=== PATIENT | male | born 1995 | race African-American/Black ===

== ENCOUNTER 2020-02-20 23:20 | Emergency (ER) | payer OTHER, MEDICAID, SELFPAY ==
[2020-02-21 00:44] VITALS: BP 126/64; PULSE 67; RESP 18; TEMP 36.9; O2SAT 98; BMI 29.0
--- NOTE | 2020-02-21 00:57 | CT_ITS ---
EXAMINATION: CT HEAD WITHOUT CONTRAST CLINICAL INFORMATION: Headache. Blurry vision. COMPARISON: None. TECHNIQUE: Contiguous axial imaging was performed from the skull base to vertex without intravenous contrast. This CT examination was performed using dose optimization techniques as appropriate, variously including the following: * Automated exposure control * Adjustment of mA and/or kV according to patient size (this includes techniques or standardized protocols for targeted exams where dose is matched to indication/reason for exam; i.e. extremities or head) Use of iterative reconstruction technique DLP: 800 mGy-cm. FINDINGS: There is no evidence of acute intracranial hemorrhage or territorial infarction. No abnormal mass effect or midline shift is seen. Carranza to white matter differentiation is well preserved. No extra-axial fluid collections are identified. No hydrocephalus. No significant volume loss. There is no abnormal attenuation within the brain parenchyma. The osseous structures and soft tissues are normal. Right mastoid air cell effusion. The left mastoid air cells and visualized portions of the paranasal sinuses are well aerated. CT/CT head/brain wo con IMPRESSION: No acute intracranial pathology. Right mastoid air cell effusion.
--- NOTE | 2020-02-21 00:59 | ED_ITS ---
HPI - Headache General Chief Complaint: Headache Stated Complaint: MIGRAINE/EYE PAIN Time Seen by Provider: 02/21/20 00:49 Source: patient Mode of arrival: ambulatory Limitations: language barrier (Citizen [place] Speaking ) History of Present Illness HPI Narrative: 25yoM c PMHx of depression presenting to the ED c c/o headache at the temporal aspect for a few weeks that has been intermittent worse c light sensitivity. and associated blurry vision. Patient reports he has tried [id number] Motrin and Tylenol with no symptomatic relief. Denies any associated symptoms or any additional complaints or concerns at this time. Related Data Allergies Allergy/AdvReac Type Severity Reaction Status Date / Time No Known Allergies Allergy Verified 02/21/20 00:52 [No Known Allergies*] Review of Systems Review of Systems: Constitutional : No Weight loss, No Fever, No Chills, No Night Sweats, No Fatigue, No Malaise ENT/Mouth : No Hearing loss, No Ear Pain, No Nasal Congestion, No Sinus Pain, No Hoarseness, No sore throat, No Rhinorrhea, No Swallowing Difficulty Eyes: + Blurry Vision, No Eye Pain, No Swelling, No Redness, No Foreign Body, No Discharge, Cardiovascular : No Chest Pain, No SOB Respiratory : No Cough, No Sputum Gastrointestinal : No Nausea, No Vomiting, No Diarrhea, No Constipation, No abdominal Pain Genitourinary : no irregular bleeding, No Dysuria, No Urinary Frequency, No Hematuria Musculoskeletal : No joint pain, No Myalgias, No Joint Swelling Skin : No Skin Lesions, No rash Neuro :+Headache, No Weakness, No Numbness, No Paresthesias, No Loss of Consciousness, No Dizziness Heme/Lymph: No Lymphadenopathy Yes all other systems are reviewed and are negative [facility] Past Medical History Attestation statement: The following information was validated with the patient. Medical History Depression Surgical History No significant past surgical history Social History Social History Advance Directives: No Physical Exam Vital Signs: Vital Signs: Vital Signs Temp Pulse Resp BP Pulse Ox 02/21/20 01:15 64 16 112/73 99 02/21/20 00:44 98.5 F 67 18 126/64 98 Body Mass Index 29.0 Vital signs have been reviewed as normal and appeared to be correct. Blood pressure normal. Heart rate normal. Respiration rate normal. Temperature normal. Oxygen saturation normal. Appearance: Alert. Oriented X3. No acute distress. Head: Normal external exam. Normocephalic. Atraumatic. Able to rotate head bila terally. No temporal artery tenderness. Eyes: PERRLA. EOMI. No nystagmus noted. Conjunctiva and sclera normal. Eyelids normal. Corneal reflex normal. ENT: EAC normal. TM's Normal. Hearing normal. Pharynx normal. Uvula midline. tongue midline. Moist mucous membranes. No trismus noted. No drooling noted. No muffled voice noted. Neck: Normal inspection. Neck supple. FROM. No adenopathy. Thyroid Normal. No meningeal signs. No neck mass noted. CVS: Normal heart rate and rhythm. Heart sound normal. No murmurs noted. Pulses normal throughout. Respiratory: No respiratory distress. Painless inspiration. Breath sounds normal. No wheezes/rales/rhonchi noted. Chest nontender. No accessory muscle usage noted or decreased air movement noted. Abdomen: Soft and nontender. Bowel sounds normal in all 4 quadrants. No distention noted. No organomegaly noted. No visible injury noted. Back: No CVA tenderness. Full range of motion noted. Skin: Skin warm and dry. Normal skin color. Normal skin turgor. No rashes/lesions/lacerations noted. Extremities: No lower extremity edema. Extremities exhibit normal range of motion. Extremities nontender. Able to shrug shoulders bilaterally and keep up against resistance. Neuro: Oriented X 3. No motor deficit. No sensory deficit. Reflexes normal. Mo ving all extremities. No focal motor deficits. Cranial nerves II-XI intact bilaterally. Facial strength normal. Normal cognition. Speech normal. Gait normal. Strength 5/5 throughout. No pronator drift. No tremor noted. No fasciculations noted. Muscle tone normal throughout. No asterixis noted. [id number] test normal. Heel to melo test normal. Tandem gait normal. Does not sway with eyes open. Romberg test negative. Rapid alternating movement upper extremity normal. Rapid alternating movement lower extremity normal. Hand drop from overhead-Mrs. face. No rigidity noted. NIHSS score 0. Course Course Course Narrative: 00:57AM 25yoM c PMHx of depression presenting to the ED c c/o headache at the temporal aspect for a few weeks that has been intermittent worse c light sensitivity. and associated blurry vision. - Patient afebrile, resting comfortably in no distress. Non-toxic appearing. Patient denies any recent trauma/injury to head. Neurological exam shows no deficits. BP WNL. Patient ambulates without difficulty. Given the history, and physical - most likely diagnosis: Migraine DUQUE or Cluster DUQUE. due to never having a headache before will obtain CT scan of brain. Will treat pain. Then re- evaluate. Reevaluation(s) Reevaluation #1: Labs within normal limits. Patient resting in bed. Her spray shins even and unlabored in no apparent distress. Awaiting CT scan of brain. Will re-evaluate. Time: 01:57 MDM - Headache MDM Narrative Medical decision making narrative: gradual onset DUQUE with photo/phonophobia. Most likely migraine HAs or Cluster HAs. SAH: unlikely given gradual onset. Intracranial bleed: unlikely given neg trauma, neg anticoagulation Meningitis: unlikely given pt afebrile, neg stiff neck, no immune compromise. Exam without signs of meningismus Temporal arteritis: Unlikely given Neg jaw claudication, no temporal tenderness or nodularity on exam. Cerebral venous thrombosis: unlikely given no h/o hypercoaguable state, no chronic head/neck infection. Medical Records Attestation: I reviewed the patient's medical records. Lab Data Attestation: I reviewed the patient's lab results. Result diagrams: 02/21/20 01:20 02/21/20 01:20 Labs: Lab Results 02/21/20 02/21/20 02/21/20 Range/Units 01:20 01:20 01:20 WBC 3.6 L (4.8-10.8) X10*3/uL RBC 5.17 (4.60-5.80) X10*6/uL Hgb 15.0 (14.0-18.0) g/dl Hct 45.0 (42-52) % MCV 87.0 (80-98) fL MCH 29.0 (27.0-33.0) pg MCHC 33.3 (31.0-36.0) g/dl RDW 11.8 (11.0-16.0) % Plt Count 291 (160-400) X10*3/uL MPV 9.2 L (9.4-12.4) fL Immature Gran % (Auto) 0.0 (0.0-0.4) % Neut % (Auto) 35.1 L (45-73) % Lymph % (Auto) 51.1 H (20-40) % [place] % (Auto) 10.2 (2-11) % Eos % (Auto) 2.5 (0-4) % Baso % (Auto) 1.1 (0-2) % Lymph # (Auto) 1.9 (1.2-4.9) X10*3/uL [place] # (Auto) 0.4 (0.1-1.2) X10*3/uL Eos # (Auto) 0.1 (0.0-0.4) X10*3/uL Baso # (Auto) 0.0 (0.0-0.2) X10*3/uL Abs Immat Gran (auto) 0.00 (0.00-0.03) X10*3/uL Absolute Neuts (auto) 1.3 L (2.0-8.3) X10*3/uL Absolute Nucleated RBC 0.000 (0.0-0.012) X10*3/uL Nucleated RBC % (auto) 0.0 (0.0-0.2) /100WBC PT 14.1 H (10.8-13.0) SEC INR 1.2 H (0.9-1.1) Sodium 140 (135-145) mmol/L Potassium 4.5 (3.3-5.1) mmol/l Chloride 104 (96-108) mmol/L Carbon Dioxide 27 (22-29) mmol/L Anion Gap 14 (12-20) BUN 20 H (9-16) mg/dL Creatinine 1.15 (0.5-1.4) mg/dL Estim Creat Clear Calc 99.9 Estimated GFR > 60 Random Glucose 109 (60-115) mg/dL Calcium 9.4 (8.4-10.2) mg/dL Magnesium 2.3 (1.6-2.6) mg/dL Total Bilirubin (0.0-1.0) mg/dL Direct Bilirubin (0.0-0.5) mg/dL AST (5-37) U/L ALT (0-40) U/L Alkaline Phosphatase (39-117) U/L C-Reactive Protein 0.21 (< or = 0.50) mg/dL Total Protein (6.5-8.0) g/dL Albumin (3.5-5.0) g/dL 02/21/20 Range/Units 01:20 WBC (4.8-10.8) X10*3/uL RBC (4.60-5.80) X10*6/uL Hgb (14.0-18.0) g/dl Hct (42-52) % MCV (80-98) fL MCH (27.0-33.0) pg MCHC (31.0-36.0) g/dl RDW (11.0-16.0) % Plt Count (160-400) X10*3/uL MPV (9.4-12.4) fL Immature Gran % (Auto) (0.0-0.4) % Neut % (Auto) (45-73) % Lymph % (Auto) (20-40) % [place] % (Auto) (2-11) % Eos % (Auto) (0-4) % Baso % (Auto) (0-2) % Lymph # (Auto) (1.2-4.9) X10*3/uL [place] # (Auto) (0.1-1.2) X10*3/uL Eos # (Auto) (0.0-0.4) X10*3/uL Baso # (Auto) (0.0-0.2) X10*3/uL Abs Immat Gran (auto) (0.00-0.03) X10*3/uL Absolute Neuts (auto) (2.0-8.3) X10*3/uL Absolute Nucleated RBC (0.0-0.012) X10*3/uL Nucleated RBC % (auto) (0.0-0.2) /100WBC PT (10.8-13.0) SEC INR (0.9-1.1) Sodium (135-145) mmol/L Potassium (3.3-5.1) mmol/l Chloride (96-108) mmol/L Carbon Dioxide (22-29) mmol/L Anion Gap (12-20) BUN (9-16) mg/dL Creatinine (0.5-1.4) mg/dL Estim Creat Clear Calc Estimated GFR Random Glucose (60-115) mg/dL Calcium (8.4-10.2) mg/dL Magnesium (1.6-2.6) mg/dL Total Bilirubin 0.7 (0.0-1.0) mg/dL Direct Bilirubin 0.3 (0.0-0.5) mg/dL AST 20 (5-37) U/L ALT 13 (0-40) U/L Alkaline Phosphatase 72 (39-117) U/L C-Reactive Protein (< or = 0.50) mg/dL Total Protein 7.6 (6.5-8.0) g/dL Albumin 4.7 (3.5-5.0) g/dL Discharge Plan Discharge Clinical Impression: Headache Instructions: Acute Headache (ED) Referrals: Ashley Camarillo MD [Primary Care Provider] - 2 days Print Language: Citizen [place]
[2020-02-21 01:15] VITALS: BP 112/73; PULSE 64; RESP 16; O2SAT 99
[2020-02-21] MEDS: 0.9 % Sodium Chloride 1,000 ML 999 ML IVCONT (01:23)
[2020-02-21 01:26] LABS: MANUAL DIFF FLAG NO
[2020-02-21 01:29] LABS: Basophils Percent Auto 1.1 % (0-2); Eosinophils Absolute Auto 0.1 X10*3/uL (0.0-0.4); Eosinophils Percent Auto 2.5 % (0-4); Lymphocytes Absolute Auto 1.9 X10*3/uL (1.2-4.9); Lymphocytes Percent Auto 51.1 % (20-40); Mean Corpuscular HGB Conc 33.3 g/dl (31.0-36.0); Mean Platelet Volume 9.2 fL (9.4-12.4); Monocytes Absolute Auto 0.4 X10*3/uL (0.1-1.2); Monocytes Percent Auto 10.2 % (2-11); Neutrophils Absolute Auto 1.3 X10*3/uL (2.0-8.3); Neutrophils Percent Auto 35.1 % (45-73); Platelet Count 291 X10*3/uL (160-400); Red Blood Count 5.17 X10*6/uL (4.60-5.80); Red Cell Distribution Width 11.8 % (11.0-16.0); White Blood Count 3.6 X10*3/uL (4.8-10.8)
[2020-02-21 01:36] LABS: INTERNATIONAL NORM RATIO 1.2 (0.9-1.1); Prothrombin Time 14.1 SEC (10.8-13.0)
[2020-02-21 01:50] LABS: Anion Gap 14 (12-20); Blood Urea Nitrogen 20 mg/dL (9-16); C Reactive Protein 0.21 mg/dL (< or = 0.50); Calcium 9.4 mg/dL (8.4-10.2); Carbon Dioxide 27 mmol/L (22-29); Chloride 104 mmol/L (96-108); Creatinine Clr Calc Pharmacy 99.9; Estimated Glomerular Filt Rate > 60; Glucose Random 109 mg/dL (60-115); Magnesium 2.3 mg/dL (1.6-2.6); Potassium 4.5 mmol/l (3.3-5.1); Sodium 140 mmol/L (135-145)
[2020-02-21 01:51] LABS: Alanine Aminotransferase 13 U/L (0-40); Albumin Level 4.7 g/dL (3.5-5.0); Alkaline Phosphatase 72 U/L (39-117); Aspartate Amino Transferase 20 U/L (5-37); Bilirubin Direct 0.3 mg/dL (0.0-0.5); Bilirubin Total 0.7 mg/dL (0.0-1.0); Total Protein 7.6 g/dL (6.5-8.0)
[2020-02-21 02:17] LABS: Erythrocyte Sedimentation Rate 2 MM/HR (0-15)
== END 2020-02-21 03:33 | disposition home or self-care (01) ==
PROVIDERS: Physician Assistant Medical; Emergency Provider Emergency Medicine; PCP Internal Medicine
DX: R51.9 Headache, unspecified (principal); H57.13 Ocular pain, bilateral
CPT/HCPCS: 36415; 70450; 80048; 80076; 83735; 85025; 85610; 85652; 86140; 96361; 96374; 99284

== ENCOUNTER 2020-07-08 09:02 | Outpatient (REF) | payer OTHER, MEDICAID, SELFPAY ==
--- NOTE | 2020-07-08 | PFT_ITS ---
Forced vital capacity and FEV1 are both slightly decreased. FEV1/FVC ratio 75, [id number] is moderately decreased. MVV also moderately decreased. Post bronchodilator therapy, there is significant improvement in [id number] and MVV. Total lung capacity and residual volume are normal. Diffusion capacity normal. CONCLUSION: There is a mild obstructive airway disorder involving small airways and it improved to almost normal after bronchodilator therapy. This finding may indicate mild bronchial asthma. Clinical correlation is recommended. Nerissa Painter MD MSB/MODL / [id number]
== END 2020-07-08 09:03 | disposition home or self-care (01) ==
LOC: HO.RESP 09:02
PROVIDERS: PCP Internal Medicine; Visit Provider Internal Medicine
DX: R06.02 Shortness of breath (principal)
CPT/HCPCS: 94060; 94727; 94729

== ENCOUNTER 2020-07-22 14:58 | Outpatient (REF) | payer OTHER, MEDICAID, SELFPAY ==
--- NOTE | 2020-07-22 | PFT_ITS ---
SPIROMETRY: FEV1 of 76% of predicted at 3.21 L. FVC 79% of predicted at 4.01 L. FEV1 to FVC ratio of 0.80. METHACHOLINE CHALLENGE: There has been no significant changes in FEV1 with full range of administered methacholine concentrations. IMPRESSION: Normal spirometry. No bronchodilator response. Negative methacholine challenge test. MD JENA Greenberg/MODL / [id number]
== END 2020-07-22 14:59 | disposition home or self-care (01) ==
LOC: HO.RESP 14:58
PROVIDERS: PCP Internal Medicine; Visit Provider Internal Medicine
DX: R06.02 Shortness of breath (principal)
CPT/HCPCS: 94070

== ENCOUNTER 2020-10-28 10:16 | Emergency (ER) | payer OTHER, MEDICAID, SELFPAY ==
[2020-10-28 10:32] VITALS: BP 104/62; PULSE 87; RESP 18; TEMP 37.2; O2SAT 97; BMI 28.8
[2020-10-28 11:39] LABS: COVID-19 Test Negative (Negative); IDNOW Serial# 9DD0AD1C
--- NOTE | 2020-10-28 12:04 | ED.GENADULT ---
HPI - General Adult General Chief complaint: General Medical Stated complaint: CHILLS Time Seen by Provider: 10/28/20 11:06 History of Present Illness HPI narrative: patient complains of runny nose congestion and sinus pressure and a mild frontal headache for 4-5 days, with body aches fatigue, no fever, mild cough not productive of sputum, no shortness of breath no sore throat Related Data Previous Rx's Medication Instructions Recorded amoxicillin-pot clavulanate 1 tab PO BID 7 Days #14 tab 02/21/20 [Augmentin] cyclobenzaprine 10 mg PO TID PRN #14 tab 02/21/20 ibuprofen 600 mg PO Q6H PRN #30 tab 02/21/20 acetaminophen 1,000 mg PO QID PRN #20 tab 10/28/20 amoxicillin 500 mg PO TID 7 Days #21 tab 10/28/20 ibuprofen 600 mg PO Q6H PRN #20 tab 10/28/20 Allergies Allergy/AdvReac Type Severity Reaction Status Date / Time No Known Allergies Allergy Verified 02/21/20 00:52 [No Known Allergies*] Review of Systems Review of Systems: Positive for runny nose, congestion and frontal headache Negatives are no fever no chills no dizziness no weakness no fainting no feeling faint no sore throat no difficulty breathing or swallowing no chest pain no sputum no shortness of breath no abdominal pain no nausea vomiting or diarrhea no dysuria no rash Yes all other systems are reviewed and are negative [facility] Past Medical History Source: nursing notes reviewed Medical History Depression Surgical History No significant past surgical history Social History Social History Advance Directives: No Advance Directives Information Provided: No Physical Exam Vital Signs: Vital Signs: Last Vital Signs Temp 99 F 10/28/20 10:32 Pulse 87 10/28/20 10:32 Resp 18 10/28/20 10:32 BP 104/62 10/28/20 10:32 Pulse Ox 97 10/28/20 10:32 Body Mass Index 28.8 General appearance is no acute distress Head is normocephalic atraumatic The ears have normal tympanic membranes no redness and canals are patent and normal The eyes no redness or discharge The pharynx no redness swelling or exudate, mucous membranes are moist Neck is supple without lymphadenopathy The nose did have a sinus tenderness, the frontal headache is reproduced with putting the head down and is in the area of the maxillary sinuses, the patient was congested Chest is clear to auscultation bilateral Heart no murmur Abdomen soft nontender Skin no rash Course Course Course Narrative: Patient with symptoms of sinusitis is treated with antibiotic and told if this may be viral but we are covering the possibility of bacterial infection and will return for any worsening condition COVID testing was negative Medical Decision Making Lab Data Labs: Lab Results 10/28/20 Range/Units 11:16 COVID-19 (SUNIL) Negative (Negative) COVID-19 Clin Com See Note Discharge Plan Discharge Clinical Impression: Sinusitis Patient Disposition: Home, Self-Care Additional Instructions: we are treating for sinusitis with amoxicillin For the sinus headache you can take Motrin and or Tylenol Return any time for any worse condition or any concerns Prescriptions: New amoxicillin 500 mg tablet 500 mg PO TID 7 Days Qty: 21 RF: 0 acetaminophen 500 mg tablet 1,000 mg PO QID PRN (Reason: pain) Qty: 20 RF: 0 ibuprofen 600 mg tablet 600 mg PO Q6H PRN (Reason: pain) Qty: 20 RF: 0 No Action cyclobenzaprine 10 mg tablet 10 mg PO TID PRN (Reason: muscle spasm) Qty: 14 RF: 0 ibuprofen 600 mg tablet 600 mg PO Q6H PRN (Reason: pain) Qty: 30 RF: 0 amoxicillin-pot clavulanate [Augmentin] 875-125 mg tablet 1 tab PO BID 7 Days Qty: 14 RF: 0 Stand Alone Forms: Work/School Release Interventions: ED Discharge Assessment Last Done: 10/28/20 12:05 Discharge Date/Time: 10/28/20 12:06
== END 2020-10-28 12:06 | disposition home or self-care (01) ==
PROVIDERS: Physician Assistant Medical; Emergency Provider Emergency Medicine; PCP Internal Medicine
DX: J32.9 Chronic sinusitis, unspecified (principal); Z20.822 Contact with and (suspected) exposure to COVID-19
CPT/HCPCS: 36415; 87635; 99283

== ENCOUNTER 2020-12-27 11:38 | Outpatient (REF) | payer OTHER, MEDICAID, SELFPAY ==
[2020-12-27 11:54] LABS: COVID-19 Test Positive (Negative)
== END 2020-12-27 11:39 | disposition home or self-care (01) ==
LOC: HO.LAB 11:38
PROVIDERS: PCP Internal Medicine; Visit Provider Internal Medicine
DX: Z20.822 Contact with and (suspected) exposure to COVID-19 (principal)
CPT/HCPCS: 36415; 87635; C9803

== ENCOUNTER 2021-01-06 15:40 | Outpatient (REF) | payer OTHER, MEDICAID, SELFPAY | END 2021-01-06 15:41 | disposition home or self-care (01) | LOC: HO.LAB 15:40 | PROVIDERS: PCP Internal Medicine; Visit Provider Internal Medicine | DX: Z20.822 Contact with and (suspected) exposure to COVID-19 (principal) | CPT/HCPCS: C9803; U0003; U0005 ==

== ENCOUNTER 2021-01-13 11:47 | Outpatient (REF) | payer OTHER, MEDICAID, SELFPAY | END 2021-01-13 11:48 | disposition home or self-care (01) | LOC: HO.LAB 11:47 | PROVIDERS: PCP Internal Medicine; Visit Provider Internal Medicine | DX: Z20.822 Contact with and (suspected) exposure to COVID-19 (principal) | CPT/HCPCS: C9803; U0003; U0005 ==

== ENCOUNTER 2021-02-03 11:08 | Inpatient (IN) | payer OTHER, MEDICAID, SELFPAY ==
[2021-02-03 11:13] VITALS: BP 126/67; PULSE 64; RESP 18; TEMP 36.6; O2SAT 100; BMI 28.0
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
[2021-02-03 14:56] LABS: Basophils Percent Auto 0.9 % (0-2); Eosinophils Percent Auto 1.4 % (0-4); Hematocrit 44.5 % (42-52); Hemoglobin 14.8 g/dl (14.0-18.0); Lymphocytes Absolute Auto 0.9 X10*3/uL (1.2-4.9); Lymphocytes Percent Auto 42.1 % (20-40); MANUAL DIFF FLAG SCAN; Mean Corpuscular HGB Conc 33.3 g/dl (31.0-36.0); Mean Corpuscular Hemoglobin 29.3 pg (27.0-33.0); Mean Corpuscular Volume 88.1 fL (80-98); Mean Platelet Volume 9.4 fL (9.4-12.4); Monocytes Absolute Auto 0.2 X10*3/uL (0.1-1.2); Monocytes Percent Auto 7.5 % (2-11); Neutrophils Percent Auto 48.1 % (45-73); Platelet Count 256 X10*3/uL (160-400); Red Blood Count 5.05 X10*6/uL (4.60-5.80); Red Cell Distribution Width 12.4 % (11.0-16.0); SCAN SMEAR FLAG 1
[2021-02-03 14:58] LABS: White Blood Count 2.1 X10*3/uL (4.8-10.8)
[2021-02-03 15:01] LABS: Ethanol < 10 mg/dL
[2021-02-03 15:04] LABS: Amphetamine Screen Urine Not Detected (Not Detect); Barbiturates, Urine Not Detected (Not Detect); Benzodiazepines Screen Urine Not Detected (Not Detect); Cannabinoid Screen Urine Not Detected (Not Detect); Cocaine Screen Urine Not Detected (Not Detect); Fentanyl, urine Not Detected (Not Detect); Opiate Screen Urine Not Detected (Not Detect); Phencyclidine Screen Urine Not Detected (Not Detect)
[2021-02-03 15:05] LABS: Alanine Aminotransferase 17 U/L (0-40); Albumin Level 4.6 g/dL (3.5-5.0); Alkaline Phosphatase 83 U/L (39-117); Anion Gap 11 (12-20); Aspartate Amino Transferase 18 U/L (5-37); Bilirubin Total 0.7 mg/dL (0.0-1.0); Blood Urea Nitrogen 8 mg/dL (9-16); Calcium 9.6 mg/dL (8.4-10.2); Carbon Dioxide 30 mmol/L (22-29); Chloride 104 mmol/L (96-108); Creatinine Clr Calc Pharmacy 124.6; Estimated Glomerular Filt Rate > 60; Glucose Random 119 mg/dL (60-115); Potassium 4.1 mmol/L (3.3-5.1); Sodium 141 mmol/L (135-145); Total Protein 7.7 g/dL (6.5-8.0)
[2021-02-03 15:13] LABS: COVID-19 Test Negative (Negative)
[2021-02-03 15:14] LABS: SLIDE REVIEW VERIFIED
[2021-02-03 19:32] VITALS: BP 124/75; PULSE 85; RESP 20; TEMP 36.4; O2SAT 99
--- NOTE | 2021-02-03 23:17 | MHC.CARE ---
CARE team spoke with EBENEZER Jones bridge expert, re: CINDY for a clinician to evaluate pt. No clinician available until the morning. CARE team completed assessment. This automobile service writer was unable to reach pt's by phone (turned off, voicemail box full). Pt will be held in the ED pending collateral information.
[2021-02-03 23:41] VITALS: BP 105/66; PULSE 60; RESP 18; TEMP 36.9; O2SAT 98
--- NOTE | 2021-02-04 | ECG_ITS ---
Test Reason : MEDICAL CLEARANCE Blood Pressure : / mmHG Vent. Rate : 059 BPM Atrial Rate : 059 BPM P-R Int : 170 ms QRS Dur : 098 ms QT Int : 396 ms P-R-T Axes : 045 003 020 degrees QTc Int : 392 ms Sinus bradycardia with sinus arrhythmia RSR' or QR pattern in V1 suggests right ventricular conduction delay Borderline ECG No previous ECGs available Referred By: Milagro Steinberg Electronically Signed By:MARILIA CARRION MD
--- NOTE | 2021-02-04 06:35 | PC.NURSE ---
Patient slept through the night, no distress observed/reported, behavior appropriate, patient is currently no on any medication, patient was seen by care team, disposition was Page F/U due to un-ability get hold of his . will continue to monitor.
--- NOTE | 2021-02-04 07:34 | PC.NURSE ---
patient appears asleep at present, respirations are even and unlabored appears in no distress
[2021-02-04 08:29] VITALS: BP 112/62; PULSE 73; RESP 17; TEMP 36.6; O2SAT 99
--- NOTE | 2021-02-04 11:39 | PHA.MEDREC ---
Pharmacy Consult ? Medication Reconciliation Pharmacy has completed the medication reconciliation. Patient reports he does not like how his medication make him feel. They make him feel fuzzy and out of it. He report taking olanzapine and trazodone. He has no idea what carbamezapine is. If any changes are made he wants his PCP to be consulted. Diana Gomez, PharmD
[2021-02-04 16:46] VITALS: BP 103/73; PULSE 60; RESP 18; TEMP 37.4; O2SAT 100
[2021-02-04 22:00] VITALS: BP 132/81; PULSE 63; RESP 15; TEMP 36.5; O2SAT 99
--- NOTE | 2021-02-05 00:04 | PC.ADMIT ---
Addendum entered by Sandra Suazo RN 02/05/21 00:14: Arts Manager utilized during complete admission assessment Original Note: Pt is a 26 year old citizen of [place] speaking male who came into [facility] due to his reporting a change in behavior the past 2 weeks. Pt stated that he has indeed been struggling with changes in his mood and impulsively talking to his badly and it is unlike me, this is why I am here . Tox screen negative. Seems to be religiously preoccupied with frequent references to being Muslim. Denies SI/HI/AVH. However, per eval he stated he has 3 voices himself, god, and a male voice . Pleasant and future oriented. Placed on 15 minute checks. CV signed.
[2021-02-05 09:24] VITALS: BP 99/50; PULSE 60; RESP 16; TEMP 36.7; O2SAT 99
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
[2021-02-06] MEDS: Lithium Carbonate ER 450 MG TABLET.ER PO ×2 (00:01→21:50)
[2021-02-06 05:27] VITALS: BP 125/76; PULSE 58; TEMP 36.3; O2SAT 99
[2021-02-06 07:00] VITALS: BMI 27.4
[2021-02-06 08:56] LABS: Estimated Average Glucose 100 mg/dL; Hemoglobin A1c % 5.1 %
[2021-02-06 09:14] LABS: Cholesterol 206 mg/dL; HDL Cholesterol 61 mg/dL; LDL Cholesterol Calculated 132 mg/dl; Triglycerides 66 mg/dL
--- NOTE | 2021-02-06 09:58 | HO.PSYCHPN ---
Subjective Subjective Date of Service: 02/08/21 Reason For Visit: psychosis Subjective Notes: Conditional Voluntary Interim History: Pt continues to present as hyperverbal, very religiously preoccupied. He reports he should not be sleeping too much because he is not praying enough. He does think that if he prays for everyone and everything things will change in the world. He denies SI/HI. His sleep slightly improving with lithium. He reports some nausea with lithium but states is mild. Per nursing, he has been visible in the unit, social with select peers. Medication Compliance: Yes Side effects from medications: No Attending Groups: Yes Review of Systems Acute medical concerns: No Review of Systems Constitutional: Denies fatigue and Denies fever(s) Eyes: Denies no additional eye complaints Reports system reviewed and no additional complaints, except as documented Cardiovascular: Denies chest pain, Denies chest pain at rest, Denies chest pain with activity, Denies Epigastric Pain, Denies rapid heart rate, Denies irregular heart rhythm and Denies dyspnea Respiratory: Denies no additional respiratory complaints, Denies chest congestion, Denies cough and Denies dyspnea Gastrointestinal: Denies constipation, Denies diarrhea and Denies vomiting Endocrine: Denies fatigue Mental Status Exam Mental Status Exam Narrative: Appearance: casually groomed, fair hygiene in NAD Behavior: overly friendly, cooperative but guarded when talking about need for tx. psychomotor:no agitation or retardation noted Speech:clear, normal rate, hyper verbal but not pressured, regular tone, spontaneous Thought process:tangential, flight of ideas. Thought content:hyper religiosity, flight of ideas Mood: fine Affect: dysphoric, tearful at times SI:none HI:none VH/AH:AH of God Delusions:hyper confucianism delusions Insight/judgment:impaired x 2. Memory/cog: alert, oriented x 3. attention poor, executive function impaired due to psychotic symptoms. Diagnostics Vital Signs (24Hr): Vital Signs - 24 hr 02/07/21 18:00 02/08/21 06:00 Temperature 96.3 F L 97.0 F Pulse Rate 68 63 Respiratory Rate 18 Blood Pressure 114/74 119/81 Pulse Oximetry 98 100 Body Mass Index 27.4 Labs Results: 02/08/21 07:25 02/03/21 14:40 Labs: Laboratory Results - last 48 hr 02/08/21 07:25 WBC 4.2 L RBC 5.47 Hgb 15.7 Hct 47.1 MCV 86.1 MCH 28.7 MCHC 33.3 RDW 12.3 Plt Count 278 MPV 9.7 Immature Gran % (Auto) 0.2 Neut % (Auto) 37.4 L Lymph % (Auto) 44.8 H [place] % (Auto) 13.3 H Eos % (Auto) 3.1 Baso % (Auto) 1.2 Lymph # (Auto) 1.9 [place] # (Auto) 0.6 Eos # (Auto) 0.1 Baso # (Auto) 0.1 Abs Immat Gran (auto) 0.01 Absolute Neuts (auto) 1.6 L Absolute Nucleated RBC 0.000 Nucleated RBC % (auto) 0.0 Medications Medications Current Medications [place] Carbonate ([place] Carbonate Er 450 Mg Tablet.Er) 450 mg PO BEDTIME WEN Last Admin: 02/07/21 20:29 Dose: 450 mg Documented by: Ondansetron HCl (Ondansetron Odt 4 Mg Tab.Rapdis) 4 mg TRANSLINGU Q8H PRN PRN Reason: Nausea Last Admin: 02/08/21 01:27 Dose: 4 mg Documented by: Pharmacy Consult (Consult Rx Perform Med Rec) 1 each MISCELLANE ONCE PRN PRN Reason: Consult order Allergies Allergies Allergy/AdvReac Type Severity Reaction Status Date / Time No Known Allergies Allergy Verified 02/21/20 00:52 [No Known Allergies*] Assessment & Plan Assessment & Plan (1) Bipolar 1 disorder with moderate horacio: Status: Acute Code(s): F31.12 - Bipolar disorder, current episode manic without psychotic features, moderate Assessment and Plan: Mr. Agudelo is a 26 year-old male with hx of Bipolar Disorder who was brought to [facility] after called due to pt presenting increasingly more confucianism preoccupied, decreased need for sleep, bizarre behaviors, AH. He has been on olanzapine since last 07/2019 dose progressively decreased as pt reported not wanting to take it as he was tired. Note that pt has chronic leukopenia- appears prior to initiation of Olanzapine per report from his PCP with whom I spoke, Dr. Ashley Camarillo. No follow up work up re: leukopenia but do worry about olanzapine worsening it. Currently ANC 1000. We discussed starting lithium for mood stabilization- with benefit of increasing WBC. PLAN 1. Admit to M5 2. Start [place] CR 450mg po qhs- adjust as needed 3. May consider hematology consult re: chronic leukopenia with ANC 1000. 4. Obtain collateral information 5. Aftercare planning Greater than 50% of the session was spent on counseling and/or coordination of care Reason for contiued inpatient stay Substantial Risk for: inability to function
[2021-02-06 21:55] VITALS: BP 132/74; PULSE 83; RESP 15; TEMP 36.8; O2SAT 98
[2021-02-07 06:00] VITALS: BP 124/71; PULSE 54; RESP 16; TEMP 36.3; O2SAT 98
--- NOTE | 2021-02-07 10:00 | P.PNPSI_ITS ---
Subjective Subjective Date of Service: 02/08/21 Reason For Visit: psychosis Interim History: Pt slightly less hyperverbal, less religiously preoccupied although carries bible around in the unit. He reports he notes that he is not as talkative as before when he talks with . He reports he needs treatment and and prays for this marketing copywriter to help him He denies SI/HI. His sleep slightly im proving with lithium. He reports some nausea with lithium but states is mild. zofran added for nausea. Per nursing, he has been visible in the unit, social with select peers. Review of Systems Constitutional: Denies fatigue and Denies fever(s) Eyes: Denies no additional eye complaints Reports system reviewed and no additional complaints, except as documented Cardiovascular: Denies chest pain, Denies chest pain at rest, Denies chest pain with activity, Denies Epigastric Pain, Denies rapid heart rate, Denies irregular heart rhythm and Denies dyspnea Respiratory: Denies no additional respiratory complaints, Denies chest congestion, Denies cough and Denies dyspnea Gastrointestinal: Denies constipation, Denies diarrhea and Denies vomiting Endocrine: Denies fatigue Mental Status Exam Mental Status Exam Narrative: Appearance: casually groomed, fair hygiene in NAD Behavior: overly friendly, cooperative but guarded when talking about need for tx. psychomotor:no agitation or retardation noted Speech:clear, normal rate, hyper verbal but not pressured, regular tone, spontaneous Thought process:tangential, flight of ideas. Thought content:hyper religiosity, flight of ideas Mood: fine Affect: dysphoric, tearful at times SI:none HI:none VH/AH:AH of God Delusions:hyper caodaism delusions Insight/judgment:impaired x 2. Memory/cog: alert, oriented x 3. attention poor, executive function impaired due to psychotic symptoms. Diagnostics Vital Signs (24Hr): Vital Signs - 24 hr 02/07/21 18:00 02/08/21 06:00 Temperature 96.3 F L 97.0 F Pulse Rate 68 63 Respiratory Rate 18 Blood Pressure 114/74 119/81 Pulse Oximetry 98 100 Body Mass Index 27.4 Labs Results: 02/08/21 07:25 02/03/21 14:40 Labs: Laboratory Results - last 48 hr 02/08/21 07:25 WBC 4.2 L RBC 5.47 Hgb 15.7 Hct 47.1 MCV 86.1 MCH 28.7 MCHC 33.3 RDW 12.3 Plt Count 278 MPV 9.7 Immature Gran % (Auto) 0.2 Neut % (Auto) 37.4 L Lymph % (Auto) 44.8 H [place] % (Auto) 13.3 H Eos % (Auto) 3.1 Baso % (Auto) 1.2 Lymph # (Auto) 1.9 [place] # (Auto) 0.6 Eos # (Auto) 0.1 Baso # (Auto) 0.1 Abs Immat Gran (auto) 0.01 Absolute Neuts (auto) 1.6 L Absolute Nucleated RBC 0.000 Nucleated RBC % (auto) 0.0 Medications Medications Current Medications [place] Carbonate ([place]er Carbonate Er 450 Mg Tablet.Er) 450 mg PO BEDTIME WEN Last Admin: 02/07/21 20:29 Dose: 450 mg Documented by: Ondansetron HCl (Ondansetron Odt 4 Mg Tab.Rapdis) 4 mg TRANSLINGU Q8H PRN PRN Reason: Nausea Last Admin: 02/08/21 01:27 Dose: 4 mg Documented by: Pharmacy Consult (Consult Rx Perform Med Rec) 1 each MISCELLANE ONCE PRN PRN Reason: Consult order Allergies Allergies Allergy/AdvReac Type Severity Reaction Status Date / Time No Known Allergies Allergy Verified 02/21/20 00:52 [No Known Allergies*] Assessment & Plan Assessment & Plan (1) Bipolar 1 disorder with moderate horacio: Status: Acute Code(s): F31.12 - Bipolar disorder, current episode manic without psychotic features, moderate Assessment and Plan: Mr. Agudelo is a 26 year-old male with hx of Bipolar Disorder who was brought to [facility] [place] [place] ED after called due to pt presenting increasingly more caodaism preoccupied, decreased need for sleep, bizarre behaviors, AH. He has been on olanzapine since last 07/2019 dose progressively decreased as pt reported not wanting to take it as he was tired. Note that pt has chronic leukopenia- appears prior to initiation of Olanzapine per report from his PCP with whom I spoke, Dr. Ashley Camarillo. No follow up work up re: leukopenia but do worry about olanzapine worsening it. Currently ANC 1000. We discussed starting lithium for mood stabilization- with benefit of increasing WBC. PLAN 1. Admit to M5 2. Continue [place] CR 450mg po qhs- adjust as needed 3. May consider hematology consult re: chronic leukopenia with ANC 1000. cbc recheck on 02/10 4. Obtain collateral information 5. Aftercare planning Greater than 50% of the session was spent on counseling and/or coordination of care Reason for contiued inpatient stay Substantial Risk for: inability to function
[2021-02-07 18:00] VITALS: BP 114/74; PULSE 68; TEMP 35.7; O2SAT 98
[2021-02-07] MEDS: Lithium Carbonate ER 450 MG TABLET.ER PO (20:29)
[2021-02-08] MEDS: Ondansetron ODT 4 MG TAB.RAPDIS TRANSLINGU ×2 (01:27→21:05)
[2021-02-08 06:00] VITALS: BP 119/81; PULSE 63; RESP 18; TEMP 36.1; O2SAT 100
[2021-02-08 08:24] LABS: MANUAL DIFF FLAG NO
[2021-02-08 08:35] LABS: Basophils Absolute Auto 0.1 X10*3/uL (0.0-0.2); Basophils Percent Auto 1.2 % (0-2); Eosinophils Absolute Auto 0.1 X10*3/uL (0.0-0.4); Eosinophils Percent Auto 3.1 % (0-4); Hematocrit 47.1 % (42-52); Hemoglobin 15.7 g/dl (14.0-18.0); Imm Gran Abs Auto 0.01 X10*3/uL (0.00-0.03); Imm Gran Pct Auto 0.2 % (0.0-0.4); Lymphocytes Absolute Auto 1.9 X10*3/uL (1.2-4.9); Lymphocytes Percent Auto 44.8 % (20-40); Mean Corpuscular HGB Conc 33.3 g/dl (31.0-36.0); Mean Corpuscular Hemoglobin 28.7 pg (27.0-33.0); Mean Corpuscular Volume 86.1 fL (80-98); Mean Platelet Volume 9.7 fL (9.4-12.4); Monocytes Absolute Auto 0.6 X10*3/uL (0.1-1.2); Monocytes Percent Auto 13.3 % (2-11); Neutrophils Absolute Auto 1.6 X10*3/uL (2.0-8.3); Neutrophils Percent Auto 37.4 % (45-73); Platelet Count 278 X10*3/uL (160-400); Red Blood Count 5.47 X10*6/uL (4.60-5.80); Red Cell Distribution Width 12.3 % (11.0-16.0); White Blood Count 4.2 X10*3/uL (4.8-10.8)
[2021-02-08 16:45] VITALS: BP 119/61; PULSE 63; TEMP 36.6
[2021-02-08] MEDS: Lithium Carbonate ER 450 MG TABLET.ER PO (21:00)
--- NOTE | 2021-02-08 22:18 | HO.PSYCHPN ---
Subjective Subjective Date of Service: 02/08/21 Reason For Visit: psychosis Subjective Notes: Conditional Voluntary Guardianship: No Interim History: Patient calmer asking questions about bipolar disorder and medication. Given literature in Vietnamese much decrease in manic and anglican preoccupation Medication Compliance: Yes Side effects from medications: Yes Mental Status Exam Mental Status Exam Patient Appearance: Well Grooomed Patient Orientation: Person, Place, Time and Situation Level of Consciousness: Awake Patient Behavior: Appropriate Mood Description: Anxious and Apprehensive Affect Description: Calm Ability to Follow Directions: Good Speech Pattern: Clear and Appropriate Memory Description: Episodic Impaired Hallucinations: None Thought Process: Intact and Rumination Judgement and Insight: Patient able to take in information regarding diagnosis ask for help less anglican preoccupation not euphoric Diagnostics Vital Signs (24Hr): Vital Signs - 24 hr 02/08/21 06:00 Temperature 97.0 F Pulse Rate 63 Respiratory Rate 18 Blood Pressure 119/81 Pulse Oximetry 100 Body Mass Index 27.4 Labs Results: 02/08/21 07:25 02/03/21 14:40 Labs: Laboratory Results - last 48 hr 02/08/21 07:25 WBC 4.2 L RBC 5.47 Hgb 15.7 Hct 47.1 MCV 86.1 MCH 28.7 MCHC 33.3 RDW 12.3 Plt Count 278 MPV 9.7 Immature Gran % (Auto) 0.2 Neut % (Auto) 37.4 L Lymph % (Auto) 44.8 H [place] % (Auto) 13.3 H Eos % (Auto) 3.1 Baso % (Auto) 1.2 Lymph # (Auto) 1.9 [place] # (Auto) 0.6 Eos # (Auto) 0.1 Baso # (Auto) 0.1 Abs Immat Gran (auto) 0.01 Absolute Neuts (auto) 1.6 L Absolute Nucleated RBC 0.000 Nucleated RBC % (auto) 0.0 Medications Medications Current Medications [place] Carbonate ([place] Carbonate Er 450 Mg Tablet.Er) 450 mg PO BEDTIME WEN Last Admin: 02/08/21 21:00 Dose: 450 mg Documented by: Ondansetron HCl (Ondansetron Odt 4 Mg Tab.Rapdis) 4 mg TRANSLINGU Q8H PRN PRN Reason: Nausea Last Admin: 02/08/21 21:05 Dose: 4 mg Documented by: Pharmacy Consult (Consult Rx Perform Med Rec) 1 each MISCELLANE ONCE PRN PRN Reason: Consult order Allergies Allergies Allergy/AdvReac Type Severity Reaction Status Date / Time No Known Allergies Allergy Verified 02/21/20 00:52 [No Known Allergies*] Assessment & Plan Assessment & Plan (1) Bipolar 1 disorder with moderate horacio: Status: Acute Code(s): F31.12 - Bipolar disorder, current episode manic without psychotic features, moderate Assessment and Plan: Mr. Agudelo is a 26 year-old male with hx of Bipolar Disorder who was brought to [facility] ED after called due to pt presenting increasingly more anglican preoccupied, decreased need for sleep, bizarre behaviors, AH. He has been on olanzapine since last 07/2019 dose progressively decreased as pt reported not wanting to take it as he was tired. Note that pt has chronic leukopenia- appears prior to initiation of Olanzapine per report from his PCP with whom I spoke, Dr. Ashley Camarillo. No follow up work up re: leukopenia but do worry about olanzapine worsening it. Currently ANC 1000. We discussed starting lithium for mood stabilization- with benefit of increasing WBC. PLAN 1. Admit to M5 2. Continue [place] CR 450mg po qhs- adjust as needed 3. May consider hematology consult re: chronic leukopenia with ANC 1000. cbc recheck on 02/10 4. Obtain collateral information 5. Aftercare planning 02/08/21 Patient given literature regarding bipolar disorder reviewed treatment with mood stabilizing agents not grossly delusional when seen Less anglican preoccupation complains of nausea Decrease ANC noted Greater than 50% of the session was spent on counseling and/or coordination of care Reason for contiued inpatient stay Substantial Risk for: inability to function and rapid decompensation
[2021-02-09 06:00] VITALS: BP 128/83; PULSE 66; RESP 18; TEMP 36.4; O2SAT 99
[2021-02-09 18:00] VITALS: BP 120/78; PULSE 64; TEMP 37.1
[2021-02-09] MEDS: Lithium Carbonate ER 450 MG TABLET.ER PO (19:18)
[2021-02-09] MEDS: Ondansetron ODT 4 MG TAB.RAPDIS TRANSLINGU (19:53)
--- NOTE | 2021-02-09 21:53 | P.PNPSI_ITS ---
Subjective Subjective Date of Service: 02/09/21 Reason For Visit: psychosis Subjective Notes: Conditional Voluntary Guardianship: No Interim History: Patient come cooperative more isolated to his room. More preoccupied worried about his memory describes poor short-term memory word- finding and name finding problems history of multiple head injuries. 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 Thinking somewhat slowed but thoughtful asking how 1 develops bipolar disorder asking questions regarding lithium and regarding past head injuries. Alert cooperative mood anxious and somewhat blunted constricted not euphoric not grossly delusional no thoughts of harm to himself or others guarded regarding baptist preoccupation he is accepting treatment Diagnostics Vital Signs (24Hr): Vital Signs - 24 hr 02/09/21 06:00 02/09/21 18:00 Temperature 97.6 F 98.7 F Pulse Rate 66 64 Respiratory Rate 18 Blood Pressure 128/83 120/78 Pulse Oximetry 99 Body Mass Index 27.4 Labs Results: 02/08/21 07:25 02/03/21 14:40 Labs: Laboratory Results - last 48 hr 02/08/21 07:25 WBC 4.2 L RBC 5.47 Hgb 15.7 Hct 47.1 MCV 86.1 MCH 28.7 MCHC 33.3 RDW 12.3 Plt Count 278 MPV 9.7 Immature Gran % (Auto) 0.2 Neut % (Auto) 37.4 L Lymph % (Auto) 44.8 H [place] % (Auto) 13.3 H Eos % (Auto) 3.1 Baso % (Auto) 1.2 Lymph # (Auto) 1.9 [place] # (Auto) 0.6 Eos # (Auto) 0.1 Baso # (Auto) 0.1 Abs Immat Gran (auto) 0.01 Absolute Neuts (auto) 1.6 L Absolute Nucleated RBC 0.000 Nucleated RBC % (auto) 0.0 Medications Medications Current Medications [place] Carbonate ([place] Carbonate 300 Mg Tablet) 450 mg PO BEDTIME WEN Magnesium Hydroxide (Milk Of Magnesia 30 Ml Oral.Susp) 30 ml PO DAILY PRN PRN Reason: Constipation Ondansetron HCl (Ondansetron Odt 4 Mg Tab.Rapdis) 4 mg TRANSLINGU Q8H PRN PRN Reason: Nausea Last Admin: 02/09/21 19:53 Dose: 4 mg Documented by: Pharmacy Consult (Consult Rx Perform Med Rec) 1 each MISCELLANE ONCE PRN PRN Reason: Consult order Allergies Allergies Allergy/AdvReac Type Severity Reaction Status Date / Time No Known Allergies Allergy Verified 02/21/20 00:52 [No Known Allergies*] Assessment & Plan Assessment & Plan (1) Bipolar 1 disorder with moderate horacio: Status: Acute Code(s): F31.12 - Bipolar disorder, current episode manic without psychotic features, moderate Assessment and Plan: Mr. Agudelo is a 26 year-old male with hx of Bipolar Disorder who was brought to [facility] [place] ED after called due to pt presenting increasingly more baptist preoccupied, decreased need for sleep, bizarre behaviors, AH. He has been on olanzapine since last 07/2019 dose progressively decreased as pt reported not wanting to take it as he was tired. Note that pt has chronic leukopenia- appears prior to initiation of Olanzapine per report from his PCP with whom I spoke, Dr. Ashley Camarillo. No follow up work up re: leukopenia but do worry about saeed nzapine worsening it. Currently ANC 1000. We discussed starting lithium for mood stabilization- with benefit of increasing WBC. PLAN 1. Admit to M5 2. Continue [place] CR 450mg po qhs- adjust as needed 3. May consider hematology consult re: chronic leukopenia with ANC 1000. cbc recheck on 02/10 4. Obtain collateral information 5. Aftercare planning 02/08/21 Patient given literature regarding bipolar disorder reviewed treatment with mood stabilizing agents not grossly delusional when seen Less baptist preoccupation complains of nausea Decrease ANC noted 02/09/2021 Change lithium to immediate release at night may decrease daytime GI side effects would avoid Depakote Tegretol secondary to bone marrow suppression unclear etiology. Not absolute contraindication to antipsychotics would need close following. Check lithium level CBC with manual differential HIV and morning suggest Hematology consult Greater than 50% of the session was spent on counseling and/or coordination of care Reason for contiued inpatient stay Substantial Risk for: inability to function and rapid decompensation
[2021-02-10 06:00] VITALS: BP 102/53; PULSE 53; RESP 18; TEMP 36.2; O2SAT 99
[2021-02-10 08:17] LABS: Baso%MD 0.6 %; Hematocrit 45.5 % (42-52); Hemoglobin 15.2 g/dl (14.0-18.0); IG%MD 0.3 %; Mean Corpuscular HGB Conc 33.4 g/dl (31.0-36.0); Mean Corpuscular Hemoglobin 29.1 pg (27.0-33.0); Mean Platelet Volume 9.4 fL (9.4-12.4); Mono%MD 14.9 %; Neut%MD 49.2 %; Platelet Count 243 X10*3/uL (160-400); Red Blood Count 5.23 X10*6/uL (4.60-5.80); Red Cell Distribution Width 12.4 % (11.0-16.0); White Blood Count 3.3 X10*3/uL (4.8-10.8)
[2021-02-10 08:50] LABS: Lithium 0.41 mmol/L (0.60-1.20)
[2021-02-10 09:17] LABS: HIV AB/AG Nonreactive (Nonreactive); HIV Num 1 0.08 S/CO (0.00-0.99)
[2021-02-10 10:01] LABS: Atypical Lymphs Percent Manual 1 % (0-6); Band Neutrophils Percent 1 % (3-5); Eosinophils Absolute Manual 0.1 X10*3/UL (0.0-0.8); Eosinophils Percent Manual 3 % (0-4); Lymphocytes Absolute Manual 1.1 X10*3/uL (0.6-4.8); Lymphocytes Percent Manual 32 % (20-40); Monocytes Absolute Manual 0.5 X10*3/uL (0.0-1.2); Monocytes Percent Manual 16 % (2-11); Neutrophils Absolute Manual 1.6 X10*3/uL (2.2-7.9); Neutrophils Percent Manual 47 % (45-73); Platelet Estimate NORMAL (NORMAL); Platelet Morphology Comment NORMAL; RBC Morphology NORMAL
[2021-02-10 11:47] LABS: HIV AB/AG Nonreactive (Nonreactive); HIV Num 1 0.06 S/CO (0.00-0.99)
[2021-02-10 11:48] LABS: HBS Num1 > 1000.00 mIU/mL (0-7.99); ~Hepatitis B Surface Antibody REACTIVE (Nonreactive)
[2021-02-10 11:49] LABS: HBsAGNum1 0.26 S/CO (0.00-0.99); Hepatitis B Surface Antigen Negative (Negative); ~HepC Num1 0.07 S/CO (0.00-0.79); ~Hepatitis C Antibody Nonreactive (Nonreactive)
[2021-02-10 11:50] LABS: HBc Num1 0.09 S/CO (0.00-0.79); Hepatitis B Core Antibody Nonreactive (Nonreactive)
[2021-02-10 12:05] LABS: Folate 15.2 ng/mL (> or = 4.0); Vitamin B12 775 pg/mL (200-900)
--- NOTE | 2021-02-10 14:38 | HO.PSYCHPN ---
Subjective Subjective Date of Service: 02/10/21 Reason For Visit: psychosis Interim History: Pt reports sleeping through the night. He continues to see messages in dreams which pt interprets as he needs to pray more. He is slightly less religiously preoccupied. He is less hyperverbal. Some religiosity noted. We discussed starting antipsychotic- follow closely ANC, slight improved since admission from 1000 to 1600. Pt mostly in room with bible. encouraged to attend groups. No behavioral concern. Medication Compliance: Yes Side effects from medications: Yes (nausea with lithium) Review of Systems Constitutional: Denies fatigue and Denies fever(s) Eyes: Denies no additional eye complaints Reports system reviewed and no additional complaints, except as documented Cardiovascular: Denies chest pain, Denies chest pain at rest, Denies chest pain with activity, Denies Epigastric Pain, Denies rapid heart rate, Denies irregular heart rhythm and Denies dyspnea Respiratory: Denies no additional respiratory complaints, Denies chest congestion, Denies cough and Denies dyspnea Gastrointestinal: Denies constipation, Denies diarrhea and Denies vomiting Endocrine: Denies fatigue Diagnostics Vital Signs (24Hr): Vital Signs - 24 hr 02/09/21 18:00 02/10/21 06:00 Temperature 98.7 F 97.2 F Pulse Rate 64 53 Respiratory Rate 18 Blood Pressure 120/78 102/53 L Pulse Oximetry 99 Body Mass Index 27.4 Labs Results: 02/10/21 08:04 02/03/21 14:40 Labs: Laboratory Results - last 48 hr 02/10/21 02/10/21 02/10/21 08:04 08:04 08:04 WBC 3.3 L RBC 5.23 Hgb 15.2 Hct 45.5 MCV 87.0 MCH 29.1 MCHC 33.4 RDW 12.4 Plt Count 243 MPV 9.4 Absolute Nucleated RBC 0.000 Nucleated RBC % (auto) 0.0 Neutrophils % (Manual) 47 Band Neutrophils % 1 L Lymphocytes % (Manual) 32 Atypical Lymphs % (Man) 1 Monocytes % (Manual) 16 H Eosinophils % (Manual) 3 Abs Neuts (Manual) 1.6 L Lymphocytes # (Manual) 1.1 Monocytes # (Manual) 0.5 Eosinophils # (Manual) 0.1 Platelet Estimate NORMAL Plt Morphology Comment NORMAL RBC Morphology NORMAL Vitamin B12 Folate [place] 0.41 L Plasma Copper Serum Copper Hep Bs Antigen Hep Bs Antibody Hep B Core Total Ab Hepatitis C Ab (EIA) HIV 1&2 Ab/P24 Ag 4thGn Nonreactive 02/10/21 02/10/21 02/10/21 10:52 10:52 10:52 WBC RBC Hgb Hct MCV MCH MCHC RDW Plt Count MPV Absolute Nucleated RBC Nucleated RBC % (auto) Neutrophils % (Manual) Band Neutrophils % Lymphocytes % (Manual) Atypical Lymphs % (Man) Monocytes % (Manual) Eosinophils % (Manual) Abs Neuts (Manual) Lymphocytes # (Manual) Monocytes # (Manual) Eosinophils # (Manual) Platelet Estimate Plt Morphology Comment RBC Morphology Vitamin B12 775 Folate 15.2 [place] Plasma Copper TNP Serum Copper TNP Hep Bs Antigen Negative Hep Bs Antibody REACTIVE Hep B Core Total Ab Nonreactive Hepatitis C Ab (EIA) Nonreactive HIV 1&2 Ab/P24 Ag 4thGn 02/10/21 10:52 WBC RBC Hgb Hct MCV MCH MCHC RDW Plt Count MPV Absolute Nucleated RBC Nucleated RBC % (auto) Neutrophils % (Manual) Band Neutrophils % Lymphocytes % (Manual) Atypical Lymphs % (Man) Monocytes % (Manual) Eosinophils % (Manual) Abs Neuts (Manual) Lymphocytes # (Manual) Monocytes # (Manual) Eosinophils # (Manual) Platelet Estimate Plt Morphology Comment RBC Morphology Vitamin B12 Folate [place] Plasma Copper Serum Copper Hep Bs Antigen Hep Bs Antibody Hep B Core Total Ab Hepatitis C Ab (EIA) HIV 1&2 Ab/P24 Ag 4thGn Nonreactive Medications Medications Current Medications [place] Carbonate ([place] Carbonate 300 Mg Tablet) 450 mg PO BEDTIME WEN Magnesium Hydroxide (Milk Of Magnesia 30 Ml Oral.Susp) 30 ml PO DAILY PRN PRN Reason: Constipation Ondansetron HCl (Ondansetron Odt 4 Mg Tab.Rapdis) 4 mg TRANSLINGU Q8H PRN PRN Reason: Nausea Last Admin: 02/09/21 19:53 Dose: 4 mg Documented by: Pharmacy Consult (Consult Rx Perform Med Rec) 1 each MISCELLANE ONCE PRN PRN Reason: Consult order Allergies Allergies Allergy/AdvReac Type Severity Reaction Status Date / Time No Known Allergies Allergy Verified 02/21/20 00:52 [No Known Allergies*] Assessment & Plan Assessment & Plan (1) Bipolar 1 disorder with moderate horacio: Status: Acute Code(s): F31.12 - Bipolar disorder, current episode manic without psychotic features, moderate Assessment and Plan: Mr. Agudelo is a 26 year-old male with hx of Bipolar Disorder who was brought to [facility] [place] [facility] after called due to pt presenting increasingly more jain preoccupied, decreased need for sleep, bizarre behaviors, AH. He has been on olanzapine since last 07/2019 dose progressively decreased as pt reported not wanting to take it as he was tired. Note that pt has chronic leukopenia- appears prior to initiation of Olanzapine per report from his PCP with whom I spoke, Dr. Ashley Camarillo. No follow up work up re: leukopenia but do worry about olanzapine worsening it. Currently ANC 1000. We discussed starting lithium for mood stabilization- with benefit of increasing WBC. PLAN 1. Admit to M5 2. Continue [place] CR 450mg po qhs- adjust as needed 3. awaiting hematology consult re: chronic leukopenia with ANC 1000. recheck ANC on 02/10 1600. May need to follow up OP. 4. start risperidone 1mg po qhs- monitor ANC on 02/10 4. Obtain collateral information 5. Aftercare planning Greater than 50% of the session was spent on counseling and/or coordination of care Reason for contiued inpatient stay Substantial Risk for: inability to function and rapid decompensation
[2021-02-10] MEDS: Famotidine 20 MG TABLET PO ×2 (16:34→20:27)
[2021-02-10 17:58] VITALS: BP 123/67; PULSE 61; TEMP 36.6; O2SAT 100
[2021-02-10] MEDS: risperiDONE 1 MG TABLET PO (20:20)
[2021-02-10] MEDS: Lithium Carbonate 300 MG TABLET 450 MG PO (20:20)
[2021-02-11 06:00] VITALS: BP 104/54; PULSE 63; RESP 16; TEMP 36.4; O2SAT 99
[2021-02-11] MEDS: Famotidine 20 MG TABLET PO ×2 (08:21→20:40)
--- NOTE | 2021-02-11 10:22 | HO.PSYCHPN ---
Subjective Subjective Date of Service: 02/11/21 Reason For Visit: psychosis Subjective Notes: Conditional Voluntary Interim History: Pt reports sleeping through the night. Pt reports less need to pray, but does see messages in dreams which pt interprets God's messages. He is slightly less religiously preoccupied. He is less hyperverbal. Some religiosity noted. We discussed starting antipsychotic- follow closely ANC, slight improved since admission from 1000 to 1600. Pt mostly in room with bible. encouraged to attend groups. No behavioral concern. Review of Systems Constitutional: Reports as per HPI, Reports no additional constitutional complaints, Denies fatigue and Denies fever(s) Eyes: Denies no additional eye complaints Reports system reviewed and no additional complaints, except as documented Cardiovascular: Reports no additional cardiovascular complaints, Denies chest pain, Denies chest pain at rest, Denies chest pain with activity, Denies Epigastric Pain, Denies rapid heart rate, Denies irregular heart rhythm and Denies dyspnea Respiratory: Reports no additional respiratory complaints, Denies chest congestion, Denies cough and Denies dyspnea Gastrointestinal: Reports no additional gastrointestinal complaints, Denies constipation, Denies diarrhea and Denies vomiting Endocrine: Denies fatigue Mental Status Exam Mental Status Exam Narrative: Patient casually groomed cooperative 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 Thinking somewhat slowed but thoughtful asking how 1 develops bipolar disorder asking questions regarding lithium and regarding past head injuries. Alert cooperative mood anxious and somewhat blunted constricted not euphoric not grossly delusional no thoughts of harm to himself or others guarded regarding caodaism preoccupation he is accepting treatment Diagnostics Vital Signs (24Hr): Body Mass Index 27.7 Labs Results: 02/10/21 08:04 02/03/21 14:40 Medications Allergies Allergies Allergy/AdvReac Type Severity Reaction Status Date / Time No Known Allergies Allergy Verified 02/21/20 00:52 [No Known Allergies*] Assessment & Plan Assessment & Plan (1) Leucopenia: Status: Chronic Code(s): D72.819 - Decreased white blood cell count, unspecified Assessment and Plan: Mr. Agudelo is a 26 year-old male with hx of Bipolar Disorder who was brought to [facility] ED after called due to pt presenting increasingly more caodaism preoccupied, decreased need for sleep, bizarre behaviors, AH. He has been on olanzapine since last 07/2019 dose progressively decreased as pt reported not wanting to take it as he was tired. Note that pt has chronic leukopenia- appears prior to initiation of Olanzapine per report from his PCP with whom I spoke, Dr. Ashley Camarillo. No follow up work up re: leukopenia but do worry about olanzapine worsening it. Currently ANC 1000. We discussed starting lithium for mood stabilization- with benefit of increasing WBC. PLAN 1. Admit to M5 2. Continue [place] CR 450mg po qhs- adjust as needed 3. awaiting hematology consult re: chronic leukopenia with ANC 1000. recheck ANC on 02/10 1600. May need to follow up OP. 4. start risperidone 1mg po qhs- monitor ANC on 02/10 4. Obtain collateral information 5. Aftercare planning I spent minutes with the patient and/or on the patient floor today, greater than?50% of which was spent counseling/coordinating care. Reason for contiued inpatient stay Substantial Risk for: inability to function
--- NOTE | 2021-02-11 15:49 | P.CNHO_ITS ---
Subjective - Subjective Chief complaint: None reported Patient: new to practice Consult date: 02/11/21 Requesting Physician: Erin Short NP Primary Care Provider: Ashley Camarillo MD HPI - Consult Narrative Reason for consult: Chronic leukopenia Narrative: German Agudelo is a 26 year old male has been admitted to the psychiatric floor and found to have leukopenia. He does not recall being told of this in the past. He also states that he does not remember much. He does admit to history of excess alcohol use and smoking until a year ago. For the past year he has not drank any alcohol and does not do any illicit drugs. He denies any risk factors for HIV or hepatitis. No history of recurrent infectio ns. No constitutional symptoms such as fever, chills, night sweats or unexplained weight loss. He lives at home with his and 3 kids. He has not been working in the last year or 2. He denies any family history of hematological problems. His grandfather of some cancer in [place]. Review of Systems - Constitutional Reports as per HPI, Reports no additional constitutional complaints - Cardiovascular Reports no additional cardiovascular complaints - Respiratory Reports no additional respiratory complaints - Gastrointestinal Reports no additional gastrointestinal complaints Oncology Screenings - ECOG Performance Status ECOG Performance Status: 0 [facility] Medical History: Medical History (Last Reviewed 02/21/20 @ 01:07 by JERZY Vergara) Depression Surgical History: Surgical History (Last Reviewed 02/21/20 @ 01:07 by JERZY Vergara) No significant past surgical history Social History: Social History (Last Reviewed 02/21/20 @ 01:07 by JERZY Vergara) Living Situation History: Household Members: None Housing: Apartment Do you presently have visiting nurse or other home services: No Tobacco History: Patient Tobacco Use Status: Never used Tobacco Smoked in Last 30 Days: No e-Cigarette/Vaping Use: Never Used Patient Interested in Nicotine Replacement: No Patient Given Instructions on How to Stop Smoking: No Second Hand Smoke Exposure: No Substance Use History: Use of substances other than those prescribed or required for medical reasons : No Currently Displaying Signs/Symptoms of Drug Intoxication Withdrawal: No Domestic Abuse History: Have you been hit, kicked, punched, or otherwise hurt by someone within the past year? If so, by whom?: No Do you feel safe in your current relationship?: No Is there a partner from a previous relationship who is making you feel unsafe now?: No Are you made to feel afraid or neglected: No Advance Directives: Advance Directives: No Advance Directives Information Provided: No Guardian: No Homicidal Assessment: Do you have thoughts of harming others: None Do you have a plan to hurt others: No Plan Nutrition Assessment: Recently lost weight without trying: Unsure How much weight loss: Not applicable Eating poorly because of decreased appetite: No Nutrition screen score: 2 Nutrition Risks: No Nutritional Risk Poor oral hygiene: No Occupation Assessmet: service: No Sex/Gender Assessment: Sexual orientation: Straight/Heterosexual Home Medications and Allergies Current Medications: Current Medications Famotidine (Famotidine 20 Mg Tablet) 20 mg PO BID [facility] Last Admin: 02/11/21 08:21 Dose: 20 mg Documented by: [place] Carbonate ([place] Carbonate 300 Mg Tablet) 600 mg PO BEDTIME [facility] Magnesium Hydroxide (Milk Of Magnesia 30 Ml Oral.Susp) 30 ml PO DAILY PRN PRN Reason: Constipation Ondansetron HCl (Ondansetron Odt 4 Mg Tab.Rapdis) 4 mg TRANSLINGU Q8H PRN PRN Reason: Nausea Last Admin: 02/09/21 19:53 Dose: 4 mg Documented by: Pharmacy Consult (Consult Rx Perform Med Rec) 1 each MISCELLANE ONCE PRN PRN Reason: Consult order Risperidone (Risperidone 0.5 Mg Tablet) 1.5 mg PO BEDTIME [facility] Home Medications Medication Instructions Recorded Confirmed Type albuterol sulfate 90 mcg/actuation 2 puff PO Q4-6H PRN 02/04/21 02/04/21 History aerosol inhaler (ProAir HFA) cholecalciferol (vitamin D3) 50 1 cap PO DAILY 02/04/21 02/04/21 History mcg (2,000 unit) capsule olanzapine 2.5 mg tablet 1 tab PO DAILY 02/04/21 02/04/21 History trazodone 50 mg tablet 0.5 tab PO BID PRN 02/04/21 02/04/21 History Allergies Allergy/AdvReac Type Severity Reaction Status Date / Time No Known Allergies Allergy Verified 02/21/20 00:52 [No Known Allergies*] Physical Exam Vital signs: Vital Signs Temp 97.6 F 02/11/21 06:00 Pulse 63 02/11/21 06:00 Resp 16 02/11/21 06:00 BP 104/54 L 02/11/21 06:00 Pulse Ox 99 02/11/21 06:00 Weight 79.6 kg Hem/Onc Consult Result - Labs CBC & Chem 7: 02/10/21 08:04 02/03/21 14:40 Assessment and Plan Patient Active problem list reviewed?: Yes (1) Leucopenia Status: Chronic Assessment and plan: 1. This is a pleasant 26-year-old male with chronic leukopenia. He has had this at least since 2016. After being on olanzapine for several months starting in 2019, his WBC count declined further. There are no hematinic deficiencies. No underlying chronic liver disease or viral infections. HIV test negative. He probably has benign leukopenia related to ethnicity. He has no consti tutional symptoms and no prior history of recurrent infections. He has past history of alcoholism. Patient was advised to continue to abstain from alcohol as it can be myelosuppressive. No further hematological workup is necessary at this time. I will be happy to follow him along upon discharge. Thank you. - Time Spent With Patient Time Spent with Patient (in minutes): 20
[2021-02-11 16:42] VITALS: BP 110/66; PULSE 75; RESP 20; TEMP 36.9; O2SAT 97
[2021-02-11] MEDS: Lithium Carbonate 300 MG TABLET 600 MG PO (20:40)
[2021-02-11] MEDS: risperiDONE 0.5 MG TABLET 1.5 MG PO (20:40)
[2021-02-12 06:00] VITALS: BP 107/56; PULSE 68; RESP 16; TEMP 36.4; O2SAT 96
[2021-02-12 07:57] LABS: Hepatitis A Antibody IgM 0.54 Index (0-0.79); ~Hepatitis A Antibody IgM Nonreactive (Nonreactive)
[2021-02-12] MEDS: Famotidine 20 MG TABLET PO ×2 (08:24→20:27)
--- NOTE | 2021-02-12 10:25 | P.PNPSI_ITS ---
Subjective Subjective Date of Service: 02/12/21 Reason For Visit: psychosis Interim History: Pt reports sleeping through the night. Pt reports less need to pray, but does see messages in dreams which pt interprets God's messages. He is slightly less religiously preoccupied. He is less hyperverbal. Some religiosity noted. We discussed starting antipsychotic- follow closely ANC, slight improved since admission from 1000 to 1600. Pt mostly in room with bible. encouraged to attend groups. No behavioral concern. Review of Systems Constitutional: Reports as per HPI, Reports no additional constitutional complaints, Denies fatigue and Denies fever(s) Eyes: Denies no additional eye complaints Reports system reviewed and no additional complaints, except as documented Cardiovascular: Reports no additional cardiovascular complaints, Denies chest pain, Denies chest pain at rest, Denies chest pain with activity, Denies Epigastric Pain, Denies rapid heart rate, Denies irregular heart rhythm and Denies dyspnea Respiratory: Reports no additional respiratory complaints, Denies chest congestion, Denies cough and Denies dyspnea Gastrointestinal: Reports no additional gastrointestinal complaints, Denies constipation, Denies diarrhea and Denies vomiting Endocrine: Denies fatigue Mental Status Exam Mental Status Exam Narrative: Patient casually groomed cooperative 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 Thinking somewhat slowed but thoughtful asking how 1 develops bipolar disorder asking questions regarding lithium and regarding past head injuries. Alert cooperative mood anxious and somewhat blunted constricted not euphoric not grossly delusional no thoughts of harm to himself or others guarded regarding moravian preoccupation he is accepting treatment Diagnostics Vital Signs (24Hr): Body Mass Index 27.7 Labs Results: 02/10/21 08:04 02/03/21 14:40 Medications Allergies Allergies Allergy/AdvReac Type Severity Reaction Status Date / Time No Known Allergies Allergy Verified 02/21/20 00:52 [No Known Allergies*] Assessment & Plan Assessment & Plan (1) Leucopenia: Status: Chronic Code(s): D72.819 - Decreased white blood cell count, unspecified Assessment and Plan: Mr. Agudelo is a 26 year-old male with hx of Bipolar Disorder who was brought to [facility] after called due to pt presenting increasingly more moravian preoccupied, decreased need for sleep, bizarre behaviors, AH. He has been on olanzapine since last 07/2019 dose progressively decreased as pt reported not wanting to take it as he was tired. Note that pt has chronic leukopenia- appears prior to initiation of Olanzapine per report from his PCP with whom I spoke, Dr. Ashley Camarillo. No follow up work up re: leukopenia but do worry about olanzapine worsening it. Currently ANC 1000. We discussed starting lithium for mood stabilization- with benefit of increasing WBC. PLAN 1. Admit to M5 2. Continue [place] CR 450mg po qhs- adjust as needed 3. awaiting hematology consult re: chronic leukopenia with ANC 1000. recheck ANC on 02/10 1600. May need to follow up OP. 4. start risperidone 1mg po qhs- monitor ANC on 02/10 4. Obtain collateral information 5. Aftercare planning I spent minutes with the patient and/or on the patient floor today, greater than?50% of which was spent counseling/coordinating care. Reason for contiued inpatient stay Substantial Risk for: inability to function
[2021-02-12 18:00] VITALS: BP 131/71; PULSE 70; RESP 20; TEMP 36.4; O2SAT 98
[2021-02-12] MEDS: risperiDONE 0.5 MG TABLET 1.5 MG PO (20:27)
[2021-02-12] MEDS: Lithium Carbonate 300 MG TABLET 600 MG PO (20:27)
[2021-02-13 02:17] LABS: Copper, plasma 113 mcg/dL (70-175)
[2021-02-13 06:00] VITALS: BP 113/62; PULSE 63; RESP 16; TEMP 36.3; O2SAT 98
[2021-02-13 07:00] VITALS: BMI 27.7
[2021-02-13] MEDS: Famotidine 20 MG TABLET PO (08:27)
--- NOTE | 2021-02-13 15:26 | P.DS_ITS ---
DS: Providers Provider Date of Service: 02/13/21 Date of admission: 02/04/21 21:08 Primary care physician: Ashley Camarillo MD Consults: 02/07/21 19:07 Consult to Hematology / Oncology Routine Consulting Provider: Elodia Gan Reason for consultation: chronic leukopenia Has provider been notified: Yes DS: Diagnosis Discharge Diagnosis (1) Leucopenia: Status: Chronic DS: Medications Discharge Medications Home Medications: Home Medications Medication Instructions Recorded Confirmed albuterol sulfate 90 mcg/actuation 2 puff PO Q4-6H PRN 02/04/21 02/04/21 aerosol inhaler (ProAir HFA) cholecalciferol (vitamin D3) 50 1 cap PO DAILY 02/04/21 02/04/21 mcg (2,000 unit) capsule Previous Rx's Medication Instructions Recorded acetaminophen 500 mg tablet 1,000 mg PO QID PRN #20 tab 10/28/20 famotidine 20 mg tablet 20 mg PO BID #60 tab 02/13/21 lithium carbonate 600 mg capsule 600 mg PO BEDTIME #30 cap 02/13/21 risperidone 0.5 mg tablet 1.5 mg PO BEDTIME #90 tab 02/13/21 Mental Status Exam Mental Status Exam Narrative: Appearance: casually groomed, fair hygiene in NAD Behavior: cooperative psychomotor:no agitation or retardation noted Speech:clear, normal rate, regular tone, spontaneous Thought process:linear Thought content: some residual hyper religiosity but with improved insight, wanting to go home Mood: better Affect: congruent, non labile SI:none HI:none VH/AH:denies Delusions:much less sabianism delusions Insight/judgment:improving x 2. Memory/cog: alert, oriented x 3. DS: Summary Hospital Course Hospital Course: arrative: Mr. Agudelo is a 26 year-old male with hx of Bipolar Disorder type 1 who was brought to [facility] via EMS after called 911 reporting pt increasingly more sabianism, paranoia, not sleep, disorganized and acting in bizarre way. In the ED, his utox is negative. Pt has been previous on this unit last 07/2019 with similar presentation. On the unit, Mr. Agudelo presents as hyper sabianism. He reports feeling fearful about his children going out in part due to pandemic. He reports at times hearing voices of God. He also states that he has a mission that he has to acc omplish. He reports he is not praying enough. He reports racing thoughts and not able to finish things that he starts. He reports poor sleep- although reports does not need more sleep as he has to pray. He denies SI/HI. Pt does have some insight as to changes in his behaviors and need for treatment. He denies SI/HI. He reports he had stopped taking olanzapine as he was feeling too tired. Note that he has chronic leukopenia- unclear if worse with initiation of olanzapine. Past Psychiatric History: Inpatient: 07/2020 OP: currently PCP prescribing psych meds.? Past medication trials: olanzapine Medical Evaluation Reviewed: Yes chronic leukopenia- Per PCP signs of leukopenia back in 2016 but not follow up work up. Note that Olanzapine started on 2019. Progressively worse. HOSPITAL COURSE On the unit, Mr. Agudelo presented as hyperverbal, religiously preoccupied, decreased need to sleep. He was admitted on a CV and placed on 15 minutes checks for safety After discussing risks, benefits and alternative treatment options, pt agreed to start lithium, which he tolerated well. He was also started on risperidone for sabianism preoccupation. Pt has chronic leukopenia, on admission his ANC was 1000. He had hematology consult which basically recommended close monitoring but no signs of malignacy and probably benign variation given that pt denies frequent infections. His affect gradually presented as much less expansive and dysphoric. Pt sleep improved significantly. Pt presented as much less religiously preoccupied. He denied SI/HI. He agreed to continue OP psychiatric treatment. He presented with increase insight into symptoms and need for ongoing psychiatric treatment and medications. There were no incidences of disruptive behaviors nor use of restraints. His reported that pt appeared much less religiously preoccupied and denied any safety concerns at time of discharge. Status at Discharge Cognitive/behavioral status at discharge: Pt with much less sabianism preoccupations, improved sleep, less hyperberal. No SI/HI. Increase insight into psychiatric symptoms and need for OP psych Tx. No signs of aggression towards self or others. Functional status at discharge: independent ambulation Overall status at discharge: patient is progressing back to baseline Time Spent with Patient Time attestation: Total time spent providing and/or coordinating discharge services: Time spent: Greater than 30 minutes Discharge Plan Discharge Patient Disposition: Home, Self-Care Discharge Diagnosis: Bipolar Disorder type 1 Referrals: Apryl Agudelo (terapia) [Other] - 02/25/21 1:30 pm ([facility]) Dr. Alfredo (psiquiatr?a) [Other] - 03/03/21 3:30 pm ([facility]) Ashley Camarillo MD [Primary Care Provider] - 02/28/21 11:45 am (via phone) Discharge Medications: New lithium carbonate 600 mg capsule 600 mg PO BEDTIME Qty: 30 RF: 0 famotidine 20 mg Tablet 20 mg PO BID Qty: 60 RF: 0 risperidone 0.5 mg Tablet 1.5 mg PO BEDTIME Qty: 90 RF: 0 Continued acetaminophen 500 mg tablet 1,000 mg PO QID PRN (Reason: pain) Qty: 20 RF: 0 albuterol sulfate [ProAir HFA] 90 mcg/actuation HFA aerosol inhaler 2 puff PO Q4-6H PRN (Reason: Wheezing) RF: 0 cholecalciferol (vitamin D3) 50 mcg (2,000 unit) capsule 1 cap PO DAILY RF: 0 Discontinued trazodone 50 mg tablet 0.5 tab PO BID PRN (Reason: anxiety) RF: 0 olanzapine 2.5 mg tablet 1 tab PO DAILY RF: 0 Discharge Orders: Discharge Order (Routine); Ordered 02/13/21 Ordered By: Erin Short Diet: regular diet Activity on Discharge: As tolerated Stand Alone Forms: Patient Portal Discharge page, Community Support Care Plan Goals: 1. Maintain mood 2. No SI/HI 3. Improve sleep Health Concerns: Follow up with PCP Plan of Treatment: 1. Patrizia los medicamentos de acuerdo a las instrucciones 2. Ir a emergencias or llamar al 911 si walker condicion se empeora o en goyo de emergencia Assessment: Less religiously preoccupied, NO SI/HI. Improved sleep Discharge Date/Time: 02/13/21 12:58
== END 2021-02-13 12:58 | disposition home or self-care (01) | DRG 753 ==
LOC: HO.ED 02-04 11:23 → HO.PM5 02-04 21:12
PROVIDERS: Psychiatry & Neurology Psychiatry; Admitting Provider Psychiatry & Neurology Psychiatry; Emergency Provider Emergency Medicine; PCP Internal Medicine; Visit Provider Social Worker
DX: F31.12 Bipolar disorder, current episode manic without psychotic features, moderate (principal); D72.819 Decreased white blood cell count, unspecified; F10.21 Alcohol dependence, in remission; Z20.822 Contact with and (suspected) exposure to COVID-19; Z87.891 Personal history of nicotine dependence; Z23 Encounter for immunization; Z79.899 Other long term (current) drug therapy
CPT/HCPCS: 36415; 80053; 80061; 80178; 80307; 82077; 82525; 82607; 82746; 83036; 85007; 85025; 85027; 86704; 86706; 86709; 86803; 87340; 87389; 87635; 90686; 93005; 99285

== ENCOUNTER 2022-01-12 09:35 | Emergency (ER) | payer MEDICAID, SELFPAY ==
[2022-01-12 09:37] VITALS: PULSE 62; RESP 18; TEMP 36.6; O2SAT 98
== END 2022-01-12 13:17 | disposition left against medical advice (07) ==
PROVIDERS: Emergency Provider Emergency Medicine; PCP Internal Medicine
DX: S01.81XA Laceration without foreign body of other part of head, initial encounter (principal); W01.190A Fall on same level from slipping, tripping and stumbling with subsequent striking against furniture, initial encounter; Y93.9 Activity, unspecified; Y92.019 Unspecified place in single-family (private) house as the place of occurrence of the external cause; Y99.9 Unspecified external cause status
CPT/HCPCS: 99281

== ENCOUNTER 2022-01-27 12:50 | Outpatient (REF) | payer MEDICAID, SELFPAY ==
--- NOTE | ~2022-01-27 | XR_ITS ---
EXAMINATION: THORACIC AND LUMBAR SPINE. CLINICAL INFORMATION: Lumbago with sciatica COMPARISON: None TECHNIQUE: 3 views lumbar spine and 3 views thoracic spine. FINDINGS: THORACIC SPINE: There is normal thoracic kyphosis. The vertebral heights, alignment and disc heights are normal. No visible acute fracture, dislocation or subluxation seen. The prevertebral soft tissues are normal. Lumbar spine: There is normal lumbar lordosis. The vertebral heights, alignment and disc heights are normal. There is no visible acute fracture, dislocation or subluxation seen. No lytic or sclerotic process seen. XR/XR thoracic spine 3V IMPRESSION: Unremarkable dorsal spine exam. Unremarkable lumbar spine exam.
--- NOTE | ~2022-01-27 | XR_ITS ---
EXAMINATION: THORACIC AND LUMBAR SPINE. CLINICAL INFORMATION: Lumbago with sciatica COMPARISON: None TECHNIQUE: 3 views lumbar spine and 3 views thoracic spine. FINDINGS: THORACIC SPINE: There is normal thoracic kyphosis. The vertebral heights, alignment and disc heights are normal. No visible acute fracture, dislocation or subluxation seen. The prevertebral soft tissues are normal. Lumbar spine: There is normal lumbar lordosis. The vertebral heights, alignment and disc heights are normal. There is no visible acute fracture, dislocation or subluxation seen. No lytic or sclerotic process seen. XR/XR lumbar spine 2-3V IMPRESSION: Unremarkable dorsal spine exam. Unremarkable lumbar spine exam.
== END 2022-01-27 12:51 | disposition home or self-care (01) ==
LOC: HO.XRAY 12:50
PROVIDERS: Absent Provider Internal Medicine; PCP Internal Medicine; Visit Provider Student in an Organized Health Care Education/Training Program
DX: M54.42 Lumbago with sciatica, left side (principal)
CPT/HCPCS: 72072; 72100

== ENCOUNTER 2023-01-21 12:54 | Outpatient (REF) | payer MEDICAID, SELFPAY ==
[2023-01-21 16:26] LABS: Alanine Aminotransferase 10 U/L (0-40); Albumin Level 4.7 g/dL (3.5-5.0); Alkaline Phosphatase 76 U/L (39-117); Anion Gap 16 (12-20); Aspartate Amino Transferase 16 U/L (5-37); Bilirubin Total 0.7 mg/dL (0.0-1.0); Blood Urea Nitrogen 14 mg/dL (9-16); Calcium 9.5 mg/dL (8.4-10.2); Carbon Dioxide 23 mmol/L (22-29); Chloride 105 mmol/L (96-108); Estimated Glomerular Filt Rate > 60; Glucose Random 87 mg/dL (60-115); Sodium 140 mmol/L (135-145); Total Protein 8.1 g/dL (6.5-8.0)
[2023-01-21 16:31] LABS: TSH reflex Free T4 2.31 uIU/mL (0.32-4.0); Vitamin D 25-OH Total 68.3 ng/mL (>30)
[2023-01-22 03:15] LABS: Syphilis Screen Nonreactive (Nonreactive)
[2023-01-22 03:45] LABS: HBS Num1 > 1000.00 mIU/mL (0-7.99); HBsAGNum1 0.36 S/CO (0.00-0.99); Hepatitis A Antibody IgM 0.34 Index (0-0.79); Hepatitis B Core Antibody Nonreactive (Nonreactive); Hepatitis B Surface Antigen Negative (Negative); ~HepC Num1 0.06 S/CO (0.00-0.79); ~Hepatitis A Antibody IgM Nonreactive (Nonreactive); ~Hepatitis B Surface Antibody REACTIVE (Nonreactive); ~Hepatitis C Antibody Nonreactive (Nonreactive)
[2023-01-23 22:07] LABS: TS Negative Control Passed; TS Panel A 0; TS Panel B 0; TS Positive Control Passed; TSpotTB Negative (Negative)
[2023-01-25 18:08] LABS: Mumps Virus IgG Antibody >300.00 AU/mL
[2023-01-26 02:18] LABS: Rubella IgG Antibody 6.42 Index
== END 2023-01-21 12:55 | disposition home or self-care (01) ==
LOC: HO.HHCL 12:54
PROVIDERS: Visit Provider Internal Medicine
DX: Z11.1 Encounter for screening for respiratory tuberculosis (principal); F10.90 Alcohol use, unspecified, uncomplicated; F20.9 Schizophrenia, unspecified; R05.3 Chronic cough
CPT/HCPCS: 36415; 80053; 82306; 84443; 86481; 86704; 86706; 86709; 86735; 86762; 86765; 86780; 86803; 87340

== ENCOUNTER 2023-02-17 14:39 | Emergency (ER) | payer MEDICAID, SELFPAY ==
[2023-02-17 15:08] VITALS: BP 127/78; PULSE 79; RESP 18; TEMP 37.1; O2SAT 96; BMI 31.0
--- NOTE | 2023-02-17 15:14 | ED_ITS ---
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 Patient reports he was cutting hot dogs with a knife when his hand slipped causing him to cut his left hand 4th digit. Tetanus status is unknown. Patient reports he washed the area prior to arrival. He denies any associated weakness, numbness or tingling of the extremity Related Data Home Medications Medication Instructions Recorded Confirmed albuterol sulfate 90 mcg/actuation 2 puff PO Q4-6H PRN Wheezing 02/04/21 04/08/21 aerosol inhaler (ProAir HFA) cholecalciferol (vitamin D3) 50 1 cap PO DAILY 02/04/21 04/08/21 mcg (2,000 unit) capsule risperidone 1 mg tablet 1 mg PO DAILY 04/08/21 04/08/21 Previous Rx's Medication Instructions Recorded acetaminophen 500 mg tablet 1,000 mg (2 x 500 mg) PO QID PRN 10/28/20 pain #20 tabs famotidine 20 mg tablet 20 mg PO BID #60 tabs 02/13/21 lithium carbonate 600 mg capsule 600 mg PO BEDTIME #30 caps 02/13/21 risperidone 0.5 mg tablet 1.5 mg (3 x 0.5 mg) PO BEDTIME #90 02/13/21 tabs ibuprofen 600 mg tablet 600 mg PO Q8H PRN pain #30 tabs 02/17/23 Allergies Allergy/AdvReac Type Severity Reaction Status Date / Time No Known Allergies Allergy Verified 02/17/23 15:08 [No Known Allergies*] Review of Systems Review of Systems: Yes all other systems are reviewed and are negative Constitutional: Constitutional: Reports no additional constitutional complaints, Denies body ache(s), Denies chills, Denies fever(s), Denies headache(s) and Denies weakness Eyes: Eyes: Reports no additional eye complaints and Denies change in vision ENT: Reports system reviewed and no additional complaints, except as documented, Denies dizziness, Denies headache(s), Denies nasal congestion, Denies nasal discharge and Denies neck pain Cardiovascular: Cardiovascular: Reports no additional cardiovascular complaints, Denies chest pain, Denies leg edema and Denies dyspnea Respiratory: Respiratory: Reports no additional respiratory complaints, Denies cough and Denies dyspnea Gastrointestinal: Gastrointestinal: Reports no additional gastrointestinal complaints, Denies abdominal pain, Denies diarrhea, Denies nausea and Denies vomiting Genitourinary: Genitourinary: Denies urinary incontinence Musculoskeletal: Musculoskeletal: Reports no additional musculoskeletal complaints, Denies back pain, Denies arthralgias, Denies joint swelling, Denies neck pain, Denies numbness and Denies tingling Integumentary/Breasts: Skin/Breast: Reports system reviewed and no additional complaints, except as docu, Denies rash and Reports wounds Neurologic: Reports system reviewed and no additional complaints, except as documented, Denies Abnormal speech present, Denies dizziness, Denies headache(s), Denies numbness, Denies tingling and Denies weakness PMFSH Past Medical History Attestation statement: The following information was validated with the patient. Source: old records reviewed and nursing notes reviewed Medical History Psychotic depression Anxiety Decreased vision Overweight Depression Surgical History No significant past surgical history Social History Social History Household Members: None Housing: Apartment Do you presently have visiting nurse or other home services: No Patient Tobacco Use Status: Never used Tobacco e-Cigarette/Vaping Use: Never Used Second Hand Smoke Exposure: No Advance Directives: No Advance Directives Information Provided: No service: No Sexual orientation: Straight/Heterosexual Physical Exam Vital Signs: Vital Signs: Last Vital Signs Temp 98.7 F 02/17/23 15:08 Pulse 65 02/17/23 19:04 Resp 18 02/17/23 19:04 BP 143/83 H 02/17/23 19:04 Pulse Ox 100 02/17/23 19:04 O2 Del Method Room Air 02/17/23 19:04 BMI result Body Mass Index 31.0 Const: General: cooperative, healthy appearing, comfortable and no acute distress Orientation/consciousness: patient oriented x3 Limitations: no limitations HEENT: Head: Yes normal to inspection Ears: hearing grossly normal bilater ally General nose exam: Normal external nose present Face and sinus: Yes normal facial exam Mouth: Normal oral and palatal mucosa present Throat: Yes posterior oropharynx normal Eyes: General: appearance normal, both eyes and all related structures Pupils: Equal, round and reactive pupils present Neck: Neck: Yes normal visual inspection Chest: Chest palpation & inspection: normal inspection of the chest Resp: Effort & Inspection: normal respiratory effort Auscultation: clear to auscultation bilaterally Cardio: Rate: regular rate Rhythm: regular rhythm Peripheral pulses: Peripheral pulses 2+ throughout GI: Inspection: Yes normal to inspection Palpation (GI): Soft to palpation and nontender Auscultation: normal bowel sounds Back/Spine/Pelvis: Thoracic/Lumbar Spine: thoracic and lumbar spine normal to inspection Skin: General skin exam: no rashes or lesions noted Neuro: General: patient oriented x3, no focal motor deficits and normal sensation to monofilament Cranial nerves: Yes Equal, round and reactive pupils present Cognition (Neuro): normal cognition Speech: No Abnormal speech present Gait exam (Neuro): Normal gait present Motor exam (neuro): 5/5 motor strength present throughout Extrem: Other: To the left hand to the volar aspect of the left 4th digit there is a 3 cm laceration. Passive and active range of motion is intact. Normal sensation. Bleeding is controlled. General: Yes normal to inspection Course Course Course Narrative: RME: 28 yold male presetns to the ED for left ring finger laceration while cutting in the kitches. unknwon tdap Medications Administered Discontinued Medications Generic Name Dose Route Start Last Admin Trade Name Jose PRN Reason Stop Dose Admin Lidocaine HCl 2 ml 02/17/23 20:49 02/17/23 20:53 Lidocaine Hcl 1 % Mpf 2 Ml Vial INFILTRATI 02/17/23 20:50 2 ml ONCE ONE Administration Lidocaine HCl 2 ml 02/17/23 20:49 02/17/23 20:53 Lidocaine Hcl 1 % Mpf 2 Ml Vial INFILTRATI 02/17/23 20:50 2 ml ONCE ONE Administration Medical Decision Making Medical Decision Making [facility] Narrative: 28-year-old male previously healthy [id number] here with complaints of laceration to the left hand. Patient reports he was cutting hot dogs with a knife when his hand slipped causing him to cut his left hand 4th digit. Tetanus status is unknown. Patient reports he washed the area prior to arrival. He denies any associated weakness, numbness or tingling of the extremity To the left hand to the volar aspect of the left 4th digit there is a 3 cm laceration. Passive and active range of motion is intact. Normal sensation. Bleeding is controlled. Differential Diagnosis Differential Diagnoses: The differential diagnosis associated with the presentation includes Laceration Low concern for tendon injury with full range of motion. Low concern for bony abnormality or foreign body Tests considered The following testing was considered but not selected: No need for x-ray with low concern for bony abnormality Prescription Management I considered prescription management with: Antibiotic Procedures Laceration Laceration 1: Site: hand (4th digit ) Side (If applicable): left Size (cm): 3 Description: linear Depth: simple, single layer Local Anesthetic: lidocaine 1% Amount of anesthesia used (mL): 3 Pre-repair: wound explored, irrigated extensively (1 L NS w flush) and deep structures intact Skin layer closed with: vicryl Size (cm): 5-0 Number of sutures: 4 Technique: simple, interrupted Nerve Block Nerve Block 1: Time out performed: Yes Local Anesthetic: lidocaine 1% Amount of anesthesia used (mL): 4 Side: left Nerve Blocks: digital Procedure Successful: Yes Patient Tolerated Procedure: well Complications: none Discharge Plan Discharge Clinical Impression: Finger laceration Patient Disposition: Home, Self-Care Instructions: Laceration (ED) Additional Instructions: remove sutures in 7-10 days quitar las suturas en 7-10 d?as Prescriptions: New ibuprofen 600 mg tablet 600 mg PO Q8H PRN (Reason: pain) Qty: 30 0RF No Action acetaminophen 500 mg tablet 1,000 mg PO QID PRN (Reason: pain) Qty: 20 0RF albuterol sulfate [ProAir HFA] 90 mcg/actuation HFA aerosol inhaler 2 puff PO Q4-6H PRN (Reason: Wheezing) cholecalciferol (vitamin D3) 50 mcg (2,000 unit) capsule 1 cap PO DAILY lithium carbonate 600 mg capsule 600 mg PO BEDTIME Qty: 30 0RF famotidine 20 mg Tablet 20 mg PO BID Qty: 60 0RF risperidone 0.5 mg Tablet 1.5 mg PO BEDTIME Qty: 90 0RF risperidone 1 mg Tablet 1 mg PO DAILY Referrals: Ashley Camarillo MD [Primary Care Provider] - 1 week Discharge Date/Time: 02/17/23 22:35 Print Language: Turkish
[2023-02-17 19:04] VITALS: BP 143/83; PULSE 65; RESP 18; O2SAT 100
[2023-02-17] MEDS: Lidocaine HCl 1 % MPF 2 ML VIAL INFILTRATI ×2 (20:53)
== END 2023-02-17 22:35 | disposition home or self-care (01) ==
PROVIDERS: Emergency Provider Internal Medicine; PCP Internal Medicine
DX: S61.215A Laceration without foreign body of left ring finger without damage to nail, initial encounter (principal); W26.0XXA Contact with knife, initial encounter; Y93.G1 Activity, food preparation and clean up; Y92.009 Unspecified place in unspecified non-institutional (private) residence as the place of occurrence of the external cause; Y99.9 Unspecified external cause status
CPT/HCPCS: 12002; 99281; 99284

== ENCOUNTER 2023-06-11 | Outpatient (REF) | payer MEDICAID, SELFPAY ==
[2023-06-12 09:57] LABS: CT PCR NOT DETECTED (Not Detect.); NG PCR NOT DETECTED (Not Detect.)
== END 2023-06-11 00:01 | disposition home or self-care (01) ==
LOC: HO.HHCLNP
PROVIDERS: Visit Provider Student in an Organized Health Care Education/Training Program
DX: R30.0 Dysuria (principal)
CPT/HCPCS: 0353U

== ENCOUNTER 2023-09-10 15:20 | Outpatient (REF) | payer MEDICAID, SELFPAY ==
[2023-09-10 17:37] LABS: MANUAL DIFF FLAG NO
[2023-09-10 17:53] LABS: Eosinophils Absolute Auto 0.1 X10*3/uL (0.0-0.4); Eosinophils Percent Auto 2.3 % (0-4); Hematocrit 44.4 % (42.0-52.0); Hemoglobin 14.9 g/dl (14.0-18.0); Imm Gran Abs Auto 0.01 X10*3/uL (0.00-0.03); Imm Gran Pct Auto 0.3 % (0.0-0.4); Lymphocytes Absolute Auto 1.2 X10*3/uL (1.2-4.9); Lymphocytes Percent Auto 38.3 % (20-40); Mean Corpuscular HGB Conc 33.6 g/dl (31.0-36.0); Mean Corpuscular Hemoglobin 30.1 pg (27.0-33.0); Mean Corpuscular Volume 89.7 fL (80.0-98.0); Mean Platelet Volume 9.9 fL (9.4-12.4); Monocytes Absolute Auto 0.3 X10*3/uL (0.1-1.2); Neutrophils Absolute Auto 1.4 x10*3/uL (2.0-8.3); Neutrophils Percent Auto 47.1 % (45-73); Platelet Count 276 X10*3/uL (160-400); Red Blood Count 4.95 X10*6/uL (4.60-5.80); Red Cell Distribution Width 12.6 % (11.0-16.0)
[2023-09-10 20:53] LABS: Alanine Aminotransferase 22 U/L (0-40); Albumin Level 4.1 g/dL (3.5-5.0); Alkaline Phosphatase 64 U/L (39-117); Anion Gap 16 (12-20); Aspartate Amino Transferase 24 U/L (5-37); Bilirubin Total 0.5 mg/dL (0.0-1.0); Blood Urea Nitrogen 18 mg/dL (9-16); Calcium 8.9 mg/dL (8.4-10.2); Carbon Dioxide 25 mmol/L (22-29); Chloride 107 mmol/L (96-108); Estimated Glomerular Filt Rate > 60; Glucose Random 104 mg/dL (60-115); Potassium 4.7 mmol/L (3.3-5.1); Sodium 143 mmol/L (135-145); Total Protein 6.7 g/dL (6.5-8.0)
[2023-09-11 10:15] LABS: Syphilis Screen Nonreactive (Nonreactive)
[2023-09-11 10:21] LABS: HIV AB/AG Nonreactive (Nonreactive); HIV Num 1 0.04 S/CO (0.00-0.99); ~Hepatitis C Antibody Nonreactive (Nonreactive)
== END 2023-09-10 15:21 | disposition home or self-care (01) ==
LOC: HO.HHCL 15:20
PROVIDERS: Visit Provider Family Medicine
DX: F10.90 Alcohol use, unspecified, uncomplicated (principal)
CPT/HCPCS: 36415; 80053; 85025; 86780; 86803; 87389

== ENCOUNTER 2023-09-14 10:12 | Outpatient (REF) | payer MEDICAID, SELFPAY ==
[2023-09-17 08:08] LABS: TS Negative Control Passed; TS Panel A 0; TS Panel B 1; TS Positive Control Passed; TSpotTB Negative (Negative)
== END 2023-09-14 10:13 | disposition home or self-care (01) ==
LOC: HO.HHCL 10:12
PROVIDERS: Referring Provider Internal Medicine; Visit Provider Family Medicine
DX: R05.2 Subacute cough (principal); F10.90 Alcohol use, unspecified, uncomplicated
CPT/HCPCS: 36415; 86481

== ENCOUNTER 2023-10-14 13:20 | Emergency (ER) | payer MEDICAID, SELFPAY ==
--- NOTE | ~2023-10-14 | XR_ITS ---
EXAMINATION: XR CHEST CLINICAL INFORMATION: Cough COMPARISON: Chest x-ray June 08, 2019 TECHNIQUE: Frontal view of the chest was obtained. 2:37 PM FINDINGS: No significant abnormality is noted involving the heart, lungs, mediastinum, bony thorax or soft tissues. XR/XR chest 1V IMPRESSION: Unremarkable examination.
[2023-10-14 13:56] VITALS: BP 98/67; PULSE 70; RESP 16; TEMP 36.8; O2SAT 98; BMI 28.2
--- NOTE | 2023-10-14 13:56 | ED.GENADULT ---
HPI - General Adult General Chief complaint: Upper Respiratory Symptoms Stated complaint: Fever, diarrhea, body aches Time Seen by Provider: 10/14/23 15:09 Source: patient Mode of arrival: ambulatory Limitations: no limitations History of Present Illness ED Provider: Dr. Monica Dyer HPI narrative: Patient comes to the emergency room stating that last night he had a dream that he was inside a coffin lingering between life and . Patient states that he needs a 7 day work excuse to recover from this. Earlier today, when patient was triaged, patient complained of headache, cough, decreased p.o. intake. Patient reported to his nurse that he has syncopal episodes every single day for the last 7 years. However earlier in triage he reported syncope 7 times since the last weekend. When I spoke to the patient, he denied syncope, chest pain or shortness of breath. Patient denies SI or HI Related Data Home Medications ?Medication ?Instructions ?Recorded ?Confirmed albuterol sulfate 90 mcg/actuation 2 puff PO Q4-6H PRN Wheezing 02/04/21 04/08/21 aerosol inhaler (ProAir HFA) cholecalciferol (vitamin D3) 50 1 cap PO DAILY 02/04/21 04/08/21 mcg (2,000 unit) capsule risperidone 1 mg tablet 1 mg PO DAILY 04/08/21 04/08/21 Previous Rx's ?Medication ?Instructions ?Recorded acetaminophen 500 mg tablet 1,000 mg (2 x 500 mg) PO QID PRN 10/28/20 pain #20 tabs famotidine 20 mg tablet 20 mg PO BID #60 tabs 02/13/21 lithium carbonate 600 mg capsule 600 mg PO BEDTIME #30 caps 02/13/21 risperidone 0.5 mg tablet 1.5 mg (3 x 0.5 mg) PO BEDTIME #90 02/13/21 tabs ibuprofen 600 mg tablet 600 mg PO Q8H PRN pain #30 tabs 02/17/23 guaifenesin 200 mg tablet 200 mg PO TID PRN cough #10 tabs 10/14/23 Allergies Allergy/AdvReac Type Severity Reaction Status Date / Time No Known Allergies Allergy Verified 10/14/23 13:58 [No Known Allergies*] Review of Systems Review of Systems: Constitutional : No Weight loss, No Fever, No Chills, No Night Sweats, No Fatigue, No Malaise ENT/Mouth : No Hearing loss, No Ear Pain, No Nasal Congestion, No Sinus Pain, No Hoarseness, No sore throat, No Rhinorrhea, No Swallowing Difficulty Eyes: No Eye Pain, No Swelling, No Redness, No Foreign Body, No Discharge, No Vision Changes Cardiovascular : No Chest Pain, No SOB, No Dyspnea on Exertion, No Orthopnea, No Edema, No Palpitations Respiratory : No Cough, No Sputum, No Wheezing, No Smoke Exposure, No Dyspnea Gastrointestinal : No Nausea, No Vomiting, No Diarrhea, No Constipation, No abdominal Pain, No Hematochezia, No Melena Genitourinary : no irregular bleeding, No Dysuria, No Urinary Frequency, No Hematuria, No Urinary Incontinence, No Urgency, No Flank Pain, No Urinary Flow Changes, No Hesitancy Musculoskeletal : No joint pain, No Myalgias, No Joint Swelling Skin : No Skin Lesions, No rash Neuro : No Weakness, No Numbness, No Paresthesias, No Loss of Consciousness, No Dizziness, No Headache Psych : No Anxiety/Panic, No Depression, No SI/HI/AH/VH, No Social Issues. Patient concerned about his health secondary to a bad dream Heme/Lymph: No Bruising, No Bleeding,No Lymphadenopathy Endocrine : No Polyuria, No Polydipsia, No Temperature Intolerance PMFSH Past Medical History Medical History Psychotic depression Anxiety Decreased vision Overweight Depression Surgical History No significant past surgical history Social History Social History Household Members: None Housing: Apartment Do you presently have visiting nurse or other home services: No Patient Tobacco Use Status: Never used Tobacco e-Cigarette/Vaping Use: Never Used Second Hand Smoke Exposure: No Advance Directives: No Advance Directives Information Provided: Yes service: No Sexual orientation: Straight/Heterosexual Physical Exam ED Vital Signs: Vital Signs - 24 hr 10/14/23 13:56 Temperature 98.3 F Pulse Rate 70 Respiratory Rate 16 Blood Pressure 98/67 Pulse Oximetry 98 Oxygen Delivery Method Room Air BMI result Body Mass Index 28.2 Const Other: Appearance: Alert. Oriented X3. No acute distress. Eyes: Pupils equal, round and reactive to light. ENT: Pharynx normal. Neck: Normal inspection. Neck supple. No lymph nodes noted. No crepitus CVS: Normal heart rate and rhythm. Pulses normal. Normal S1 and S2 Respiratory: No respiratory distress. Breath sounds normal. No Wheezing. No rales Abdomen: Soft and nontender. No rigidity. No distention. Skin: Skin warm and dry. Normal skin color. Normal skin turgor. Extremities: No lower extremity edema. No Lacerations. No Rash Neuro: Oriented X 3. No motor deficit. No sensory deficit. Moving all extremities. No slurred speech. CN 2 through 12 grossly intact Psych: calm, cooperative, normal affect Course Course Course Narrative: This is a Rapid Medical Exam performed in triage by Sandrita Cobb PA-C. Full HPI, ROS and PE to be performed by primary ED provider. 28 year-old Wolof speaking M w/ PMHx depression, bipolar, PMHx presenting to the ED c/o fever, DUQUE, cough, diarrhea, nausea, decreased PO intake & multiple syncopal episodes over the past week. Also reports CP & SOB. Admits to hitting his head during falls. Admits visited [facility] 1 month ago. Feels like he is Allergic to everything & nauseous like I am PE: Had to be woken up on sofa in waiting room, ambulating with steady gait, dry cough appreciated, lungs CTA. Nontoxic appearing Plan: EKG, labs, UA, orthostatics, CXR, viral testing, Tessalon Perles Medical Decision Making Medical Decision Making [facility] Narrative: My interpretation of EKG: Normal sinus rhythm, heart rate 68, no ST segment depression or elevation, nonspecific T-wave inversion in lead 3, QTC 401 -my interpretation of labs, normal hematology and chemistry, negative troponin, negative COVID test -my interpretation of chest x-ray: No acute abnormality, no pneumonia no fracture ribs -I discussed the labs with the patient, no obvious abnormality. Patient instructed to follow-up with his primary care physician. -I offered to the patient a behavioral health consult, patient declined -discussed with the patient that at this time, a work note for 7 days is not indicated. -patient does not want to wait for the radiology report of his x-ray. Differential Diagnosis Differential Diagnoses: The differential diagnosis associated with the presentation includes (Viral URI, bipolar with horacio) Lab Data MDM Lab Attestation statement: I reviewed the patient's lab results. 10/14/23 14:22 10/14/23 14:23 Labs: Lab Results 10/14/23 10/14/23 Range/Units 14:22 14:23 WBC 6.3 (4.8-10.8) X10*3/uL RBC 4.86 (4.60-5.80) X10*6/uL Hgb 14.5 (14.0-18.0) g/dl Hct 41.7 L (42.0-52.0) % MCV 85.8 (80.0-98.0) fL MCH 29.8 (27.0-33.0) pg MCHC 34.8 (31.0-36.0) g/dl RDW 11.8 (11.0-16.0) % Plt Count 252 (160-400) X10*3/uL MPV 9.4 (9.4-12.4) fL Immature Gran % (Auto) 0.2 (0.0-0.4) % Neut % (Auto) 73.5 H (45-73) % Lymph % (Auto) 16.7 L (20-40) % [place] % (Auto) 9.2 (2-11) % Eos % (Auto) 0.2 (0-4) % Baso % (Auto) 0.2 (0-2) % Lymph # (Auto) 1.1 L (1.2-4.9) X10*3/uL [place] # (Auto) 0.6 (0.1-1.2) X10*3/uL Eos # (Auto) 0.0 (0.0-0.4) X10*3/uL Baso # (Auto) 0.0 (0.0-0.2) X10*3/uL Abs Immat Gran (auto) 0.01 (0.00-0.03) X10*3/uL Absolute Neuts (auto) 4.7 (2.0-8.3) x10*3/uL Absolute Nucleated RBC 0.000 (0.0-0.012) X10*3/uL Nucleated RBC % (auto) 0.0 (0.0-0.2) /100WBC PT 13.8 H (11.1-13.3) SEC INR 1.1 (0.9-1.1) Sodium 139 (135-145) mmol/L Potassium 4.3 (3.3-5.1) mmol/L Chloride 106 (96-108) mmol/L Carbon Dioxide 25 (22-29) mmol/L Anion Gap 12 (12-20) BUN 13 (9-16) mg/dL Creatinine 0.85 (0.5-1.4) mg/dL Estim Creat Clear Calc 130.0 Estimated GFR > 60 Random Glucose 89 (60-115) mg/dL Calcium 9.3 (8.4-10.2) mg/dL Magnesium 2.0 (1.6-2.6) mg/dL Total Bilirubin 0.9 (0.0-1.0) mg/dL Direct Bilirubin 0.3 (0.0-0.5) mg/dL AST 24 (5-37) U/L ALT 21 (0-40) U/L Alkaline Phosphatase 67 (39-117) U/L Troponin I High Sens < 2.7 (<3.5-35.0) ng/L Total Protein 7.2 (6.5-8.0) g/dL Albumin 4.1 (3.5-5.0) g/dL Urine Color Yellow Urine Appearance Clear Urine pH 7.5 (5.0-9.0) Ur Specific [place] 1.020 (1.005-1.025) Urine Protein Negative (Neg-Trace) mg/dL Urine Glucose (UA) Negative (Negative) mg/dL Urine Ketones Trace (Negative) mg/dL Urine Blood Negative (Negative) Urine Nitrite Negative (Negative) Ur Leukocyte Esterase Negative (Negative) Influenza Type A (PCR) NEGATIVE (Negative) Influenza Type B (PCR) NEGATIVE (Negative) RSV RNA Qual (PCR) NEGATIVE (Negative) SARS-CoV-2 RNA (RT-PCR) NEGATIVE (Negative) Discharge Plan Discharge Clinical Impression: Normal exam Patient Disposition: Home, Self-Care Instructions: Normal Exam (ED) Additional Instructions: Please follow-up with your primary care physician tomorrow. If you have any worsening or new symptoms, please return to the emergency room or call 911 Prescriptions: New guaifenesin 200 mg tablet 200 mg PO TID PRN (Reason: cough) Qty: 10 0RF No Action acetaminophen 500 mg tablet 1,000 mg PO QID PRN (Reason: pain) Qty: 20 0RF albuterol sulfate [ProAir HFA] 90 mcg/actuation HFA aerosol inhaler 2 puff PO Q4-6H PRN (Reason: Wheezing) cholecalciferol (vitamin D3) 50 mcg (2,000 unit) capsule 1 cap PO DAILY lithium carbonate 600 mg capsule 600 mg PO BEDTIME Qty: 30 0RF famotidine 20 mg Tablet 20 mg PO BID Qty: 60 0RF risperidone 0.5 mg Tablet 1.5 mg PO BEDTIME Qty: 90 0RF risperidone 1 mg Tablet 1 mg PO DAILY ibuprofen 600 mg tablet 600 mg PO Q8H PRN (Reason: pain) Qty: 30 0RF Print Language: Wolof
--- NOTE | 2023-10-14 13:57 | ECG_ITS ---
Test Reason : Syncope Blood Pressure : / mmHG Vent. Rate : 068 BPM Atrial Rate : 068 BPM P-R Int : 156 ms QRS Dur : 096 ms QT Int : 378 ms P-R-T Axes : 043 013 020 degrees QTc Int : 401 ms Normal sinus rhythm Normal ECG When compared with ECG of 04-FEB-2021 11:14, No significant change was found Referred By: Sandrita Cobb Electronically Signed By:Carlin Edward
[2023-10-14 14:31] LABS: MANUAL DIFF FLAG NO
[2023-10-14 14:32] LABS: Basophils Percent Auto 0.2 % (0-2); Eosinophils Percent Auto 0.2 % (0-4); Hematocrit 41.7 % (42.0-52.0); Hemoglobin 14.5 g/dl (14.0-18.0); Imm Gran Abs Auto 0.01 X10*3/uL (0.00-0.03); Imm Gran Pct Auto 0.2 % (0.0-0.4); Lymphocytes Absolute Auto 1.1 X10*3/uL (1.2-4.9); Lymphocytes Percent Auto 16.7 % (20-40); Mean Corpuscular HGB Conc 34.8 g/dl (31.0-36.0); Mean Corpuscular Hemoglobin 29.8 pg (27.0-33.0); Mean Corpuscular Volume 85.8 fL (80.0-98.0); Mean Platelet Volume 9.4 fL (9.4-12.4); Monocytes Absolute Auto 0.6 X10*3/uL (0.1-1.2); Monocytes Percent Auto 9.2 % (2-11); Neutrophils Absolute Auto 4.7 x10*3/uL (2.0-8.3); Neutrophils Percent Auto 73.5 % (45-73); Platelet Count 252 X10*3/uL (160-400); Red Blood Count 4.86 X10*6/uL (4.60-5.80); Red Cell Distribution Width 11.8 % (11.0-16.0); White Blood Count 6.3 X10*3/uL (4.8-10.8)
[2023-10-14 14:34] LABS: Appearance Urine Clear; Color Urine Yellow; Glucose Urine UA Negative (Negative); Leukocyte Esterase Urine Negative (Negative); Nitrite Urine Negative (Negative); PH 7.5 (5.0-9.0); Urine Blood Negative (Negative); Urine Ketones Trace mg/dL (Negative); Urine Protein Negative (Neg-Trace)
[2023-10-14 14:49] LABS: Alanine Aminotransferase 21 U/L (0-40); Albumin Level 4.1 g/dL (3.5-5.0); Alkaline Phosphatase 67 U/L (39-117); Anion Gap 12 (12-20); Aspartate Amino Transferase 24 U/L (5-37); Bilirubin Direct 0.3 mg/dL (0.0-0.5); Bilirubin Total 0.9 mg/dL (0.0-1.0); Blood Urea Nitrogen 13 mg/dL (9-16); Calcium 9.3 mg/dL (8.4-10.2); Carbon Dioxide 25 mmol/L (22-29); Chloride 106 mmol/L (96-108); Estimated Glomerular Filt Rate > 60; Glucose Random 89 mg/dL (60-115); Potassium 4.3 mmol/L (3.3-5.1); Sodium 139 mmol/L (135-145); Total Protein 7.2 g/dL (6.5-8.0)
[2023-10-14 14:52] LABS: INTERNATIONAL NORM RATIO 1.1 (0.9-1.1); Prothrombin Time 13.8 SEC (11.1-13.3)
[2023-10-14 15:00] LABS: Troponin-I High Sensitivity < 2.7 ng/L (<3.5-35.0)
[2023-10-14 15:12] LABS: Influenza A PCR NEGATIVE (Negative); Influenza B PCR NEGATIVE (Negative); Resp Syncy Virus RNA Qual PCR NEGATIVE (Negative); SARS COV2 PCR INHOUSE NEGATIVE (Negative)
[2023-10-14] MEDS: Benzonatate 100 MG CAPSULE PO (15:29)
[2023-10-14 15:44] VITALS: BP 100/74; PULSE 74; RESP 16; TEMP 36.7; O2SAT 95
== END 2023-10-14 15:45 | disposition home or self-care (01) ==
PROVIDERS: Physician Assistant; Emergency Provider Emergency Medicine; PCP Internal Medicine
DX: Z03.89 Encounter for observation for other suspected diseases and conditions ruled out (principal); R05.9 Cough, unspecified; Z03.818 Encounter for observation for suspected exposure to other biological agents ruled out
CPT/HCPCS: 0241U; 36415; 71045; 80048; 80076; 81003; 83735; 84484; 85025; 85610; 93005; 99283

== ENCOUNTER → 2023-10-14 13:57 | Outpatient (BNV) | payer MEDICAID, SELFPAY | PROVIDERS: Emergency Provider Emergency Medicine; PCP Internal Medicine; Visit Provider Internal Medicine Cardiovascular Disease | DX: R55 Syncope and collapse (principal) | CPT/HCPCS: 93010 ==

== ENCOUNTER 2023-10-16 19:02 | Emergency (ER) | payer MEDICAID, SELFPAY ==
[2023-10-16 19:09] VITALS: BP 000/00; BP 110/80; PULSE 0; PULSE 80; RESP 0; TEMP -17.7; TEMP 0; O2SAT 0; O2SAT 97; BMI 28.2
--- NOTE | 2023-10-16 19:18 | PC.NURSE ---
pt was seen by provider Dr. Herrera and then left without contin treatment. pt walked with a steady gait. security present during the ems arrival, pt was very upset he was brought to the hospital, interpret called and pt still upset and left on his own witnessed by staff and ok with dr Herrera. skin pink warm and alert and oriented.
--- NOTE | 2023-10-16 19:23 | ED.GENADULT ---
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 EMS states that he was calm and got on the ambulance for evaluation and then on arrival here to the emergency room patient reports that he does not want to stay has become very angry. He denies suicidal or homicidal ideation to me, adamantly informs me that he does not want to stay. Related Data Home Medications ?Medication ?Instructions ?Recorded ?Confirmed albuterol sulfate 90 mcg/actuation 2 puff PO Q4-6H PRN Wheezing 02/04/21 04/08/21 aerosol inhaler (ProAir HFA) cholecalciferol (vitamin D3) 50 1 cap PO DAILY 02/04/21 04/08/21 mcg (2,000 unit) capsule risperidone 1 mg tablet 1 mg PO DAILY 04/08/21 04/08/21 Previous Rx's ?Medication ?Instructions ?Recorded acetaminophen 500 mg tablet 1,000 mg (2 x 500 mg) PO QID PRN 10/28/20 pain #20 tabs famotidine 20 mg tablet 20 mg PO BID #60 tabs 02/13/21 lithium carbonate 600 mg capsule 600 mg PO BEDTIME #30 caps 02/13/21 risperidone 0.5 mg tablet 1.5 mg (3 x 0.5 mg) PO BEDTIME #90 02/13/21 tabs ibuprofen 600 mg tablet 600 mg PO Q8H PRN pain #30 tabs 02/17/23 guaifenesin 200 mg tablet 200 mg PO TID PRN cough #10 tabs 10/14/23 Allergies Allergy/AdvReac Type Severity Reaction Status Date / Time No Known Allergies Allergy Verified 10/14/23 13:58 [No Known Allergies*] Review of Systems Review of Systems: Pertinent positives and negatives as stated in HPI PMF Past Medical History Source: nursing notes reviewed Medical History Psychotic depression Anxiety Decreased vision Overweight Depression Surgical History No significant past surgical history Social History Social History Household Members: None Housing: Apartment Do you presently have visiting nurse or other home services: No Patient Tobacco Use Status: Never used Tobacco e-Cigarette/Vaping Use: Never Used Second Hand Smoke Exposure: No Advance Directives: No Advance Directives Information Provided: No service: No Sexual orientation: Straight/Heterosexual Physical Exam ED Vital Signs: Vital Signs - 24 hr 10/16/23 19:09 Temperature 0 F L Pulse Rate 0 L Respiratory Rate 0 L Blood Pressure 000/00 L Pulse Oximetry 0 L Oxygen Delivery Method Room Air BMI result Body Mass Index 28.2 VITAL SIGNS: Reviewed. GENERAL: Well developed, well nourished, in no acute distress. HEAD: Normocephalic/atraumatic EYES: PERRLA, EOMI EARS: Ext canals without abnormality NOSE: Nares patent bilateral OROPHARYNX: no oral lesions noted, posterior pharynx clear NECK: Supple LUNGS: No obvious respiratory distress or audible wheezing ABDOMEN: Soft, non-distended MUSCULOSKELETAL: No tenderness, deformities, or effusions noted on gross inspection. SKIN: Inspection of the skin reveals no rashes NEUROLOGIC: Alert and oriented x 4. Strength and sensation to light touch were grossly intact x 4. Medical Decision Making Medical Decision Making MDM Narrative: 28-year-old male who is noted to ambulate with a steady gait, is alert and oriented, asking to leave, appears to not have any physical ailments at this time and allowed to leave the property. Differential Diagnosis Differential Diagnoses: The differential diagnosis associated with the presentation includes Please see the discussion above Admission/Observation Consideration of admission/observation: Escalation of care including admission/observation considered Please see the discussion above Critical Care Time Critical Care Time Critical Care Time: Yes Total Critical Care Time: 30 Attestation: I personally attest to this time spent taking care of the patient. Discharge Plan Discharge Clinical Impression: Encounter for medical assessment Patient Disposition: Left W/O Completing Treatment Prescriptions: No Action acetaminophen 500 mg tablet 1,000 mg PO QID PRN (Reason: pain) Qty: 20 0RF albuterol sulfate [ProAir HFA] 90 mcg/actuation HFA aerosol inhaler 2 puff PO Q4-6H PRN (Reason: Wheezing) cholecalciferol (vitamin D3) 50 mcg (2,000 unit) capsule 1 cap PO DAILY lithium carbonate 600 mg capsule 600 mg PO BEDTIME Qty: 30 0RF famotidine 20 mg Tablet 20 mg PO BID Qty: 60 0RF risperidone 0.5 mg Tablet 1.5 mg PO BEDTIME Qty: 90 0RF risperidone 1 mg Tablet 1 mg PO DAILY ibuprofen 600 mg tablet 600 mg PO Q8H PRN (Reason: pain) Qty: 30 0RF guaifenesin 200 mg tablet 200 mg PO TID PRN (Reason: cough) Qty: 10 0RF Discharge Date/Time: 10/16/23 19:15
== END 2023-10-16 19:15 | disposition left against medical advice (07) ==
PROVIDERS: Emergency Provider Student in an Organized Health Care Education/Training Program
DX: Z03.89 Encounter for observation for other suspected diseases and conditions ruled out (principal); R41.82 Altered mental status, unspecified; F32.9 Major depressive disorder, single episode, unspecified
CPT/HCPCS: 99281

== ENCOUNTER 2023-10-19 10:45 | Inpatient (IN) | payer MEDICAID, OTHER, SELFPAY ==
[2023-10-19 11:05] VITALS: BP 159/81; PULSE 83; O2SAT 97
[2023-10-19 11:06] VITALS: BP 117/76; PULSE 84; RESP 20; TEMP 36.9; O2SAT 95; BMI 36.3
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
[2023-10-19] MEDS: LORazepam 1 MG TABLET 2 MG PO (11:20)
[2023-10-19] MEDS: OLANZapine ODT 10 MG TAB.RAPDIS TRANSLINGU (11:20)
[2023-10-19 12:43] VITALS: BP 117/76; PULSE 84; RESP 20; TEMP 36.9; O2SAT 95
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
--- NOTE | 2023-10-19 14:02 | MHC.CARE ---
Call from [facility] Co-response clinician, Mackenzie who provided information about patient. She stated that police had two separate calls about him yesterday--the first he was outside a restaurant talking to himself--officers told him to move along. The second call, a neighbor who called police and said that patient was outside screaming and that he just drove off in a car and he is not supposed to drive because of his medication. Known to [facility] through past outpatient services.
[2023-10-19 17:36] VITALS: RESP 16
--- NOTE | 2023-10-19 19:02 | PC.NURSE ---
patient appears to remain asleep at present respirations are even and unlabored patient appears in no distress.
--- NOTE | 2023-10-19 19:42 | PC.NURSE ---
patient appeared tired still and t/w asked how long its been for his medication, it appears its been weeks
--- NOTE | 2023-10-19 22:45 | MHC.EDTECH ---
t/w and CAMILA Gabriel C, asked pt 2x to provide urine and blood samples. pt simply replied with a hand up in a hold gesture and proceeded to use the bathroom without taking urine cup. when also asked about blood sample pt once again put hand up and closed room door. RN AWARE.
--- NOTE | 2023-10-20 | ECG_ITS ---
Test Reason : R/O QTC Blood Pressure : / mmHG Vent. Rate : 057 BPM Atrial Rate : 057 BPM P-R Int : 166 ms QRS Dur : 098 ms QT Int : 390 ms P-R-T Axes : 049 -09 018 degrees QTc Int : 379 ms Sinus bradycardia with sinus arrhythmia Early repolarization Otherwise normal ECG When compared with ECG of 14-OCT-2023 14:08, No significant change was found Referred By: Audra Landers Electronically Signed By:TE JOLLY MD
--- NOTE | 2023-10-20 01:37 | PC.NURSE ---
patient approached as client wandering arond unit during new arrival interview redirected but soon thereafter making vovalisations with certified nurse operating room made reports that he needed to practice his presentation hes going to the [facility] to see luis enrique carbone t/w presented same medicines for client and they were declined. will continue to monitor client for safety
[2023-10-20] MEDS: LORazepam 2 MG/ML VIAL IM (02:05)
[2023-10-20] MEDS: OLANZapine 10 MG VIAL IM (02:05)
--- NOTE | 2023-10-20 02:14 | PC.NURSE ---
client had been represented with same medications as earlier today and declined but client escalated behavior, throwing water on james in room. security was called and client began demanding addl water. client escalated wanting staff to hit him. patient stated we were all 'going to ' and all going to hell , demanded tallest staff to hit him. patient had gestured and lifted sleeve for t/w to administer medications at 205
[2023-10-20 05:02] VITALS: RESP 17
--- NOTE | 2023-10-20 06:59 | PC.NURSE ---
Care assumed of Pt. Pt is observed to be resting comfortably with eye closed on bed. (+) rise and fall of chest noted.
--- NOTE | 2023-10-20 07:21 | PC.NURSE ---
Patient exited room and ambulated to bathroom then nurses station, gesturing for this RN to come over to him. Patient requesting water, this RN provided patient with water but patient became defensive, demanding more water. More water was provided, patient then asked for ativan. This RN called MD Baez to request Ativan. Pt then requested this RN take his braces off, when told that we could not, pt appeared visibly angry, and then sighed. Patient ambulated back to room, threw cup of water at the wall, covered himself with a blanket and laid back down. Per MD Baez, patient is to be given IM sedation at 0800 with security and other staff present and then brought out to the ED so blood work and urine can be obtained. Security notified by this RN at 0720. aeronautical engineer Leonides on board with plan as well
[2023-10-20] MEDS: LORazepam 2 MG/ML VIAL 4 MG IM (08:15)
[2023-10-20] MEDS: Haloperidol Lactate 5 MG/ML VIAL 10 MG IM (08:16)
[2023-10-20 09:00] VITALS: PULSE 67; RESP 16; TEMP 36.2; O2SAT 97
[2023-10-20 09:01] LABS: MANUAL DIFF FLAG NO
[2023-10-20 09:02] LABS: Basophils Percent Auto 0.4 % (0-2); Eosinophils Percent Auto 1.4 % (0-4); Hematocrit 42.9 % (42.0-52.0); Hemoglobin 14.8 g/dl (14.0-18.0); Imm Gran Abs Auto 0.01 X10*3/uL (0.00-0.03); Imm Gran Pct Auto 0.4 % (0.0-0.4); Mean Corpuscular HGB Conc 34.5 g/dl (31.0-36.0); Mean Corpuscular Hemoglobin 29.7 pg (27.0-33.0); Mean Corpuscular Volume 86.1 fL (80.0-98.0); Mean Platelet Volume 8.8 fL (9.4-12.4); Monocytes Absolute Auto 0.3 X10*3/uL (0.1-1.2); Monocytes Percent Auto 10.7 % (2-11); Neutrophils Absolute Auto 1.5 x10*3/uL (2.0-8.3); Neutrophils Percent Auto 52.1 % (45-73); Platelet Count 313 X10*3/uL (160-400); Red Blood Count 4.98 X10*6/uL (4.60-5.80); Red Cell Distribution Width 11.6 % (11.0-16.0); White Blood Count 2.8 X10*3/uL (4.8-10.8)
--- NOTE | 2023-10-20 09:06 | PC.NURSE ---
pt given IM Ativan and Haldol to assist with obtaining labs. patient willingly took both IM injections. Patient spoke with JR from security and explained that he recently got braces and they hurt a lot so he has not eaten. Patient provided with eggs and oatmeal which he ate. Patient began getting sleepy, this RN went in to draw patients labs. patient initially a little bit resistive but labs were able to be obtained. will hold off on urine sample, no need to cath patient at this time as CARE Team has already made evaluation. Plan to obtain urine when patient is awake
[2023-10-20 09:18] LABS: Alanine Aminotransferase 17 U/L (0-40); Albumin Level 3.9 g/dL (3.5-5.0); Alkaline Phosphatase 66 U/L (39-117); Anion Gap 11 (12-20); Aspartate Amino Transferase 23 U/L (5-37); Blood Urea Nitrogen 13 mg/dL (9-16); Calcium 9.2 mg/dL (8.4-10.2); Carbon Dioxide 24 mmol/L (22-29); Chloride 106 mmol/L (96-108); Creatinine Clr Calc Pharmacy 134.2; Estimated Glomerular Filt Rate > 60; Ethanol < 10 mg/dL; Glucose Random 135 mg/dL (60-115); Potassium 3.9 mmol/L (3.3-5.1); Sodium 137 mmol/L (135-145)
[2023-10-20 15:39] VITALS: BP 141/78; PULSE 72; RESP 15; TEMP 36.7; O2SAT 100
[2023-10-20 16:41] VITALS: BMI 27.0
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
[2023-10-20 20:00] VITALS: BP 121/57; PULSE 65; RESP 16; TEMP 36.8; O2SAT 99
[2023-10-20 20:43] VITALS: BP 121/57
[2023-10-20] MEDS: Prazosin HCL 1 MG CAPSULE 2 MG PO (20:43)
[2023-10-20] MEDS: Famotidine 20 MG TABLET PO (20:43)
[2023-10-21] MEDS: OLANZapine 5 MG TABLET PO (08:12)
[2023-10-21] MEDS: Famotidine 20 MG TABLET PO ×2 (08:12→22:47)
[2023-10-21 09:00] VITALS: BP 129/76; PULSE 88; RESP 18; TEMP 36.4; O2SAT 99
[2023-10-21 09:49] LABS: Cholesterol 145 mg/dL (<200); HDL Cholesterol 43 mg/dL (>40); LDL Cholesterol Calculated 91 mg/dL (<100); Magnesium 1.8 mg/dL (1.6-2.6); Triglycerides 55 mg/dL (<150)
[2023-10-21 09:58] LABS: Estimated Average Glucose 111 mg/dL; Hemoglobin A1c % 5.5 % (<6.0)
[2023-10-21 10:06] LABS: Free T4 (Free Thyroxine) 1.03 ng/dL (0.71-1.85)
[2023-10-21 10:44] VITALS: BMI 27.0
[2023-10-21 11:33] LABS: Folate 7.7 ng/mL (> or = 4.0); Vitamin B12 1026 pg/mL (200-900)
[2023-10-21] MEDS: HaloperidoL 5 MG TABLET PO ×3 (12:13→22:47)
[2023-10-21] MEDS: hydrOXYzine HCL 25 MG TABLET PO (15:27)
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
[2023-10-21] MEDS: LORazepam 1 MG TABLET 2 MG PO (16:12)
[2023-10-21 19:10] VITALS: BP 96/50; PULSE 62; TEMP 36.4; O2SAT 100
[2023-10-21 22:40] VITALS: BP 126/67; PULSE 77
[2023-10-21] MEDS: Prazosin HCL 1 MG CAPSULE 2 MG PO (22:46)
[2023-10-21] MEDS: Divalproex Sodium ER 500 MG TAB.ER.24H PO (22:47)
[2023-10-22] MEDS: HaloperidoL 5 MG TABLET PO ×3 (06:08→12:32)
[2023-10-22 08:05] VITALS: BP 124/81; PULSE 77; RESP 16; TEMP 36.4; O2SAT 99
[2023-10-22] MEDS: Famotidine 20 MG TABLET PO (09:36)
[2023-10-22] MEDS: OLANZapine 5 MG TABLET PO ×2 (09:36→18:13)
--- NOTE | 2023-10-22 10:33 | P.PNPSI_ITS ---
Subjective Subjective Date of Service: 10/22/23 Reason For Visit: bipolar disorder Subjective Notes: 3 Day Healthcare Proxy: No Guardianship: No Medical Problems Affecting Mental Status: No Interim History: Three day notice to 10/26/23. Accepting medications Continues with psychotic sx, tangential at times, disorganized. Not engaged in milieu A serious situation given his threats to kill ex , children and his going to a school and telling them he was planning to kill people there prior to admission. Team report threatening to them once earlier this a.m. Accepted prn medication. Will continue to monitor. Team reports no legal charges from the incidents reported prior to admission. Medication Compliance: Yes Side effects from medications: No Attending Groups: No Review of Systems Acute medical concerns: No Review of Systems Review of Systems Yes all other systems are reviewed and are negative Mental Status Exam Mental Status Exam Patient Appearance: Disheveled Patient Orientation: Person and Place Level of Consciousness: Restless and Alert Patient Behavior: Guarded, Talkative, Hyperactive, Suspicious, Restless, Anxious, Distractible and Impulsive Mood Description: Constricted Affect Description: Constricted Patient Cognition Impaired: No Ability to Follow Directions: Fair Speech Pattern: Perseverating, Spontaneous Speech, Rambling and Rapid Memory Description: Remote Impaired Delusions: Paranoid Ideation, Grandiose and Present Perceptual Disturbances: Derealization Thought Process: Illogical and Distracted Thought Content: positive for Circumstantial, positive for Preoccupation, positive for Loose Associations, positive for Tangential, positive for Disorganized, positive for Suicidal Ideation and positive for Homicidal Ideation Depressive Symptoms: Insomnia, Difficulty Sleeping and Thoughts of /Suicide Abnormal Motor Activity Signs and Symptoms: Restlessness Judgement: Poor Diagnostics Vital Signs (24Hr): Vital Signs - 24 hr 10/21/23 19:10 10/21/23 22:40 10/22/23 08:05 Temperature 97.6 F 97.6 F Pulse Rate 62 77 77 Respiratory Rate 16 Blood Pressure 96/50 L 126/67 124/81 Pulse Oximetry 100 99 Oxygen Delivery Method Room Air Room Air BMI result Body Mass Index 27.0 Labs 10/20/23 08:47 10/20/23 08:47 Labs: Laboratory Results - last 48 hr 10/21/23 08:49 Estimat Average Glucose 111 Hemoglobin A1c % 5.5 Magnesium 1.8 Triglycerides 55 Cholesterol 145 LDL Cholesterol, Calc 91 HDL Cholesterol 43 Vitamin B12 1026 H Folate 7.7 TSH 1.80 Free T4 1.03 Medications Medications Current Medications Acetaminophen (Acetaminophen 325 Mg Tablet) 650 mg PO Q6H PRN PRN Reason: Headache/Pain Mild Scale (1-3) Al Hydroxide/Mg Hydroxide (Magnesium Hydrox/Alum Hydrox 30 Ml Oral.Susp) 30 ml PO Q6H PRN PRN Reason: Heartburn/Nausea Albuterol Sulfate (Albuterol Sulfate 90 Mcg 8 Gm Inhaler) 2 puff INHALE Q4H PRN PRN Reason: Wheezing Divalproex Sodium (Divalproex Sodium Er 500 Mg Tab.Er.24h) 500 mg PO BEDTIME [facility] Last Admin: 10/21/23 22:47 Dose: 500 mg Famotidine (Famotidine 20 Mg Tablet) 20 mg PO BID [facility] Last Admin: 10/22/23 09:36 Dose: 20 mg Haloperidol (Haloperidol 5 Mg Tablet) 5 mg PO BID [facility] Last Admin: 10/22/23 09:36 Dose: 5 mg Haloperidol (Haloperidol 5 Mg Tablet) 5 mg PO TID PRN PRN Reason: psychosis, agitation Last Admin: 10/22/23 06:08 Dose: 5 mg Hydroxyzine HCl (Hydroxyzine Hcl 25 Mg Tablet) 25 mg PO Q6H PRN PRN Reason: Anxiety Last Admin: 10/21/23 15:27 Dose: 25 mg Lorazepam (Lorazepam 1 Mg Tablet) 2 mg PO Q4H PRN PRN Reason: severe agitation Magnesium Hydroxide (Milk Of Magnesia 30 Ml Oral.Susp) 30 ml PO DAILY PRN PRN Reason: Constipation Nicotine (Nicotine 21 Mg Patch.Td24) 21 mg TRANSDERMA DAILY PRN PRN Reason: Nicotine Cravings Nicotine Polacrilex (Nicotine Polacrilex 2 Mg Gum) 4 mg BUCCAL Q2H PRN PRN Reason: Nicotine Cravings Olanzapine (Olanzapine 5 Mg Tablet) 5 mg PO DAILY [facility] Last Admin: 10/22/23 09:36 Dose: 5 mg Olanzapine (Olanzapine 5 Mg Tablet) 5 mg PO TID PRN PRN Reason: agitation Prazosin HCl (Prazosin Hcl 1 Mg Capsule) 2 mg PO BEDTIME [facility]; Protocol Last Admin: 10/21/23 22:46 Dose: 2 mg Trazodone HCl (Trazodone Hcl 50 Mg Tablet) 50 mg PO BEDTIME MRX1 PRN PRN Reason: Insomnia Allergies Allergies Allergy/AdvReac Type Severity Reaction Status Date / Time No Known Allergies Allergy Verified 10/19/23 11:16 [No Known Allergies*] Assessment & Plan Assessment & Plan (1) Acute psychosis: Status: Acute Code(s): F23 - Brief psychotic disorder (2) Bipolar 1 disorder with moderate horacio: Status: Acute Code(s): F31.12 - Bipolar disorder, current episode manic without psychotic features, moderate Plan 28 yo ang[place] male, prydeinig speaking, with acute psychosis, bipolar disorder. Pt is reported to have gone to the [employer], made a gun gesture with his hands, asked for childrens names and stated, I todd, I kill. He is religiously preoccupied, telling CARE he is God and threatening to kill his ex , their three children and himself. Plan: Admit, CV, 15 minute checks Collateral contact Three day notice filed, plan to file Section 7. Depakote ER 500 mg HS Haldol 5 mg bid Haldol 5 mg tid prn Prepare for Haldol Decanoate injection if po Haldol is tolerated Lorazepam 2 mg q 4 hours prn Olanzapine 5 mg daily Olanzapine 5 mg tid prn Prazosin 2 mg hs Trazodone 50 mg hs prn, MR x1 10/21- Continue current tx Reason for continued inpatient stay Substantial Risk for: rapid decompensation Time Spent With Patient Time: Total time managing care of this patient today ____ minutes.
[2023-10-22] MEDS: LORazepam 1 MG TABLET 2 MG PO (12:32)
[2023-10-22] MEDS: hydrOXYzine HCL 25 MG TABLET PO (18:13)
[2023-10-23] MEDS: LORazepam 1 MG TABLET 2 MG PO (06:06)
[2023-10-23] MEDS: HaloperidoL 5 MG TABLET PO ×4 (06:07→21:04)
[2023-10-23] MEDS: OLANZapine 5 MG TABLET PO ×2 (06:07→09:13)
[2023-10-23 08:00] VITALS: BP 101/59; PULSE 69; RESP 16; TEMP 36.4; O2SAT 99
[2023-10-23] MEDS: Famotidine 20 MG TABLET PO ×2 (09:13→21:03)
--- NOTE | 2023-10-23 10:09 | HO.PSYCHPN ---
Subjective Subjective Date of Service: 10/23/23 Reason For Visit: bipolar disorder Interim History: Three day notice to 10/26/23. Accepting medications Seen with spanish interpreter/translator. Reports feeling much improved since admission and thankful for the help he is getting. Says sleep has improved. Voices are gone (he is observed in the milieu and his room responding to internal stimuli and self dialoguing) He presents with some grandiosity. Accepted prn medication. Review of Systems Review of Systems ROS unable to be obtained due to poor historian and not making sense Yes all other systems are reviewed and are negative and Unobtainable due to mental status Mental Status Exam Mental Status Exam Patient Appearance: Disheveled Patient Orientation: Person and Place Level of Consciousness: Restless and Alert Patient Behavior: Guarded, Talkative, Hyperactive, Suspicious, Restless, Anxious, Distractible and Impulsive Mood Description: Constricted Affect Description: Constricted Patient Cognition Impaired: No Ability to Follow Directions: Fair Speech Pattern: Perseverating, Spontaneous Speech, Rambling and Rapid Memory Description: Remote Impaired Diagnostics Vital Signs (24Hr): Vital Signs - 24 hr 10/23/23 08:00 Temperature 97.6 F Pulse Rate 69 Respiratory Rate 16 Blood Pressure 101/59 L Pulse Oximetry 99 Oxygen Delivery Method Room Air BMI result Body Mass Index 27.0 Labs 10/20/23 08:47 10/20/23 08:47 Labs: Laboratory Results - last 48 hr 10/21/23 08:49 Vitamin B12 1026 H Folate 7.7 Medications Medications Current Medications Acetaminophen (Acetaminophen 325 Mg Tablet) 650 mg PO Q6H PRN PRN Reason: Headache/Pain Mild Scale (1-3) Al Hydroxide/Mg Hydroxide (Magnesium Hydrox/Alum Hydrox 30 Ml Oral.Susp) 30 ml PO Q6H PRN PRN Reason: Heartburn/Nausea Albuterol Sulfate (Albuterol Sulfate 90 Mcg 8 Gm Inhaler) 2 puff INHALE Q4H PRN PRN Reason: Wheezing Divalproex Sodium (Divalproex Sodium Er 500 Mg Tab.Er.24h) 500 mg PO BEDTIME REPLACED BY [facility] Last Admin: 10/22/23 23:56 Dose: Not Given Famotidine (Famotidine 20 Mg Tablet) 20 mg PO BID [facility]PL[facility] Last Admin: 10/23/23 09:13 Dose: 20 mg Haloperidol (Haloperidol 5 Mg Tablet) 5 mg PO BID [facility] Last Admin: 10/23/23 09:13 Dose: 5 mg Haloperidol (Haloperidol 5 Mg Tablet) 5 mg PO TID PRN PRN Reason: psychosis, agitation Last Admin: 10/23/23 06:07 Dose: 5 mg Hydroxyzine HCl (Hydroxyzine Hcl 25 Mg Tablet) 25 mg PO Q6H PRN PRN Reason: Anxiety Last Admin: 10/22/23 18:13 Dose: 25 mg Lorazepam (Lorazepam 1 Mg Tablet) 2 mg PO Q4H PRN PRN Reason: severe agitation Last Admin: 10/23/23 06:06 Dose: 2 mg Magnesium Hydroxide (Milk Of Magnesia 30 Ml Oral.Susp) 30 ml PO DAILY PRN PRN Reason: Constipation Nicotine (Nicotine 21 Mg Patch.Td24) 21 mg TRANSDERMA DAILY PRN PRN Reason: Nicotine Cravings Nicotine Polacrilex (Nicotine Polacrilex 2 Mg Gum) 4 mg BUCCAL Q2H PRN PRN Reason: Nicotine Cravings Olanzapine (Olanzapine 5 Mg Tablet) 5 mg PO DAILY REPLACED [facility] Last Admin: 10/23/23 09:13 Dose: 5 mg Olanzapine (Olanzapine 5 Mg Tablet) 5 mg PO TID PRN PRN Reason: agitation Last Admin: 10/23/23 06:07 Dose: 5 mg Prazosin HCl (Prazosin Hcl 1 Mg Capsule) 2 mg PO BEDTIME [facility]; Protocol Last Admin: 10/22/23 23:57 Dose: Not Given Trazodone HCl (Trazodone Hcl 50 Mg Tablet) 50 mg PO BEDTIME MRX1 PRN PRN Reason: Insomnia Allergies Allergies Allergy/AdvReac Type Severity Reaction Status Date / Time No Known Allergies Allergy Verified 10/19/23 11:16 [No Known Allergies*] Assessment & Plan Assessment & Plan (1) Acute psychosis: Status: Acute Code(s): F23 - Brief psychotic disorder (2) Bipolar 1 disorder with moderate horacio: Status: Acute Code(s): F31.12 - Bipolar disorder, current episode manic without psychotic features, moderate Plan 28 yo [place] male, australian speaking, with acute psychosis, bipolar disorder. Pt is reported to have gone to the [employer], made a gun gesture with his hands, asked for childrens names and stated, I todd, I kill. He is religiously preoccupied, telling CARE he is God and threatening to kill his ex , their three children and himself. Plan: Admit, CV, 15 minute checks Collateral contact Three day notice filed, plan to file Section 7. Depakote ER 500 mg HS Haldol 5 mg bid Haldol 5 mg tid prn Prepare for Haldol Decanoate injection if po Haldol is tolerated Lorazepam 2 mg q 4 hours prn Olanzapine 5 mg daily Olanzapine 5 mg tid prn Prazosin 2 mg hs Trazodone 50 mg hs prn, MR x1 10/21- Continue current tx 10/22: continue current management and treatment plan. Reason for continued inpatient stay Substantial Risk for: harm to self, harm to others, inability to function and rapid decompensation Time Spent With Patient Time: Total time managing care of this patient today ____ minutes.
[2023-10-23 20:00] VITALS: BP 127/70; PULSE 82; RESP 17; TEMP 36.4; O2SAT 99
[2023-10-23] MEDS: Divalproex Sodium ER 500 MG TAB.ER.24H PO (21:03)
[2023-10-23] MEDS: traZODone HCL 50 MG TABLET PO (21:03)
[2023-10-23] MEDS: Prazosin HCL 1 MG CAPSULE 2 MG PO (21:04)
[2023-10-24 08:24] VITALS: BP 137/82; PULSE 83; RESP 18; TEMP 36.4; O2SAT 98
[2023-10-24] MEDS: Famotidine 20 MG TABLET PO ×2 (08:27→20:30)
[2023-10-24] MEDS: HaloperidoL 5 MG TABLET PO ×3 (08:27→20:30)
[2023-10-24] MEDS: OLANZapine 5 MG TABLET PO (08:27)
--- NOTE | 2023-10-24 17:16 | P.PNPSI_ITS ---
Subjective Subjective Date of Service: 10/24/23 Reason For Visit: bipolar disorder Interim History: Seen with care provider. Three day notice to 10/26/23. I'm loving life . Somewhat disinhibited (going into another patient's bathroom but redirectable and apologetic) Accepting medications Continues to report he is feeling much improved since admission and thankful for the help he is getting. Says sleep has improved. Voices are gone (he is observed in the milieu and his room responding to internal stimuli and self dialoguing) He presents with some grandiosity. Accepted prn medication. Denies SI/HI. Review of Systems Review of Systems ROS unable to be obtained due to poor historian and not making sense Yes all other systems are reviewed and are negative and Unobtainable due to mental status Mental Status Exam Mental Status Exam Patient Appearance: Disheveled Patient Orientation: Person and Place Level of Consciousness: Restless and Alert Patient Behavior: Guarded, Talkative, Hyperactive, Suspicious, Restless, Anxious, Distractible and Impulsive Mood Description: Constricted Affect Description: Constricted Patient Cognition Impaired: No Ability to Follow Directions: Fair Speech Pattern: Perseverating, Spontaneous Speech, Rambling and Rapid Memory Description: Remote Impaired Diagnostics Vital Signs (24Hr): Vital Signs - 24 hr 10/23/23 20:00 10/24/23 08:24 Temperature 97.6 F 97.6 F Pulse Rate 82 83 Respiratory Rate 17 18 Blood Pressure 127/70 137/82 Pulse Oximetry 99 98 Oxygen Delivery Method Room Air Room Air BMI result Body Mass Index 27.0 Labs 10/20/23 08:47 10/20/23 08:47 Medications Medications Current Medications Acetaminophen (Acetaminophen 325 Mg Tablet) 650 mg PO Q6H PRN PRN Reason: Headache/Pain Mild Scale (1-3) Al Hydroxide/Mg Hydroxide (Magnesium Hydrox/Alum Hydrox 30 Ml Oral.Susp) 30 ml PO Q6H PRN PRN Reason: Heartburn/Nausea Albuterol Sulfate (Albuterol Sulfate 90 Mcg 8 Gm Inhaler) 2 puff INHALE Q4H PRN PRN Reason: Wheezing Divalproex Sodium (Divalproex Sodium Er 500 Mg Tab.Er.24h) 500 mg PO BEDTIME [facility] Last Admin: 10/23/23 21:03 Dose: 500 mg Famotidine (Famotidine 20 Mg Tablet) 20 mg PO BID [facility] Last Admin: 10/24/23 08:27 Dose: 20 mg Haloperidol (Haloperidol 5 Mg Tablet) 5 mg PO BID [facility] Last Admin: 10/24/23 08:27 Dose: 5 mg Haloperidol (Haloperidol 5 Mg Tablet) 5 mg PO TID PRN PRN Reason: psychosis, agitation Last Admin: 10/24/23 15:07 Dose: 5 mg Hydroxyzine HCl (Hydroxyzine Hcl 25 Mg Tablet) 25 mg PO Q6H PRN PRN Reason: Anxiety Last Admin: 10/22/23 18:13 Dose: 25 mg Lorazepam (Lorazepam 1 Mg Tablet) 2 mg PO Q4H PRN PRN Reason: severe agitation Last Admin: 10/23/23 06:06 Dose: 2 mg Magnesium Hydroxide (Milk Of Magnesia 30 Ml Oral.Susp) 30 ml PO DAILY PRN PRN Reason: Constipation Nicotine (Nicotine 21 Mg Patch.Td24) 21 mg TRANSDERMA DAILY PRN PRN Reason: Nicotine Cravings Nicotine Polacrilex (Nicotine Polacrilex 2 Mg Gum) 4 mg BUCCAL Q2H PRN PRN Reason: Nicotine Cravings Olanzapine (Olanzapine 5 Mg Tablet) 5 mg PO DAILY [facility] Last Admin: 10/24/23 08:27 Dose: 5 mg Olanzapine (Olanzapine 5 Mg Tablet) 5 mg PO TID PRN PRN Reason: agitation Last Admin: 10/23/23 06:07 Dose: 5 mg Prazosin HCl (Prazosin Hcl 1 Mg Capsule) 2 mg PO BEDTIME [facility]; Protocol Last Admin: 10/23/23 21:04 Dose: 2 mg Trazodone HCl (Trazodone Hcl 50 Mg Tablet) 50 mg PO BEDTIME MRX1 PRN PRN Reason: Insomnia Last Admin: 10/23/23 21:03 Dose: 50 mg Allergies Allergies Allergy/AdvReac Type Severity Reaction Status Date / Time No Known Allergies Allergy Verified 10/19/23 11:16 [No Known Allergies*] Assessment & Plan Assessment & Plan (1) Acute psychosis: Status: Acute Code(s): F23 - Brief psychotic disorder (2) Bipolar 1 disorder with moderate horacio: Status: Acute Code(s): F31.12 - Bipolar disorder, current episode manic without psychotic features, moderate Plan 28 yo [place] citizen male, slovenian speaking, with acute psychosis, bipolar disorder. Pt is reported to have gone to the [employer], made a gun gesture with his hands, asked for childrens names and stated, I todd, I kill. He is religiously preoccupied, telling CARE he is God and threatening to kill his ex , their three children and himself. Plan: Admit, CV, 15 minute checks Collateral contact Three day notice filed, plan to file Section 7. Depakote ER 500 mg HS Haldol 5 mg bid Haldol 5 mg tid prn Prepare for Haldol Decanoate injection if po Haldol is tolerated Lorazepam 2 mg q 4 hours prn Olanzapine 5 mg daily Olanzapine 5 mg tid prn Prazosin 2 mg hs Trazodone 50 mg hs prn, MR x1 10/21- Continue current tx 10/22: continue current management and treatment plan. 10/23: continue current management and treatment plan. Reason for continued inpatient stay Substantial Risk for: harm to others, inability to function and rapid decompensation Time Spent With Patient Time: Total time managing care of this patient today ____ minutes.
[2023-10-24] MEDS: hydrOXYzine HCL 25 MG TABLET PO (17:19)
[2023-10-24 20:00] VITALS: BP 133/87; PULSE 96; RESP 18; TEMP 36.6; O2SAT 97
[2023-10-24] MEDS: Prazosin HCL 1 MG CAPSULE 2 MG PO (20:30)
[2023-10-24] MEDS: Divalproex Sodium ER 500 MG TAB.ER.24H PO (20:30)
[2023-10-24] MEDS: LORazepam 1 MG TABLET 2 MG PO (20:30)
[2023-10-24] MEDS: traZODone HCL 50 MG TABLET PO (20:30)
[2023-10-25 08:26] VITALS: BP 131/82; PULSE 88; RESP 16; TEMP 36.9; O2SAT 98
[2023-10-25] MEDS: HaloperidoL 5 MG TABLET PO (09:19)
[2023-10-25] MEDS: OLANZapine 5 MG TABLET PO (09:19)
[2023-10-25] MEDS: Famotidine 20 MG TABLET PO ×2 (09:19→21:02)
[2023-10-25] MEDS: hydrOXYzine HCL 25 MG TABLET PO (13:25)
--- NOTE | 2023-10-25 16:27 | HO.PSYCHPN ---
Subjective Subjective Date of Service: 10/25/23 Reason For Visit: bipolar disorder Subjective Notes: Section 7 and 3 Day (10/25/23) Healthcare Proxy: No Guardianship: No Medical Problems Affecting Mental Status: No Interim History: Three day notice today. Section 7 filed. Discussed with pt and team Cooperative with discussion. Reports feeling some relief of sx. Tolerating medications and titration. Self-dialogueing in milieu, chanting at times, repetitive praying Medication Compliance: Yes Side effects from medications: No Attending Groups: No Review of Systems Acute medical concerns: No Medical Review of Systems: unchanged Review of Systems Review of Systems Yes all other systems are reviewed and are negative Mental Status Exam Mental Status Exam Patient Appearance: Disheveled Patient Orientation: Person and Place Level of Consciousness: Restless and Alert Patient Behavior: Guarded, Talkative, Hyperactive, Suspicious, Restless, Anxious, Distractible and Impulsive Mood Description: Constricted Affect Description: Constricted Patient Cognition Impaired: No Ability to Follow Directions: Fair Speech Pattern: Perseverating, Spontaneous Speech, Rambling and Rapid Memory Description: Remote Impaired Diagnostics Vital Signs (24Hr): Vital Signs - 24 hr 10/24/23 20:00 10/25/23 08:26 Temperature 97.8 F 98.5 F Pulse Rate 96 88 Respiratory Rate 18 16 Blood Pressure 133/87 131/82 Pulse Oximetry 97 98 Oxygen Delivery Method Room Air Room Air BMI result Body Mass Index 27.0 Labs 10/20/23 08:47 10/20/23 08:47 Medications Medications Current Medications Acetaminophen (Acetaminophen 325 Mg Tablet) 650 mg PO Q6H PRN PRN Reason: Headache/Pain Mild Scale (1-3) Al Hydroxide/Mg Hydroxide (Magnesium Hydrox/Alum Hydrox 30 Ml Oral.Susp) 30 ml PO Q6H PRN PRN Reason: Heartburn/Nausea Albuterol Sulfate (Albuterol Sulfate 90 Mcg 8 Gm Inhaler) 2 puff INHALE Q4H PRN PRN Reason: Wheezing Divalproex Sodium (Divalproex Sodium Er 500 Mg Tab.Er.24h) 500 mg PO BEDTIME [facility] Last Admin: 10/24/23 20:30 Dose: 500 mg Famotidine (Famotidine 20 Mg Tablet) 20 mg PO BID [facility] Last Admin: 10/25/23 09:19 Dose: 20 mg Haloperidol (Haloperidol 5 Mg Tablet) 5 mg PO BID [facility] Last Admin: 10/25/23 09:19 Dose: 5 mg Haloperidol (Haloperidol 5 Mg Tablet) 5 mg PO TID PRN PRN Reason: psychosis, agitation Last Admin: 10/24/23 15:07 Dose: 5 mg Hydroxyzine HCl (Hydroxyzine Hcl 25 Mg Tablet) 25 mg PO Q6H PRN PRN Reason: Anxiety Last Admin: 10/25/23 13:25 Dose: 25 mg Lorazepam (Lorazepam 1 Mg Tablet) 2 mg PO Q4H PRN PRN Reason: severe agitation Last Admin: 10/24/23 20:30 Dose: 2 mg Magnesium Hydroxide (Milk Of Magnesia 30 Ml Oral.Susp) 30 ml PO DAILY PRN PRN Reason: Constipation Nicotine (Nicotine 21 Mg Patch.Td24) 21 mg TRANSDERMA DAILY PRN PRN Reason: Nicotine Cravings Nicotine Polacrilex (Nicotine Polacrilex 2 Mg Gum) 4 mg BUCCAL Q2H PRN PRN Reason: Nicotine Cravings Olanzapine (Olanzapine 5 Mg Tablet) 5 mg PO DAILY [facility] Last Admin: 10/25/23 09:19 Dose: 5 mg Olanzapine (Olanzapine 5 Mg Tablet) 5 mg PO TID PRN PRN Reason: agitation Last Admin: 10/23/23 06:07 Dose: 5 mg Prazosin HCl (Prazosin Hcl 1 Mg Capsule) 2 mg PO BEDTIME [facility]; Protocol Last Admin: 10/24/23 20:30 Dose: 2 mg Trazodone HCl (Trazodone Hcl 50 Mg Tablet) 50 mg PO BEDTIME MRX1 PRN PRN Reason: Insomnia Last Admin: 10/24/23 20:30 Dose: 50 mg Allergies Allergies Allergy/AdvReac Type Severity Reaction Status Date / Time No Known Allergies Allergy Verified 10/19/23 11:16 [No Known Allergies*] Assessment & Plan Assessment & Plan (1) Acute psychosis: Status: Acute Code(s): F23 - Brief psychotic disorder (2) Bipolar 1 disorder with moderate horacio: Status: Acute Code(s): F31.12 - Bipolar disorder, current episode manic without psychotic features, moderate Plan 28 yo citizen of [place] male, [place] islander speaking, with acute psychosis, bipolar disorder. Pt is reported to have gone to the [employer], made a gun gesture with his hands, asked for childrens names and stated, I todd, I kill. He is religiously preoccupied, telling CARE he is God and threatening to kill his ex , their three children and himself. Plan: Admit, CV, 15 minute checks Collateral contact Three day notice filed, plan to file Section 7. Depakote ER 500 mg HS Haldol 5 mg bid Haldol 5 mg tid prn Prepare for Haldol Decanoate injection if po Haldol is tolerated Lorazepam 2 mg q 4 hours prn Olanzapine 5 mg daily Olanzapine 5 mg tid prn Prazosin 2 mg hs Trazodone 50 mg hs prn, MR x1 10/21- Continue current tx 10/22: continue current management and treatment plan. 10/23: continue current management and treatment plan. 10/24: Increase Depakote ER to 1000 mg HS Increase Haldol to 10 mg bid Reason for continued inpatient stay Substantial Risk for: rapid decompensation Time Spent With Patient Time: Total time managing care of this patient today ____ minutes.
[2023-10-25 20:00] VITALS: BP 130/78; PULSE 94; RESP 16; TEMP 36.3; O2SAT 98
[2023-10-25] MEDS: Prazosin HCL 1 MG CAPSULE 2 MG PO (21:02)
[2023-10-25] MEDS: HaloperidoL 5 MG TABLET 10 MG PO (21:02)
[2023-10-25] MEDS: Divalproex Sodium ER 500 MG TAB.ER.24H 1000 MG PO (21:03)
[2023-10-26 08:16] VITALS: BP 130/84; PULSE 96; RESP 18; TEMP 36.4; O2SAT 99
[2023-10-26] MEDS: Famotidine 20 MG TABLET PO ×2 (09:17→21:01)
[2023-10-26] MEDS: OLANZapine 5 MG TABLET PO (09:18)
[2023-10-26] MEDS: HaloperidoL 5 MG TABLET 10 MG PO ×2 (09:18→21:02)
--- NOTE | 2023-10-26 16:57 | P.PNPSI_ITS ---
Subjective Subjective Date of Service: 10/26/23 Reason For Visit: bipolar disorder Subjective Notes: Section 7 Healthcare Proxy: No Guardianship: No Medical Problems Affecting Mental Status: No Interim History: Visable at times in milieu, Mild engagement. Responding to internal stimuli at times, self-dialoguing at times. Denies anger, agitation,fear. I am peaceful here. Declines to meet, Another day, I am thanking God today. Medication Compliance: Yes Side effects from medications: No Attending Groups: No Review of Systems Acute medical concerns: No Medical Review of Systems: unchanged Review of Systems Review of Systems Yes all other systems are reviewed and are negative Mental Status Exam Mental Status Exam Patient Appearance: Disheveled Patient Orientation: Person and Place Level of Consciousness: Restless and Alert Patient Behavior: Guarded, Talkative, Hyperactive, Suspicious, Restless, Anxious, Distractible and Impulsive Mood Description: Constricted Affect Description: Constricted Patient Cognition Impaired: No Ability to Follow Directions: Fair Speech Pattern: Perseverating, Spontaneous Speech, Rambling and Rapid Memory Description: Remote Impaired Diagnostics Vital Signs (24Hr): Vital Signs - 24 hr 10/25/23 20:00 10/26/23 08:16 Temperature 97.4 F 97.6 F Pulse Rate 94 96 Respiratory Rate 16 18 Blood Pressure 130/78 130/84 Pulse Oximetry 98 99 Oxygen Delivery Method Room Air Room Air BMI result Body Mass Index 27.0 Labs 10/20/23 08:47 10/20/23 08:47 Medications Medications Current Medications Acetaminophen (Acetaminophen 325 Mg Tablet) 650 mg PO Q6H PRN PRN Reason: Headache/Pain Mild Scale (1-3) Al Hydroxide/Mg Hydroxide (Magnesium Hydrox/Alum Hydrox 30 Ml Oral.Susp) 30 ml PO Q6H PRN PRN Reason: Heartburn/Nausea Albuterol Sulfate (Albuterol Sulfate 90 Mcg 8 Gm Inhaler) 2 puff INHALE Q4H PRN PRN Reason: Wheezing Divalproex Sodium (Divalproex Sodium Er 500 Mg Tab.Er.24h) 1,000 mg PO BEDTIME [facility] Last Admin: 10/25/23 21:03 Dose: 1,000 mg Famotidine (Famotidine 20 Mg Tablet) 20 mg PO BID [facility] Last Admin: 10/26/23 09:17 Dose: 20 mg Haloperidol (Haloperidol 5 Mg Tablet) 5 mg PO TID PRN PRN Reason: psychosis, agitation Last Admin: 10/24/23 15:07 Dose: 5 mg Haloperidol (Haloperidol 5 Mg Tablet) 10 mg PO BID [facility] Last Admin: 10/26/23 09:18 Dose: 10 mg Hydroxyzine HCl (Hydroxyzine Hcl 25 Mg Tablet) 25 mg PO Q6H PRN PRN Reason: Anxiety Last Admin: 10/25/23 13:25 Dose: 25 mg Lorazepam (Lorazepam 1 Mg Tablet) 2 mg PO Q4H PRN PRN Reason: severe agitation Last Admin: 10/24/23 20:30 Dose: 2 mg Magnesium Hydroxide (Milk Of Magnesia 30 Ml Oral.Susp) 30 ml PO DAILY PRN PRN Reason: Constipation Nicotine (Nicotine 21 Mg Patch.Td24) 21 mg TRANSDERMA DAILY PRN PRN Reason: Nicotine Cravings Nicotine Polacrilex (Nicotine Polacrilex 2 Mg Gum) 4 mg BUCCAL Q2H PRN PRN Reason: Nicotine Cravings Olanzapine (Olanzapine 5 Mg Tablet) 5 mg PO DAILY [facility] Last Admin: 10/26/23 09:18 Dose: 5 mg Olanzapine (Olanzapine 5 Mg Tablet) 5 mg PO TID PRN PRN Reason: agitation Last Admin: 10/23/23 06:07 Dose: 5 mg Prazosin HCl (Prazosin Hcl 1 Mg Capsule) 2 mg PO BEDTIME [facility]; Protocol Last Admin: 10/25/23 21:02 Dose: 2 mg Trazodone HCl (Trazodone Hcl 50 Mg Tablet) 50 mg PO BEDTIME MRX1 PRN PRN Reason: Insomnia Last Admin: 10/24/23 20:30 Dose: 50 mg Allergies Allergies Allergy/AdvReac Type Severity Reaction Status Date / Time No Known Allergies Allergy Verified 10/19/23 11:16 [No Known Allergies*] Assessment & Plan Assessment & Plan (1) Acute psychosis: Status: Acute Code(s): F23 - Brief psychotic disorder (2) Bipolar 1 disorder with moderate horacio: Status: Acute Code(s): F31.12 - Bipolar disorder, current episode manic without psychotic features, moderate Plan 28 yo martin male, upper sorbian speaking, with acute psychosis, bipolar disorder. Pt is reported to have gone to the [employer], made a gun gesture with his hands, asked for childrens names and stated, I todd, I kill. He is religiously preoccupied, telling CARE he is God and threatening to kill his ex , their three children and himself. Plan: Admit, CV, 15 minute checks Collateral contact Three day notice filed, plan to file Section 7. Depakote ER 500 mg HS Haldol 5 mg bid Haldol 5 mg tid prn Prepare for Haldol Decanoate injection if po Haldol is tolerated Lorazepam 2 mg q 4 hours prn Olanzapine 5 mg daily Olanzapine 5 mg tid prn Prazosin 2 mg hs Trazodone 50 mg hs prn, MR x1 10/21- Continue current tx 10/22: continue current management and treatment plan. 10/23: continue current management and treatment plan. 10/24: Increase Depakote ER to 1000 mg HS Increase Haldol to 10 mg bid 10/25: Continue tx Reason for continued inpatient stay Substantial Risk for: rapid decompensation Time Spent With Patient Time: Total time managing care of this patient today ____ minutes.
[2023-10-26 20:00] VITALS: BP 135/88; PULSE 93; RESP 16; TEMP 36.3; O2SAT 98
[2023-10-26] MEDS: Prazosin HCL 1 MG CAPSULE 2 MG PO (21:01)
[2023-10-26] MEDS: Divalproex Sodium ER 500 MG TAB.ER.24H 1000 MG PO (21:01)
[2023-10-27 08:00] VITALS: BP 115/58; PULSE 56; RESP 18; TEMP 36.6; O2SAT 96
[2023-10-27] MEDS: HaloperidoL 5 MG TABLET 10 MG PO ×2 (08:44→21:06)
[2023-10-27] MEDS: Famotidine 20 MG TABLET PO ×2 (08:44→21:06)
[2023-10-27] MEDS: OLANZapine 5 MG TABLET PO (08:45)
--- NOTE | 2023-10-27 10:53 | HO.PSYCHPN ---
Subjective Subjective Date of Service: 10/27/23 Reason For Visit: bipolar disorder Subjective Notes: Section 7 Healthcare Proxy: No Guardianship: No Medical Problems Affecting Mental Status: No Interim History: Met with pt, [facility] [employer], Moises MENESES. [facility] application is completed. Pt agrees we should apply on his behalf. I miss my children, my family, when can I leave.? Review of issues precipitating admission- HI to a local school, HI to ex spouse, children. Pt expressing sincere remorse, cried. Denies any intent. Discussed illness, how this was not a problem when he was young and the burden symptoms have on him, especially when not medicated. Expresses remorse for his actions prior to admission. Discussed med compliance. Pt initiated discussion of DUNNE! We discussed Haldol Dec 50 mg to begin 10/27. He agrees. Reports no current restraining order from family, children. We will attempt to contact ex for her input. Medication Compliance: Yes Side effects from medications: No Attending Groups: No Review of Systems Acute medical concerns: No Medical Review of Systems: unchanged Review of Systems Review of Systems Yes all other systems are reviewed and are negative Mental Status Exam Mental Status Exam Patient Appearance: Appropriate Patient Orientation: Person, Place and Situation Level of Consciousness: Alert Patient Behavior: Appropriate, Talkative, Cooperative and Good Eye Contact Mood Description: Depressed Affect Description: Flat Patient Cognition Impaired: No Ability to Follow Directions: Good Speech Pattern: Spontaneous Speech Memory Description: Episodic Impaired Hallucinations: Auditory Delusions: Present (decreasing) Perceptual Disturbances: Derealization Thought Process: Rumination Thought Content: positive for Circumstantial Depressive Symptoms: Feelings of Guilt Judgement: Fair Diagnostics Vital Signs (24Hr): Vital Signs - 24 hr 10/26/23 20:00 Temperature 97.4 F Pulse Rate 93 Respiratory Rate 16 Blood Pressure 135/88 Pulse Oximetry 98 Oxygen Delivery Method Room Air BMI result Body Mass Index 27.0 Labs 10/20/23 08:47 10/20/23 08:47 Medications Medications Current Medications Acetaminophen (Acetaminophen 325 Mg Tablet) 650 mg PO Q6H PRN PRN Reason: Headache/Pain Mild Scale (1-3) Al Hydroxide/Mg Hydroxide (Magnesium Hydrox/Alum Hydrox 30 Ml Oral.Susp) 30 ml PO Q6H PRN PRN Reason: Heartburn/Nausea Albuterol Sulfate (Albuterol Sulfate 90 Mcg 8 Gm Inhaler) 2 puff INHALE Q4H PRN PRN Reason: Wheezing Divalproex Sodium (Divalproex Sodium Er 500 Mg Tab.Er.24h) 1,000 mg PO BEDTIME [facility] Last Admin: 10/26/23 21:01 Dose: 1,000 mg Famotidine (Famotidine 20 Mg Tablet) 20 mg PO BID [facility] Last Admin: 10/27/23 08:44 Dose: 20 mg Haloperidol (Haloperidol 5 Mg Tablet) 5 mg PO TID PRN PRN Reason: psychosis, agitation Last Admin: 10/24/23 15:07 Dose: 5 mg Haloperidol (Haloperidol 5 Mg Tablet) 10 mg PO BID [facility] Last Admin: 10/27/23 08:44 Dose: 10 mg Hydroxyzine HCl (Hydroxyzine Hcl 25 Mg Tablet) 25 mg PO Q6H PRN PRN Reason: Anxiety Last Admin: 10/25/23 13:25 Dose: 25 mg Lorazepam (Lorazepam 1 Mg Tablet) 2 mg PO Q4H PRN PRN Reason: severe agitation Last Admin: 10/24/23 20:30 Dose: 2 mg Magnesium Hydroxide (Milk Of Magnesia 30 Ml Oral.Susp) 30 ml PO DAILY PRN PRN Reason: Constipation Nicotine (Nicotine 21 Mg Patch.Td24) 21 mg TRANSDERMA DAILY PRN PRN Reason: Nicotine Cravings Nicotine Polacrilex (Nicotine Polacrilex 2 Mg Gum) 4 mg BUCCAL Q2H PRN PRN Reason: Nicotine Cravings Olanzapine (Olanzapine 5 Mg Tablet) 5 mg PO DAILY [facility] Last Admin: 10/27/23 08:45 Dose: 5 mg Olanzapine (Olanzapine 5 Mg Tablet) 5 mg PO TID PRN PRN Reason: agitation Last Admin: 10/23/23 06:07 Dose: 5 mg Prazosin HCl (Prazosin Hcl 1 Mg Capsule) 2 mg PO BEDTIME [facility]; Protocol Last Admin: 10/26/23 21:01 Dose: 2 mg Trazodone HCl (Trazodone Hcl 50 Mg Tablet) 50 mg PO BEDTIME MRX1 PRN PRN Reason: Insomnia Last Admin: 10/24/23 20:30 Dose: 50 mg Allergies Allergies Allergy/AdvReac Type Severity Reaction Status Date / Time No Known Allergies Allergy Verified 10/19/23 11:16 [No Known Allergies*] Assessment & Plan Assessment & Plan (1) Acute psychosis: Status: Acute Code(s): F23 - Brief psychotic disorder (2) Bipolar 1 disorder with moderate horacio: Status: Acute Code(s): F31.12 - Bipolar disorder, current episode manic without psychotic features, moderate Plan 28 yo martin male, upper sorbian speaking, with acute psychosis, bipolar disorder. Pt is reported to have gone to the [employer], made a gun gesture with his hands, asked for childrens names and stated, I todd, I kill. He is religiously preoccupied, telling CARE he is God and threatening to kill his ex , their three children and himself. Plan: Admit, CV, 15 minute checks Collateral contact Three day notice filed, plan to file Section 7. Depakote ER 500 mg HS Haldol 5 mg bid Haldol 5 mg tid prn Prepare for Haldol Decanoate injection if po Haldol is tolerated Lorazepam 2 mg q 4 hours prn Olanzapine 5 mg daily Olanzapine 5 mg tid prn Prazosin 2 mg hs Trazodone 50 mg hs prn, MR x1 10/21- Continue current tx 10/22: continue current management and treatment plan. 10/23: continue current management and treatment plan. 10/24: Increase Depakote ER to 1000 mg HS Increase Haldol to 10 mg bid 10/26: Haldol Dec 50 mg IM 10/27. Pt agrees. Reason for continued inpatient stay Substantial Risk for: rapid decompensation Time Spent With Patient Time: Total time managing care of this patient today ____ minutes.
[2023-10-27 20:00] VITALS: BP 135/76; PULSE 84; RESP 18; TEMP 36.4; O2SAT 98
[2023-10-27] MEDS: Divalproex Sodium ER 500 MG TAB.ER.24H 1000 MG PO (21:05)
[2023-10-27] MEDS: Prazosin HCL 1 MG CAPSULE 2 MG PO (21:05)
[2023-10-27] MEDS: traZODone HCL 50 MG TABLET PO (21:06)
[2023-10-28 07:00] VITALS: BMI 27.8
[2023-10-28 08:00] VITALS: BP 99/61; PULSE 54; RESP 16; TEMP 36.4; O2SAT 97
[2023-10-28] MEDS: HaloperidoL 5 MG TABLET 10 MG PO ×2 (09:19→21:37)
[2023-10-28] MEDS: Famotidine 20 MG TABLET PO ×2 (09:19→21:37)
[2023-10-28] MEDS: OLANZapine 5 MG TABLET PO (09:19)
[2023-10-28] MEDS: Haloperidol Decanoate 50 MG/ML VIAL IM (09:21)
--- NOTE | 2023-10-28 10:36 | P.PNPSI_ITS ---
Subjective Subjective Date of Service: 10/28/23 Reason For Visit: bipolar disorder Interim History: Met with patient; discussed with team; reviewed chart Patient received Haldol Decanoate without issue. Patient overall improved though insight still impaired; says he is okay; discussed his menu and pt says he asked for soft food due to braces but now wants regular so underwriter changed order. No other complaints or requests. Mental Status Exam Mental Status Exam Patient Appearance: Appropriate Patient Orientation: Person, Place and Situation Level of Consciousness: Alert Patient Behavior: Appropriate, Talkative, Cooperative and Good Eye Contact Mood Description: Depressed Affect Description: Flat Patient Cognition Impaired: No Ability to Follow Directions: Good Speech Pattern: Spontaneous Speech Memory Description: Episodic Impaired Hallucinations: Auditory Delusions: Present (decreasing) Perceptual Disturbances: Derealization Thought Process: Rumination Thought Content: positive for Circumstantial Depressive Symptoms: Feelings of Guilt Judgement: Fair Diagnostics Vital Signs (24Hr): Vital Signs - 24 hr 10/27/23 20:00 10/28/23 08:00 Temperature 97.6 F 97.6 F Pulse Rate 84 54 Respiratory Rate 18 16 Blood Pressure 135/76 99/61 Pulse Oximetry 98 97 Oxygen Delivery Method Room Air Room Air BMI result Body Mass Index 27.0 Labs 10/20/23 08:47 10/20/23 08:47 Medications Medications Current Medications Acetaminophen (Acetaminophen 325 Mg Tablet) 650 mg PO Q6H PRN PRN Reason: Headache/Pain Mild Scale (1-3) Al Hydroxide/Mg Hydroxide (Magnesium Hydrox/Alum Hydrox 30 Ml Oral.Susp) 30 ml PO Q6H PRN PRN Reason: Heartburn/Nausea Albuterol Sulfate (Albuterol Sulfate 90 Mcg 8 Gm Inhaler) 2 puff INHALE Q4H PRN PRN Reason: Wheezing Divalproex Sodium (Divalproex Sodium Er 500 Mg Tab.Er.24h) 1,000 mg PO BEDTIME [facility] Last Admin: 10/27/23 21:05 Dose: 1,000 mg Famotidine (Famotidine 20 Mg Tablet) 20 mg PO BID [facility] Last Admin: 10/28/23 09:19 Dose: 20 mg Haloperidol (Haloperidol 5 Mg Tablet) 5 mg PO TID PRN PRN Reason: psychosis, agitation Last Admin: 10/24/23 15:07 Dose: 5 mg Haloperidol (Haloperidol 5 Mg Tablet) 10 mg PO BID [facility] Last Admin: 10/28/23 09:19 Dose: 10 mg Hydroxyzine HCl (Hydroxyzine Hcl 25 Mg Tablet) 25 mg PO Q6H PRN PRN Reason: Anxiety Last Admin: 10/25/23 13:25 Dose: 25 mg Lorazepam (Lorazepam 1 Mg Tablet) 2 mg PO Q4H PRN PRN Reason: severe agitation Last Admin: 10/24/23 20:30 Dose: 2 mg Magnesium Hydroxide (Milk Of Magnesia 30 Ml Oral.Susp) 30 ml PO DAILY PRN PRN Reason: Constipation Nicotine (Nicotine 21 Mg Patch.Td24) 21 mg TRANSDERMA DAILY PRN PRN Reason: Nicotine Cravings Nicotine Polacrilex (Nicotine Polacrilex 2 Mg Gum) 4 mg BUCCAL Q2H PRN PRN Reason: Nicotine Cravings Olanzapine (Olanzapine 5 Mg Tablet) 5 mg PO DAILY [facility] Last Admin: 10/28/23 09:19 Dose: 5 mg Olanzapine (Olanzapine 5 Mg Tablet) 5 mg PO TID PRN PRN Reason: agitation Last Admin: 10/23/23 06:07 Dose: 5 mg Prazosin HCl (Prazosin Hcl 1 Mg Capsule) 2 mg PO BEDTIME [facility]; Protocol Last Admin: 10/27/23 21:05 Dose: 2 mg Trazodone HCl (Trazodone Hcl 50 Mg Tablet) 50 mg PO BEDTIME MRX1 PRN PRN Reason: Insomnia Last Admin: 10/27/23 21:06 Dose: 50 mg Allergies Allergies Allergy/AdvReac Type Severity Reaction Status Date / Time No Known Allergies Allergy Verified 10/19/23 11:16 [No Known Allergies*] Assessment & Plan Assessment & Plan (1) Acute psychosis: Status: Acute Code(s): F23 - Brief psychotic disorder (2) Bipolar 1 disorder with moderate horacio: Status: Acute Code(s): F31.12 - Bipolar disorder, current episode manic without psychotic features, moderate Plan 28 yo martin male, syriac speaking, with acute psychosis, bipolar disorder. Pt is reported to have gone to the [employer], made a gun gesture with his hands, asked for childrens names and stated, I todd, I kill. He is religiously preoccupied, telling CARE he is God and threatening to kill his ex , their three children and himself. Plan: Admit, CV, 15 minute checks Collateral contact Three day notice filed, plan to file Section 7. Depakote ER 500 mg HS Haldol 5 mg bid Haldol 5 mg tid prn Prepare for Haldol Decanoate injection if po Haldol is tolerated Lorazepam 2 mg q 4 hours prn Olanzapine 5 mg daily Olanzapine 5 mg tid prn Prazosin 2 mg hs Trazodone 50 mg hs prn, MR x1 10/21- Continue current tx 10/22: continue current management and treatment plan. 10/23: continue current management and treatment plan. 10/24: Increase Depakote ER to 1000 mg HS Increase Haldol to 10 mg bid 10/26: Haldol Dec 50 mg IM 10/27. Pt agrees. 10/27 patient received Haldol deck without issue; remains improved Diet changed to regular Patient educated on: diagnosis Informed Consent: understands, does not understand and further education needed Reason for continued inpatient stay Substantial Risk for: rapid decompensation Time Spent With Patient Time: Total time managing care of this patient today ____ minutes.
[2023-10-28 21:30] VITALS: BP 134/67; PULSE 87; RESP 16; TEMP 36.4; O2SAT 97
[2023-10-28] MEDS: traZODone HCL 50 MG TABLET PO (21:37)
[2023-10-28] MEDS: Prazosin HCL 1 MG CAPSULE 2 MG PO (21:37)
[2023-10-28] MEDS: Divalproex Sodium ER 500 MG TAB.ER.24H 1000 MG PO (21:38)
[2023-10-29 07:53] VITALS: BP 116/57; PULSE 62; RESP 16; TEMP 36.7; O2SAT 95
[2023-10-29] MEDS: Famotidine 20 MG TABLET PO ×2 (08:46→21:01)
[2023-10-29] MEDS: OLANZapine 5 MG TABLET PO (08:46)
[2023-10-29] MEDS: HaloperidoL 5 MG TABLET 10 MG PO ×2 (08:46→21:00)
--- NOTE | 2023-10-29 10:03 | P.PNPSI_ITS ---
Subjective Subjective Date of Service: 10/29/23 Reason For Visit: bipolar disorder Subjective Notes: Section 7 Healthcare Proxy: No Guardianship: No Medical Problems Affecting Mental Status: No Interim History: Attempted to reach pt's . Current number he has provided is not in service, . Positive today, denies SE of medications, including DUNNE. Asks about going home. Medication Compliance: Yes Side effects from medications: No Attending Groups: No Review of Systems Acute medical concerns: No Medical Review of Systems: unchanged Review of Systems Review of Systems Appears positive but at times seems tired. Yes all other systems are reviewed and are negative Mental Status Exam Mental Status Exam Patient Appearance: Appropriate Patient Orientation: Person, Place and Situation Level of Consciousness: Alert Patient Behavior: Appropriate, Talkative, Cooperative and Good Eye Contact Mood Description: Depressed Affect Description: Flat Patient Cognition Impaired: No Ability to Follow Directions: Good Speech Pattern: Spontaneous Speech Memory Description: Episodic Impaired Hallucinations: Auditory Delusions: Present (decreasing) Perceptual Disturbances: Derealization Thought Process: Rumination Thought Content: positive for Circumstantial Depressive Symptoms: Feelings of Guilt Judgement: Fair Diagnostics Vital Signs (24Hr): Vital Signs - 24 hr 10/28/23 21:30 10/29/23 07:53 Temperature 97.5 F 98.1 F Pulse Rate 87 62 Respiratory Rate 16 16 Blood Pressure 134/67 116/57 L Pulse Oximetry 97 95 Oxygen Delivery Method Room Air Room Air BMI result Body Mass Index 27.8 Labs 10/20/23 08:47 10/20/23 08:47 Medications Medications Current Medications Acetaminophen (Acetaminophen 325 Mg Tablet) 650 mg PO Q6H PRN PRN Reason: Headache/Pain Mild Scale (1-3) Al Hydroxide/Mg Hydroxide (Magnesium Hydrox/Alum Hydrox 30 Ml Oral.Susp) 30 ml PO Q6H PRN PRN Reason: Heartburn/Nausea Albuterol Sulfate (Albuterol Sulfate 90 Mcg 8 Gm Inhaler) 2 puff INHALE Q4H PRN PRN Reason: Wheezing Divalproex Sodium (Divalproex Sodium Er 500 Mg Tab.Er.24h) 1,000 mg PO BEDTIME [facility] Last Admin: 10/28/23 21:38 Dose: 1,000 mg Famotidine (Famotidine 20 Mg Tablet) 20 mg PO BID [facility] Last Admin: 10/29/23 08:46 Dose: 20 mg Haloperidol (Haloperidol 5 Mg Tablet) 5 mg PO TID PRN PRN Reason: psychosis, agitation Last Admin: 10/24/23 15:07 Dose: 5 mg Haloperidol (Haloperidol 5 Mg Tablet) 10 mg PO BID [facility] Last Admin: 10/29/23 08:46 Dose: 10 mg Hydroxyzine HCl (Hydroxyzine Hcl 25 Mg Tablet) 25 mg PO Q6H PRN PRN Reason: Anxiety Last Admin: 10/25/23 13:25 Dose: 25 mg Lorazepam (Lorazepam 1 Mg Tablet) 2 mg PO Q4H PRN PRN Reason: severe agitation Last Admin: 10/24/23 20:30 Dose: 2 mg Magnesium Hydroxide (Milk Of Magnesia 30 Ml Oral.Susp) 30 ml PO DAILY PRN PRN Reason: Constipation Nicotine (Nicotine 21 Mg Patch.Td24) 21 mg TRANSDERMA DAILY PRN PRN Reason: Nicotine Cravings Nicotine Polacrilex (Nicotine Polacrilex 2 Mg Gum) 4 mg BUCCAL Q2H PRN PRN Reason: Nicotine Cravings Olanzapine (Olanzapine 5 Mg Tablet) 5 mg PO DAILY [facility] Last Admin: 10/29/23 08:46 Dose: 5 mg Olanzapine (Olanzapine 5 Mg Tablet) 5 mg PO TID PRN PRN Reason: agitation Last Admin: 10/23/23 06:07 Dose: 5 mg Prazosin HCl (Prazosin Hcl 1 Mg Capsule) 2 mg PO BEDTIME [facility]; Protocol Last Admin: 10/28/23 21:37 Dose: 2 mg Trazodone HCl (Trazodone Hcl 50 Mg Tablet) 50 mg PO BEDTIME MRX1 PRN PRN Reason: Insomnia Last Admin: 10/28/23 21:37 Dose: 50 mg Allergies Allergies Allergy/AdvReac Type Severity Reaction Status Date / Time No Known Allergies Allergy Verified 10/19/23 11:16 [No Known Allergies*] Assessment & Plan Assessment & Plan (1) Acute psychosis: Status: Acute Code(s): F23 - Brief psychotic disorder (2) Bipolar 1 disorder with moderate horacio: Status: Acute Code(s): F31.12 - Bipolar disorder, current episode manic without psychotic features, moderate Plan 28 yo [place] male, indonesian speaking, with acute psychosis, bipolar disorder. Pt is reported to have gone to the [facility], made a gun gesture with his hands, asked for childrens names and stated, I todd, I kill. He is religiously preoccupied, telling CARE he is God and threatening to kill his ex , their three children and himself. Plan: Admit, CV, 15 minute checks Collateral contact Three day notice filed, plan to file Section 7. Depakote ER 500 mg HS Haldol 5 mg bid Haldol 5 mg tid prn Prepare for Haldol Decanoate injection if po Haldol is tolerated Lorazepam 2 mg q 4 hours prn Olanzapine 5 mg daily Olanzapine 5 mg tid prn Prazosin 2 mg hs Trazodone 50 mg hs prn, MR x1 10/21- Continue current tx 10/22: continue current management and treatment plan. 10/23: continue current management and treatment plan. 10/24: Increase Depakote ER to 1000 mg HS Increase Haldol to 10 mg bid 10/26: Haldol Dec 50 mg IM 10/27. Pt agrees. 10/27 patient received Haldol deck without issue; remains improved Diet changed to regular 10/28 Continue current tx. Reason for continued inpatient stay Substantial Risk for: rapid decompensation Time Spent With Patient Time: Total time managing care of this patient today ____ minutes.
[2023-10-29 20:00] VITALS: BP 130/68; PULSE 73; TEMP 36.6; O2SAT 99
[2023-10-29 20:58] VITALS: BP 130/68
[2023-10-29] MEDS: Prazosin HCL 1 MG CAPSULE 2 MG PO (20:58)
[2023-10-29] MEDS: traZODone HCL 50 MG TABLET PO (21:00)
[2023-10-29] MEDS: Divalproex Sodium ER 500 MG TAB.ER.24H 1000 MG PO (21:01)
--- NOTE | 2023-10-30 08:09 | HO.PSYCHPN ---
Subjective Subjective Date of Service: 10/30/23 Reason For Visit: bipolar disorder Interim History: met with patient and [place]-speaking staff as per patient preference. Reports doing much better now. Feels medications are extremely helpful and he will continue these after discharge. Hallucinations much less. Reports they still have negative content, but no desire to act upon same. Feeling supported on the unit. Looking forward to seeing his 3 children after discharge. Sleep good. Medication Compliance: Yes Side effects from medications: No Attending Groups: Intermittent Review of Systems Acute medical concerns: No Review of Systems Review of Systems Unremarkable Mental Status Exam Mental Status Exam Narrative: pleasant. Engaged. Casually dressed presented. Organized. Euthymic. Some tearfulness when discussing children. No SI. No HI. No agitation or psychosis. Insight and judgment fair Diagnostics Vital Signs (24Hr): Vital Signs - 24 hr 10/29/23 20:00 10/29/23 20:58 Temperature 97.8 F Pulse Rate 73 Blood Pressure 130/68 130/68 Pulse Oximetry 99 Oxygen Delivery Method Room Air BMI result Body Mass Index 27.8 Labs 10/20/23 08:47 10/20/23 08:47 Medications Medications Current Medications Acetaminophen (Acetaminophen 325 Mg Tablet) 650 mg PO Q6H PRN PRN Reason: Headache/Pain Mild Scale (1-3) Al Hydroxide/Mg Hydroxide (Magnesium Hydrox/Alum Hydrox 30 Ml Oral.Susp) 30 ml PO Q6H PRN PRN Reason: Heartburn/Nausea Albuterol Sulfate (Albuterol Sulfate 90 Mcg 8 Gm Inhaler) 2 puff INHALE Q4H PRN PRN Reason: Wheezing Divalproex Sodium (Divalproex Sodium Er 500 Mg Tab.Er.24h) 1,000 mg PO BEDTIME WEN Last Admin: 10/29/23 21:01 Dose: 1,000 mg Famotidine (Famotidine 20 Mg Tablet) 20 mg PO BID WEN Last Admin: 10/29/23 21:01 Dose: 20 mg Haloperidol (Haloperidol 5 Mg Tablet) 5 mg PO TID PRN PRN Reason: psychosis, agitation Last Admin: 10/24/23 15:07 Dose: 5 mg Haloperidol (Haloperidol 5 Mg Tablet) 10 mg PO BID WEN Last Admin: 10/29/23 21:00 Dose: 10 mg Hydroxyzine HCl (Hydroxyzine Hcl 25 Mg Tablet) 25 mg PO Q6H PRN PRN Reason: Anxiety Last Admin: 10/25/23 13:25 Dose: 25 mg Lorazepam (Lorazepam 1 Mg Tablet) 2 mg PO Q4H PRN PRN Reason: severe agitation Last Admin: 10/24/23 20:30 Dose: 2 mg Magnesium Hydroxide (Milk Of Magnesia 30 Ml Oral.Susp) 30 ml PO DAILY PRN PRN Reason: Constipation Nicotine (Nicotine 21 Mg Patch.Td24) 21 mg TRANSDERMA DAILY PRN PRN Reason: Nicotine Cravings Nicotine Polacrilex (Nicotine Polacrilex 2 Mg Gum) 4 mg BUCCAL Q2H PRN PRN Reason: Nicotine Cravings Olanzapine (Olanzapine 5 Mg Tablet) 5 mg PO DAILY WEN Last Admin: 10/29/23 08:46 Dose: 5 mg Olanzapine (Olanzapine 5 Mg Tablet) 5 mg PO TID PRN PRN Reason: agitation Last Admin: 10/23/23 06:07 Dose: 5 mg Prazosin HCl (Prazosin Hcl 1 Mg Capsule) 2 mg PO BEDTIME WEN; Protocol Last Admin: 10/29/23 20:58 Dose: 2 mg Trazodone HCl (Trazodone Hcl 50 Mg Tablet) 50 mg PO BEDTIME MRX1 PRN PRN Reason: Insomnia Last Admin: 10/29/23 21:00 Dose: 50 mg Allergies Allergies Allergy/AdvReac Type Severity Reaction Status Date / Time No Known Allergies Allergy Verified 10/19/23 11:16 [No Known Allergies*] Assessment & Plan Assessment & Plan (1) Acute psychosis: Status: Acute Code(s): F23 - Brief psychotic disorder (2) Bipolar 1 disorder with moderate horacio: Status: Acute Code(s): F31.12 - Bipolar disorder, current episode manic without psychotic features, moderate Plan 28 yo swedish male, danish speaking, with acute psychosis, bipolar disorder. Pt is reported to have gone to the [employer], made a gun gesture with his hands, asked for childrens names and stated, I todd, I kill. He is religiously preoccupied, telling CARE he is God and threatening to kill his ex , their three children and himself. Plan: Admit, CV, 15 minute checks Collateral contact Three day notice filed, plan to file Section 7. Depakote ER 500 mg HS Haldol 5 mg bid Haldol 5 mg tid prn Prepare for Haldol Decanoate injection if po Haldol is tolerated Lorazepam 2 mg q 4 hours prn Olanzapine 5 mg daily Olanzapine 5 mg tid prn Prazosin 2 mg hs Trazodone 50 mg hs prn, MR x1 10/21- Continue current tx 10/22: continue current management and treatment plan. 10/23: continue current management and treatment plan. 10/24: Increase Depakote ER to 1000 mg HS Increase Haldol to 10 mg bid 10/26: Haldol Dec 50 mg IM 10/27. Pt agrees. 10/27 patient received Haldol deck without issue; remains improved Diet changed to regular 10/28 Continue current tx. 10/30/2023: No changes Reason for continued inpatient stay Substantial Risk for: rapid decompensation Time Spent With Patient Time: Total time managing care of this patient today ____ minutes.
[2023-10-30] MEDS: HaloperidoL 5 MG TABLET 10 MG PO ×2 (08:41→21:57)
[2023-10-30] MEDS: Famotidine 20 MG TABLET PO ×2 (08:41→21:57)
[2023-10-30] MEDS: OLANZapine 5 MG TABLET PO (08:42)
[2023-10-30 08:44] VITALS: BP 99/61; PULSE 79; RESP 16; TEMP 36.4; O2SAT 94
[2023-10-30 20:00] VITALS: BP 126/78; PULSE 77; TEMP 36.7; O2SAT 98
[2023-10-30] MEDS: Divalproex Sodium ER 500 MG TAB.ER.24H 1000 MG PO (21:55)
[2023-10-30 21:56] VITALS: BP 110/57
[2023-10-30] MEDS: Prazosin HCL 1 MG CAPSULE 2 MG PO (21:56)
[2023-10-30] MEDS: traZODone HCL 50 MG TABLET PO (21:57)
[2023-10-31] MEDS: Famotidine 20 MG TABLET PO ×2 (08:49→21:08)
[2023-10-31] MEDS: OLANZapine 5 MG TABLET PO ×2 (08:49→21:08)
[2023-10-31] MEDS: HaloperidoL 5 MG TABLET 10 MG PO ×2 (08:49→21:08)
[2023-10-31 08:51] VITALS: BP 104/55; PULSE 62; RESP 18; TEMP 36.4; O2SAT 99
--- NOTE | 2023-10-31 10:55 | P.PNPSI_ITS ---
Subjective Subjective Date of Service: 10/31/23 Reason For Visit: bipolar disorder Interim History: met with patient. Discussed with Nursing. Patient had minimal engagement today, stating he was fine with a thumbs up and declined interview. As per staff has been bright, engaged, in milieu, med adherence and insight good. Has been helping others on the unit in a friendly and appropriate manner. Review of Systems Review of Systems Unremarkable Mental Status Exam Mental Status Exam Narrative: pleasant. Engaged. casually dressed and presented. Organized. Euthymic. No SI or HI. No agitation. No psychosis. Insight and judgment fair Diagnostics Vital Signs (24Hr): Vital Signs - 24 hr 10/30/23 20:00 10/30/23 21:56 10/31/23 08:51 Temperature 98.1 F 97.5 F Pulse Rate 77 62 Respiratory Rate 18 Blood Pressure 126/78 110/57 L 104/55 L Pulse Oximetry 98 99 Oxygen Delivery Method Room Air Room Air BMI result Body Mass Index 27.8 Labs 10/20/23 08:47 10/20/23 08:47 Medications Medications Current Medications Acetaminophen (Acetaminophen 325 Mg Tablet) 650 mg PO Q6H PRN PRN Reason: Headache/Pain Mild Scale (1-3) Al Hydroxide/Mg Hydroxide (Magnesium Hydrox/Alum Hydrox 30 Ml Oral.Susp) 30 ml PO Q6H PRN PRN Reason: Heartburn/Nausea Albuterol Sulfate (Albuterol Sulfate 90 Mcg 8 Gm Inhaler) 2 puff INHALE Q4H PRN PRN Reason: Wheezing Divalproex Sodium (Divalproex Sodium Er 500 Mg Tab.Er.24h) 1,000 mg PO BEDTIME [facility] Last Admin: 10/30/23 21:55 Dose: 1,000 mg Famotidine (Famotidine 20 Mg Tablet) 20 mg PO BID [facility] Last Admin: 10/31/23 08:49 Dose: 20 mg Haloperidol (Haloperidol 5 Mg Tablet) 5 mg PO TID PRN PRN Reason: psychosis, agitation Last Admin: 10/24/23 15:07 Dose: 5 mg Haloperidol (Haloperidol 5 Mg Tablet) 10 mg PO BID [facility] Last Admin: 10/31/23 08:49 Dose: 10 mg Hydroxyzine HCl (Hydroxyzine Hcl 25 Mg Tablet) 25 mg PO Q6H PRN PRN Reason: Anxiety Last Admin: 10/25/23 13:25 Dose: 25 mg Lorazepam (Lorazepam 1 Mg Tablet) 2 mg PO Q4H PRN PRN Reason: severe agitation Last Admin: 10/24/23 20:30 Dose: 2 mg Magnesium Hydroxide (Milk Of Magnesia 30 Ml Oral.Susp) 30 ml PO DAILY PRN PRN Reason: Constipation Nicotine (Nicotine 21 Mg Patch.Td24) 21 mg TRANSDERMA DAILY PRN PRN Reason: Nicotine Cravings Nicotine Polacrilex (Nicotine Polacrilex 2 Mg Gum) 4 mg BUCCAL Q2H PRN PRN Reason: Nicotine Cravings Olanzapine (Olanzapine 5 Mg Tablet) 5 mg PO DAILY WEN Last Admin: 10/31/23 08:49 Dose: 5 mg Olanzapine (Olanzapine 5 Mg Tablet) 5 mg PO TID PRN PRN Reason: agitation Last Admin: 10/23/23 06:07 Dose: 5 mg Prazosin HCl (Prazosin Hcl 1 Mg Capsule) 2 mg PO BEDTIME WEN; Protocol Last Admin: 10/30/23 21:56 Dose: 2 mg Trazodone HCl (Trazodone Hcl 50 Mg Tablet) 50 mg PO BEDTIME MRX1 PRN PRN Reason: Insomnia Last Admin: 10/30/23 21:57 Dose: 50 mg Allergies Allergies Allergy/AdvReac Type Severity Reaction Status Date / Time No Known Allergies Allergy Verified 10/19/23 11:16 [No Known Allergies*] Assessment & Plan Assessment & Plan (1) Acute psychosis: Status: Acute Code(s): F23 - Brief psychotic disorder (2) Bipolar 1 disorder with moderate horacio: Status: Acute Code(s): F31.12 - Bipolar disorder, current episode manic without psychotic features, moderate Plan 28 yo martin male, [place] speaking, with acute psychosis, bipolar disorder. Pt is reported to have gone to the [email or web address], made a gun gesture with his hands, asked for childrens names and stated, I todd, I kill. He is religiously preoccupied, telling CARE he is God and threatening to kill his ex , their three children and himself. Plan: Admit, CV, 15 minute checks Collateral contact Three day notice filed, plan to file Section 7. Depakote ER 500 mg HS Haldol 5 mg bid Haldol 5 mg tid prn Prepare for Haldol Decanoate injection if po Haldol is tolerated Lorazepam 2 mg q 4 hours prn Olanzapine 5 mg daily Olanzapine 5 mg tid prn Prazosin 2 mg hs Trazodone 50 mg hs prn, MR x1 10/21- Continue current tx 10/22: continue current management and treatment plan. 10/23: continue current management and treatment plan. 10/24: Increase Depakote ER to 1000 mg HS Increase Haldol to 10 mg bid 10/26: Haldol Dec 50 mg IM 10/27. Pt agrees. 10/27 patient received Haldol deck without issue; remains improved Diet changed to regular 10/28 Continue current tx. 10/30/2023: No changes 10/31/2023: No changes Reason for continued inpatient stay Substantial Risk for: rapid decompensation Time Spent With Patient Time: Total time managing care of this patient today ____ minutes.
[2023-10-31 20:00] VITALS: BP 136/89; PULSE 90; RESP 16; TEMP 36.9; O2SAT 98
[2023-10-31] MEDS: traZODone HCL 50 MG TABLET PO (21:08)
[2023-10-31] MEDS: Prazosin HCL 1 MG CAPSULE 2 MG PO (21:08)
[2023-10-31] MEDS: Divalproex Sodium ER 500 MG TAB.ER.24H 1000 MG PO (21:08)
[2023-11-01 08:00] VITALS: BP 106/55; PULSE 57; RESP 18; TEMP 36.3; O2SAT 97
[2023-11-01] MEDS: OLANZapine 5 MG TABLET PO (09:11)
[2023-11-01] MEDS: Famotidine 20 MG TABLET PO ×2 (09:11→21:30)
[2023-11-01] MEDS: HaloperidoL 5 MG TABLET 10 MG PO ×2 (09:11→21:29)
--- NOTE | 2023-11-01 15:55 | HO.PSYCHPN ---
Subjective Subjective Date of Service: 11/01/23 Reason For Visit: bipolar disorder Subjective Notes: Section 7 Healthcare Proxy: No Guardianship: No Medical Problems Affecting Mental Status: No Interim History: Reports some improvement. Visited with ex-, talked with parents, children over the weekend. Getting reconnected. Reports a decrease in AH. Denies SE of Haldol Dec IM. Feeling safe on the unit. Medication Compliance: Yes Side effects from medications: No Attending Groups: Intermittent Review of Systems Acute medical concerns: No Medical Review of Systems: unchanged Review of Systems Review of Systems Denies Yes all other systems are reviewed and are negative Mental Status Exam Mental Status Exam Patient Appearance: Appropriate Patient Orientation: Person, Place and Situation Level of Consciousness: Alert Patient Behavior: Appropriate, Talkative, Cooperative and Good Eye Contact Mood Description: Depressed Affect Description: Flat Patient Cognition Impaired: No Ability to Follow Directions: Good Speech Pattern: Spontaneous Speech Memory Description: Episodic Impaired Hallucinations: Auditory Delusions: Present (decreasing) Perceptual Disturbances: Derealization Thought Process: Rumination Thought Content: positive for Circumstantial Depressive Symptoms: Feelings of Guilt Judgement: Fair Diagnostics Vital Signs (24Hr): Vital Signs - 24 hr 10/31/23 20:00 11/01/23 08:00 Temperature 98.4 F 97.4 F Pulse Rate 90 57 Respiratory Rate 16 18 Blood Pressure 136/89 106/55 L Pulse Oximetry 98 97 Oxygen Delivery Method Room Air Room Air BMI result Body Mass Index 27.8 Labs 10/20/23 08:47 10/20/23 08:47 Medications Medications Current Medications Acetaminophen (Acetaminophen 325 Mg Tablet) 650 mg PO Q6H PRN PRN Reason: Headache/Pain Mild Scale (1-3) Al Hydroxide/Mg Hydroxide (Magnesium Hydrox/Alum Hydrox 30 Ml Oral.Susp) 30 ml PO Q6H PRN PRN Reason: Heartburn/Nausea Albuterol Sulfate (Albuterol Sulfate 90 Mcg 8 Gm Inhaler) 2 puff INHALE Q4H PRN PRN Reason: Wheezing Divalproex Sodium (Divalproex Sodium Er 500 Mg Tab.Er.24h) 1,000 mg PO BEDTIME [facility] Last Admin: 10/31/23 21:08 Dose: 1,000 mg Famotidine (Famotidine 20 Mg Tablet) 20 mg PO BID [facility] Last Admin: 11/01/23 09:11 Dose: 20 mg Haloperidol (Haloperidol 5 Mg Tablet) 5 mg PO TID PRN PRN Reason: psychosis, agitation Last Admin: 10/24/23 15:07 Dose: 5 mg Haloperidol (Haloperidol 5 Mg Tablet) 10 mg PO BID WEN Last Admin: 11/01/23 09:11 Dose: 10 mg Hydroxyzine HCl (Hydroxyzine Hcl 25 Mg Tablet) 25 mg PO Q6H PRN PRN Reason: Anxiety Last Admin: 10/25/23 13:25 Dose: 25 mg Lorazepam (Lorazepam 1 Mg Tablet) 2 mg PO Q4H PRN PRN Reason: severe agitation Last Admin: 10/24/23 20:30 Dose: 2 mg Magnesium Hydroxide (Milk Of Magnesia 30 Ml Oral.Susp) 30 ml PO DAILY PRN PRN Reason: Constipation Nicotine (Nicotine 21 Mg Patch.Td24) 21 mg TRANSDERMA DAILY PRN PRN Reason: Nicotine Cravings Nicotine Polacrilex (Nicotine Polacrilex 2 Mg Gum) 4 mg BUCCAL Q2H PRN PRN Reason: Nicotine Cravings Olanzapine (Olanzapine 5 Mg Tablet) 5 mg PO DAILY WEN Last Admin: 11/01/23 09:11 Dose: 5 mg Olanzapine (Olanzapine 5 Mg Tablet) 5 mg PO TID PRN PRN Reason: agitation Last Admin: 10/31/23 21:08 Dose: 5 mg Prazosin HCl (Prazosin Hcl 1 Mg Capsule) 2 mg PO BEDTIME WEN; Protocol Last Admin: 10/31/23 21:08 Dose: 2 mg Trazodone HCl (Trazodone Hcl 50 Mg Tablet) 50 mg PO BEDTIME MRX1 PRN PRN Reason: Insomnia Last Admin: 10/31/23 21:08 Dose: 50 mg Allergies Allergies Allergy/AdvReac Type Severity Reaction Status Date / Time No Known Allergies Allergy Verified 10/19/23 11:16 [No Known Allergies*] Assessment & Plan Assessment & Plan (1) Acute psychosis: Status: Acute Code(s): F23 - Brief psychotic disorder (2) Bipolar 1 disorder with moderate horacio: Status: Acute Code(s): F31.12 - Bipolar disorder, current episode manic without psychotic features, moderate Plan 28 yo fijian male, hebrew speaking, with acute psychosis, bipolar disorder. Pt is reported to have gone to the [employer], made a gun gesture with his hands, asked for childrens names and stated, I todd, I kill. He is religiously preoccupied, telling CARE he is God and threatening to kill his ex , their three children and himself. Plan: Admit, CV, 15 minute checks Collateral contact Three day notice filed, plan to file Section 7. Depakote ER 500 mg HS Haldol 5 mg bid Haldol 5 mg tid prn Prepare for Haldol Decanoate injection if po Haldol is tolerated Lorazepam 2 mg q 4 hours prn Olanzapine 5 mg daily Olanzapine 5 mg tid prn Prazosin 2 mg hs Trazodone 50 mg hs prn, MR x1 10/21- Continue current tx 10/22: continue current management and treatment plan. 10/23: continue current management and treatment plan. 10/24: Increase Depakote ER to 1000 mg HS Increase Haldol to 10 mg bid 10/26: Haldol Dec 50 mg IM 10/27. Pt agrees. 10/27 patient received Haldol deck without issue; remains improved Diet changed to regular 10/28 Continue current tx. 10/30/2023: No changes 10/31/2023: No changes 11/01/23: Continue tx Reason for continued inpatient stay Substantial Risk for: rapid decompensation Time Spent With Patient Time: Total time managing care of this patient today ____ minutes.
[2023-11-01 20:00] VITALS: BP 126/82; PULSE 75; RESP 16; TEMP 36.8; O2SAT 95
[2023-11-01] MEDS: Divalproex Sodium ER 500 MG TAB.ER.24H 1000 MG PO (21:30)
[2023-11-01] MEDS: Prazosin HCL 1 MG CAPSULE 2 MG PO (21:30)
[2023-11-02 08:00] VITALS: BP 127/77; PULSE 77; RESP 16; TEMP 36.7; O2SAT 98
[2023-11-02] MEDS: OLANZapine 5 MG TABLET PO (09:05)
[2023-11-02] MEDS: Famotidine 20 MG TABLET PO ×2 (09:05→20:14)
[2023-11-02] MEDS: HaloperidoL 5 MG TABLET 10 MG PO ×2 (09:05→20:11)
--- NOTE | 2023-11-02 09:50 | P.PNPSI_ITS ---
Subjective Subjective Date of Service: 11/02/23 Reason For Visit: bipolar disorder Subjective Notes: Section 7 Healthcare Proxy: No Guardianship: No Medical Problems Affecting Mental Status: No Interim History: Visable in milieu. Continues to self-dialogue at times. Pleased that [facility] has accepted him and will be coming into meet him in the near future. Medication Compliance: Yes Side effects from medications: No Attending Groups: Intermittent Review of Systems Acute medical concerns: No Medical Review of Systems: unchanged Review of Systems Review of Systems Yes all other systems are reviewed and are negative Mental Status Exam Mental Status Exam Patient Appearance: Appropriate Patient Orientation: Person, Place and Situation Level of Consciousness: Alert Patient Behavior: Appropriate, Talkative, Cooperative and Good Eye Contact Mood Description: Depressed Affect Description: Flat Patient Cognition Impaired: No Ability to Follow Directions: Good Speech Pattern: Spontaneous Speech Memory Description: Episodic Impaired Hallucinations: Auditory Delusions: Present (decreasing) Perceptual Disturbances: Derealization Thought Process: Rumination Thought Content: positive for Circumstantial Depressive Symptoms: Feelings of Guilt Judgement: Fair Diagnostics Vital Signs (24Hr): Vital Signs - 24 hr 11/01/23 20:00 11/02/23 08:00 Temperature 98.2 F 98.1 F Pulse Rate 75 77 Respiratory Rate 16 16 Blood Pressure 126/82 127/77 Pulse Oximetry 95 98 Oxygen Delivery Method Room Air Room Air BMI result Body Mass Index 27.8 Labs 10/20/23 08:47 10/20/23 08:47 Medications Medications Current Medications Acetaminophen (Acetaminophen 325 Mg Tablet) 650 mg PO Q6H PRN PRN Reason: Headache/Pain Mild Scale (1-3) Al Hydroxide/Mg Hydroxide (Magnesium Hydrox/Alum Hydrox 30 Ml Oral.Susp) 30 ml PO Q6H PRN PRN Reason: Heartburn/Nausea Albuterol Sulfate (Albuterol Sulfate 90 Mcg 8 Gm Inhaler) 2 puff INHALE Q4H PRN PRN Reason: Wheezing Divalproex Sodium (Divalproex Sodium Er 500 Mg Tab.Er.24h) 1,000 mg PO BEDTIME [facility] Last Admin: 11/01/23 21:30 Dose: 1,000 mg Famotidine (Famotidine 20 Mg Tablet) 20 mg PO BID WEN Last Admin: 11/02/23 09:05 Dose: 20 mg Haloperidol (Haloperidol 5 Mg Tablet) 5 mg PO TID PRN PRN Reason: psychosis, agitation Last Admin: 10/24/23 15:07 Dose: 5 mg Haloperidol (Haloperidol 5 Mg Tablet) 10 mg PO BID WEN Last Admin: 11/02/23 09:05 Dose: 10 mg Hydroxyzine HCl (Hydroxyzine Hcl 25 Mg Tablet) 25 mg PO Q6H PRN PRN Reason: Anxiety Last Admin: 10/25/23 13:25 Dose: 25 mg Lorazepam (Lorazepam 1 Mg Tablet) 2 mg PO Q4H PRN PRN Reason: severe agitation Last Admin: 10/24/23 20:30 Dose: 2 mg Magnesium Hydroxide (Milk Of Magnesia 30 Ml Oral.Susp) 30 ml PO DAILY PRN PRN Reason: Constipation Nicotine (Nicotine 21 Mg Patch.Td24) 21 mg TRANSDERMA DAILY PRN PRN Reason: Nicotine Cravings Nicotine Polacrilex (Nicotine Polacrilex 2 Mg Gum) 4 mg BUCCAL Q2H PRN PRN Reason: Nicotine Cravings Olanzapine (Olanzapine 5 Mg Tablet) 5 mg PO DAILY WEN Last Admin: 11/02/23 09:05 Dose: 5 mg Olanzapine (Olanzapine 5 Mg Tablet) 5 mg PO TID PRN PRN Reason: agitation Last Admin: 10/31/23 21:08 Dose: 5 mg Prazosin HCl (Prazosin Hcl 1 Mg Capsule) 2 mg PO BEDTIME WEN; Protocol Last Admin: 11/01/23 21:30 Dose: 2 mg Trazodone HCl (Trazodone Hcl 50 Mg Tablet) 50 mg PO BEDTIME MRX1 PRN PRN Reason: Insomnia Last Admin: 10/31/23 21:08 Dose: 50 mg Allergies Allergies Allergy/AdvReac Type Severity Reaction Status Date / Time No Known Allergies Allergy Verified 10/19/23 11:16 [No Known Allergies*] Assessment & Plan Assessment & Plan (1) Acute psychosis: Status: Acute Code(s): F23 - Brief psychotic disorder (2) Bipolar 1 disorder with moderate horacio: Status: Acute Code(s): F31.12 - Bipolar disorder, current episode manic without psychotic features, moderate Plan 28 yo martin male, latvian speaking, with acute psychosis, bipolar disorder. Pt is reported to have gone to the [employer], made a gun gesture with his hands, asked for childrens names and stated, I todd, I kill. He is religiously preoccupied, telling CARE he is God and threatening to kill his ex , their three children and himself. Plan: Admit, CV, 15 minute checks Collateral contact Three day notice filed, plan to file Section 7. Depakote ER 500 mg HS Haldol 5 mg bid Haldol 5 mg tid prn Prepare for Haldol Decanoate injection if po Haldol is tolerated Lorazepam 2 mg q 4 hours prn Olanzapine 5 mg daily Olanzapine 5 mg tid prn Prazosin 2 mg hs Trazodone 50 mg hs prn, MR x1 10/21- Continue current tx 10/22: continue current management and treatment plan. 10/23: continue current management and treatment plan. 10/24: Increase Depakote ER to 1000 mg HS Increase Haldol to 10 mg bid 10/26: Haldol Dec 50 mg IM 10/27. Pt agrees. 10/27 patient received Haldol deck without issue; remains improved Diet changed to regular 10/28 Continue current tx. 10/30/2023: No changes 10/31/2023: No changes 11/02/23: Continue tx. Reason for continued inpatient stay Substantial Risk for: rapid decompensation Time Spent With Patient Time: Total time managing care of this patient today ____ minutes.
[2023-11-02 20:00] VITALS: BP 135/84; PULSE 83; RESP 18; TEMP 36.9; O2SAT 97
[2023-11-02] MEDS: Divalproex Sodium ER 500 MG TAB.ER.24H 1000 MG PO (20:11)
[2023-11-02] MEDS: traZODone HCL 50 MG TABLET PO (20:11)
[2023-11-02 20:12] VITALS: BP 128/77
[2023-11-02] MEDS: Prazosin HCL 1 MG CAPSULE 2 MG PO (20:12)
[2023-11-03] MEDS: traZODone HCL 50 MG TABLET PO (00:50)
[2023-11-03 08:00] VITALS: BP 97/52; PULSE 59; RESP 16; TEMP 36.8; O2SAT 97
[2023-11-03] MEDS: HaloperidoL 5 MG TABLET 10 MG PO ×2 (09:19→21:26)
[2023-11-03] MEDS: Famotidine 20 MG TABLET PO ×2 (09:19→21:45)
[2023-11-03] MEDS: OLANZapine 5 MG TABLET PO (09:19)
[2023-11-03] MEDS: hydrOXYzine HCL 25 MG TABLET PO (15:13)
[2023-11-03 20:00] VITALS: BP 137/76; PULSE 86; RESP 16; TEMP 36.7; O2SAT 98
[2023-11-03 21:25] VITALS: BP 137/76
[2023-11-03] MEDS: Divalproex Sodium ER 500 MG TAB.ER.24H 1000 MG PO (21:25)
[2023-11-03] MEDS: Prazosin HCL 1 MG CAPSULE 2 MG PO (21:25)
[2023-11-04 07:00] VITALS: BMI 28.8
[2023-11-04 08:00] VITALS: BP 94/62; PULSE 89; RESP 16; TEMP 36.7; O2SAT 96
[2023-11-04] MEDS: Famotidine 20 MG TABLET PO ×2 (11:03→20:23)
[2023-11-04] MEDS: OLANZapine 5 MG TABLET PO (11:03)
[2023-11-04] MEDS: HaloperidoL 5 MG TABLET 10 MG PO (11:03)
--- NOTE | 2023-11-04 17:39 | P.PNPSI_ITS ---
Subjective Subjective Date of Service: 11/03/23 Reason For Visit: bipolar disorder Subjective Notes: Section 7 Healthcare Proxy: No Guardianship: No Medical Problems Affecting Mental Status: No Interim History: Team reports [facility] will come to meet with pt on 11/07. Pt reports he feels OK. Reports sleep is still somewhat broken Denies SI/HI +AH, -VH. States he perceives his bed to vibrate at night at times and wonders why this occurs. Reports contact with family. Denies issues of concern at this time. States he believes he will live with his ex mother in law upon discharge. Medication Compliance: Yes Side effects from medications: No Attending Groups: No Review of Systems Acute medical concerns: No Medical Review of Systems: unchanged Review of Systems Review of Systems Yes all other systems are reviewed and are negative Mental Status Exam Mental Status Exam Patient Appearance: Appropriate Patient Orientation: Person, Place and Situation Level of Consciousness: Alert Patient Behavior: Appropriate, Talkative, Cooperative and Good Eye Contact Mood Description: Depressed Affect Description: Flat Patient Cognition Impaired: No Ability to Follow Directions: Good Speech Pattern: Spontaneous Speech Memory Description: Episodic Impaired Hallucinations: Auditory Delusions: Present (decreasing) Perceptual Disturbances: Derealization Thought Process: Rumination Thought Content: positive for Circumstantial Depressive Symptoms: Feelings of Guilt Judgement: Fair Diagnostics Vital Signs (24Hr): Vital Signs - 24 hr 11/03/23 20:00 11/03/23 21:25 11/04/23 08:00 Temperature 98.0 F 98.1 F Pulse Rate 86 89 Respiratory Rate 16 16 Blood Pressure 137/76 137/76 94/62 Pulse Oximetry 98 96 Oxygen Delivery Method Room Air Room Air BMI result Body Mass Index 27.8 Labs 10/20/23 08:47 10/20/23 08:47 Medications Medications Current Medications Acetaminophen (Acetaminophen 325 Mg Tablet) 650 mg PO Q6H PRN PRN Reason: Headache/Pain Mild Scale (1-3) Al Hydroxide/Mg Hydroxide (Magnesium Hydrox/Alum Hydrox 30 Ml Oral.Susp) 30 ml PO Q6H PRN PRN Reason: Heartburn/Nausea Albuterol Sulfate (Albuterol Sulfate 90 Mcg 8 Gm Inhaler) 2 puff INHALE Q4H PRN PRN Reason: Wheezing Divalproex Sodium (Divalproex Sodium Er 500 Mg Tab.Er.24h) 1,000 mg PO BEDTIME [facility]EN Last Admin: 11/03/23 21:25 Dose: 1,000 mg Famotidine (Famotidine 20 Mg Tablet) 20 mg PO BID [facility] Last Admin: 11/04/23 11:03 Dose: 20 mg Haloperidol (Haloperidol 5 Mg Tablet) 5 mg PO TID PRN PRN Reason: psychosis, agitation Last Admin: 10/24/23 15:07 Dose: 5 mg Haloperidol (Haloperidol 5 Mg Tablet) 10 mg PO BID WEN Last Admin: 11/04/23 11:03 Dose: 10 mg Hydroxyzine HCl (Hydroxyzine Hcl 25 Mg Tablet) 25 mg PO Q6H PRN PRN Reason: Anxiety Last Admin: 11/03/23 15:13 Dose: 25 mg Lorazepam (Lorazepam 1 Mg Tablet) 2 mg PO Q4H PRN PRN Reason: severe agitation Last Admin: 10/24/23 20:30 Dose: 2 mg Magnesium Hydroxide (Milk Of Magnesia 30 Ml Oral.Susp) 30 ml PO DAILY PRN PRN Reason: Constipation Nicotine (Nicotine 21 Mg Patch.Td24) 21 mg TRANSDERMA DAILY PRN PRN Reason: Nicotine Cravings Nicotine Polacrilex (Nicotine Polacrilex 2 Mg Gum) 4 mg BUCCAL Q2H PRN PRN Reason: Nicotine Cravings Olanzapine (Olanzapine 5 Mg Tablet) 5 mg PO DAILY [facility]EN Last Admin: 11/04/23 11:03 Dose: 5 mg Olanzapine (Olanzapine 5 Mg Tablet) 5 mg PO TID PRN PRN Reason: agitation Last Admin: 10/31/23 21:08 Dose: 5 mg Prazosin HCl (Prazosin Hcl 1 Mg Capsule) 2 mg PO BEDTIME WEN; Protocol Last Admin: 11/03/23 21:25 Dose: 2 mg Trazodone HCl (Trazodone Hcl 50 Mg Tablet) 50 mg PO BEDTIME MRX1 PRN PRN Reason: Insomnia Last Admin: 11/03/23 00:50 Dose: 50 mg Allergies Allergies Allergy/AdvReac Type Severity Reaction Status Date / Time No Known Allergies Allergy Verified 10/19/23 11:16 [No Known Allergies*] Assessment & Plan Assessment & Plan (1) Acute psychosis: Status: Acute Code(s): F23 - Brief psychotic disorder (2) Bipolar 1 disorder with moderate horacio: Status: Acute Code(s): F31.12 - Bipolar disorder, current episode manic without psychotic features, moderate Plan 28 yo martin male, palestinian speaking, with acute psychosis, bipolar disorder. Pt is reported to have gone to the [employer] made a gun gesture with his hands, asked for childrens names and stated, I todd, I kill. He is religiously preoccupied, telling CARE he is God and threatening to kill his ex , their three children and himself. Plan: Admit, CV, 15 minute checks Collateral contact Three day notice filed, plan to file Section 7. Depakote ER 500 mg HS Haldol 5 mg bid Haldol 5 mg tid prn Prepare for Haldol Decanoate injection if po Haldol is tolerated Lorazepam 2 mg q 4 hours prn Olanzapine 5 mg daily Olanzapine 5 mg tid prn Prazosin 2 mg hs Trazodone 50 mg hs prn, MR x1 10/21- Continue current tx 10/22: continue current management and treatment plan. 10/23: continue current management and treatment plan. 10/24: Increase Depakote ER to 1000 mg HS Increase Haldol to 10 mg bid 10/26: Haldol Dec 50 mg IM 10/27. Pt agrees. 10/27 patient received Haldol deck without issue; remains improved Diet changed to regular 10/28 Continue current tx. 10/30/2023: No changes 10/31/2023: No changes 11/02/23: Continue tx. 11/03/23: [facility] will meet with pt on 11/08/23 to complete his application, needs/means eval. Reason for continued inpatient stay Substantial Risk for: rapid decompensation Time Spent With Patient Time: Total time managing care of this patient today ____ minutes.
--- NOTE | 2023-11-04 17:39 | P.PNPSI_ITS ---
Subjective Subjective Date of Service: 11/04/23 Reason For Visit: bipolar disorder Subjective Notes: Section 7 Healthcare Proxy: No Guardianship: No Medical Problems Affecting Mental Status: No Interim History: Team reports pt appears sad. Med compliant, denies current issues Sleeps most of the a.m. Increase in afternoon activity and socializaiton with peers. Haldol Dec 50 mg due 11/10 Valproate level for 11/04 Medication Compliance: Yes Side effects from medications: No Attending Groups: No Review of Systems Acute medical concerns: No Medical Review of Systems: unchanged Review of Systems Review of Systems Yes all other systems are reviewed and are negative Mental Status Exam Mental Status Exam Patient Appearance: Appropriate Patient Orientation: Person, Place and Situation Level of Consciousness: Alert Patient Behavior: Appropriate, Talkative, Cooperative and Good Eye Contact Mood Description: Depressed Affect Description: Flat Patient Cognition Impaired: No Ability to Follow Directions: Good Speech Pattern: Spontaneous Speech Memory Description: Episodic Impaired Hallucinations: Auditory Delusions: Present (decreasing) Perceptual Disturbances: Derealization Thought Process: Rumination Thought Content: positive for Circumstantial Depressive Symptoms: Feelings of Guilt Judgement: Fair Diagnostics Vital Signs (24Hr): Vital Signs - 24 hr 11/03/23 20:00 11/03/23 21:25 11/04/23 08:00 Temperature 98.0 F 98.1 F Pulse Rate 86 89 Respiratory Rate 16 16 Blood Pressure 137/76 137/76 94/62 Pulse Oximetry 98 96 Oxygen Delivery Method Room Air Room Air BMI result Body Mass Index 27.8 Labs 10/20/23 08:47 10/20/23 08:47 Medications Medications Current Medications Acetaminophen (Acetaminophen 325 Mg Tablet) 650 mg PO Q6H PRN PRN Reason: Headache/Pain Mild Scale (1-3) Al Hydroxide/Mg Hydroxide (Magnesium Hydrox/Alum Hydrox 30 Ml Oral.Susp) 30 ml PO Q6H PRN PRN Reason: Heartburn/Nausea Albuterol Sulfate (Albuterol Sulfate 90 Mcg 8 Gm Inhaler) 2 puff INHALE Q4H PRN PRN Reason: Wheezing Divalproex Sodium (Divalproex Sodium Er 500 Mg Tab.Er.24h) 1,000 mg PO BEDTIME [facility] Last Admin: 11/03/23 21:25 Dose: 1,000 mg Famotidine (Famotidine 20 Mg Tablet) 20 mg PO BID [facility] Last Admin: 11/04/23 11:03 Dose: 20 mg Haloperidol (Haloperidol 5 Mg Tablet) 5 mg PO TID PRN PRN Reason: psychosis, agitation Last Admin: 10/24/23 15:07 Dose: 5 mg Haloperidol (Haloperidol 5 Mg Tablet) 10 mg PO BID WEN Last Admin: 11/04/23 11:03 Dose: 10 mg Hydroxyzine HCl (Hydroxyzine Hcl 25 Mg Tablet) 25 mg PO Q6H PRN PRN Reason: Anxiety Last Admin: 11/03/23 15:13 Dose: 25 mg Lorazepam (Lorazepam 1 Mg Tablet) 2 mg PO Q4H PRN PRN Reason: severe agitation Last Admin: 10/24/23 20:30 Dose: 2 mg Magnesium Hydroxide (Milk Of Magnesia 30 Ml Oral.Susp) 30 ml PO DAILY PRN PRN Reason: Constipation Nicotine (Nicotine 21 Mg Patch.Td24) 21 mg TRANSDERMA DAILY PRN PRN Reason: Nicotine Cravings Nicotine Polacrilex (Nicotine Polacrilex 2 Mg Gum) 4 mg BUCCAL Q2H PRN PRN Reason: Nicotine Cravings Olanzapine (Olanzapine 5 Mg Tablet) 5 mg PO DAILY [facility]EN Last Admin: 11/04/23 11:03 Dose: 5 mg Olanzapine (Olanzapine 5 Mg Tablet) 5 mg PO TID PRN PRN Reason: agitation Last Admin: 10/31/23 21:08 Dose: 5 mg Prazosin HCl (Prazosin Hcl 1 Mg Capsule) 2 mg PO BEDTIME WEN; Protocol Last Admin: 11/03/23 21:25 Dose: 2 mg Trazodone HCl (Trazodone Hcl 50 Mg Tablet) 50 mg PO BEDTIME MRX1 PRN PRN Reason: Insomnia Last Admin: 11/03/23 00:50 Dose: 50 mg Allergies Allergies Allergy/AdvReac Type Severity Reaction Status Date / Time No Known Allergies Allergy Verified 10/19/23 11:16 [No Known Allergies*] Assessment & Plan Assessment & Plan (1) Acute psychosis: Status: Acute Code(s): F23 - Brief psychotic disorder (2) Bipolar 1 disorder with moderate horacio: Status: Acute Code(s): F31.12 - Bipolar disorder, current episode manic without psychotic features, moderate Plan 28 yo cro[place]ian male, [place] speaking, with acute psychosis, bipolar disorder. Pt is reported to have gone to the [employer], made a gun gesture with his hands, asked for childrens names and stated, I todd, I kill. He is religiously preoccupied, telling CARE he is God and threatening to kill his ex , their three children and himself. Plan: Admit, CV, 15 minute checks Collateral contact Three day notice filed, plan to file Section 7. Depakote ER 500 mg HS Haldol 5 mg bid Haldol 5 mg tid prn Prepare for Haldol Decanoate injection if po Haldol is tolerated Lorazepam 2 mg q 4 hours prn Olanzapine 5 mg daily Olanzapine 5 mg tid prn Prazosin 2 mg hs Trazodone 50 mg hs prn, MR x1 10/21- Continue current tx 10/22: continue current management and treatment plan. 10/23: continue current management and treatment plan. 10/24: Increase Depakote ER to 1000 mg HS Increase Haldol to 10 mg bid 10/26: Haldol Dec 50 mg IM 10/27. Pt agrees. 10/27 patient received Haldol deck without issue; remains improved Diet changed to regular 10/28 Continue current tx. 10/30/2023: No changes 10/31/2023: No changes 11/02/23: Continue tx. 11/04/23: Valproate level 11/04 Decrease Haldol to 5 mg bid Haldol Dec IM due 11/10 Reason for continued inpatient stay Substantial Risk for: rapid decompensation Time Spent With Patient Time: Total time managing care of this patient today ____ minutes.
[2023-11-04 20:00] VITALS: BP 135/83; PULSE 77; RESP 18; TEMP 36.9; O2SAT 99
[2023-11-04 20:23] VITALS: BP 135/83
[2023-11-04] MEDS: Divalproex Sodium ER 500 MG TAB.ER.24H 1000 MG PO (20:23)
[2023-11-04] MEDS: HaloperidoL 5 MG TABLET PO (20:23)
[2023-11-04] MEDS: Prazosin HCL 1 MG CAPSULE 2 MG PO (20:23)
[2023-11-04] MEDS: traZODone HCL 50 MG TABLET PO (20:23)
[2023-11-05 08:00] VITALS: BP 102/57; PULSE 63; RESP 16; TEMP 36.9; O2SAT 96
[2023-11-05] MEDS: HaloperidoL 5 MG TABLET PO ×2 (09:05→20:54)
[2023-11-05] MEDS: Famotidine 20 MG TABLET PO ×2 (09:05→20:54)
[2023-11-05] MEDS: OLANZapine 5 MG TABLET PO ×2 (09:05→20:54)
[2023-11-05 09:37] LABS: Valproate 71.6 mcg/mL (50.0-100.0)
--- NOTE | 2023-11-05 17:12 | P.PNPSI_ITS ---
Subjective Subjective Date of Service: 11/05/23 Reason For Visit: bipolar disorder Subjective Notes: Section 7 Healthcare Proxy: No Guardianship: No Medical Problems Affecting Mental Status: No Interim History: Pt spends most of the day in his room and appears more visable and interactive in the evening. Denies depressive sx. Showered today. Will meet with [facility] on 11/[address] scheduled for 11/18/23. Valproate Level 71.6 Will DC scheduled Olanzapine Medication Compliance: Yes Side effects from medications: No Attending Groups: Intermittent Review of Systems Acute medical concerns: No Medical Review of Systems: unchanged Review of Systems Review of Systems Denies Mental Status Exam Mental Status Exam Patient Appearance: Appropriate Patient Orientation: Person, Place and Situation Level of Consciousness: Alert Patient Behavior: Appropriate, Talkative, Cooperative and Good Eye Contact Mood Description: Depressed Affect Description: Flat Patient Cognition Impaired: No Ability to Follow Directions: Good Speech Pattern: Spontaneous Speech Memory Description: Episodic Impaired Hallucinations: Auditory Delusions: Present (decreasing) Perceptual Disturbances: Derealization Thought Process: Rumination Thought Content: positive for Circumstantial Depressive Symptoms: Feelings of Guilt Judgement: Fair Diagnostics Vital Signs (24Hr): Vital Signs - 24 hr 11/04/23 20:00 11/04/23 20:23 11/05/23 08:00 Temperature 98.4 F 98.5 F Pulse Rate 77 63 Respiratory Rate 18 16 Blood Pressure 135/83 135/83 102/57 L Pulse Oximetry 99 96 Oxygen Delivery Method Room Air Room Air BMI result Body Mass Index 28.8 Labs 10/20/23 08:47 10/20/23 08:47 Labs: Laboratory Results - last 48 hr 11/05/23 09:17 Valproic Acid 71.6 Medications Medications Current Medications Acetaminophen (Acetaminophen 325 Mg Tablet) 650 mg PO Q6H PRN PRN Reason: Headache/Pain Mild Scale (1-3) Al Hydroxide/Mg Hydroxide (Magnesium Hydrox/Alum Hydrox 30 Ml Oral.Susp) 30 ml PO Q6H PRN PRN Reason: Heartburn/Nausea Albuterol Sulfate (Albuterol Sulfate 90 Mcg 8 Gm Inhaler) 2 puff INHALE Q4H PRN PRN Reason: Wheezing Divalproex Sodium (Divalproex Sodium Er 500 Mg Tab.Er.24h) 1,000 mg PO BEDTIME [facility]EN Last Admin: 11/04/23 20:23 Dose: 1,000 mg Famotidine (Famotidine 20 Mg Tablet) 20 mg PO BID WEN Last Admin: 11/05/23 09:05 Dose: 20 mg Haloperidol (Haloperidol 5 Mg Tablet) 5 mg PO TID PRN PRN Reason: psychosis, agitation Last Admin: 10/24/23 15:07 Dose: 5 mg Haloperidol (Haloperidol 5 Mg Tablet) 5 mg PO BID WEN Last Admin: 11/05/23 09:05 Dose: 5 mg Hydroxyzine HCl (Hydroxyzine Hcl 25 Mg Tablet) 25 mg PO Q6H PRN PRN Reason: Anxiety Last Admin: 11/03/23 15:13 Dose: 25 mg Lorazepam (Lorazepam 1 Mg Tablet) 2 mg PO Q4H PRN PRN Reason: severe agitation Last Admin: 10/24/23 20:30 Dose: 2 mg Magnesium Hydroxide (Milk Of Magnesia 30 Ml Oral.Susp) 30 ml PO DAILY PRN PRN Reason: Constipation Nicotine (Nicotine 21 Mg Patch.Td24) 21 mg TRANSDERMA DAILY PRN PRN Reason: Nicotine Cravings Nicotine Polacrilex (Nicotine Polacrilex 2 Mg Gum) 4 mg BUCCAL Q2H PRN PRN Reason: Nicotine Cravings Olanzapine (Olanzapine 5 Mg Tablet) 5 mg PO DAILY WEN Last Admin: 11/05/23 09:05 Dose: 5 mg Olanzapine (Olanzapine 5 Mg Tablet) 5 mg PO TID PRN PRN Reason: agitation Last Admin: 10/31/23 21:08 Dose: 5 mg Prazosin HCl (Prazosin Hcl 1 Mg Capsule) 2 mg PO BEDTIME WEN; Protocol Last Admin: 11/04/23 20:23 Dose: 2 mg Trazodone HCl (Trazodone Hcl 50 Mg Tablet) 50 mg PO BEDTIME MRX1 PRN PRN Reason: Insomnia Last Admin: 11/04/23 20:23 Dose: 50 mg Allergies Allergies Allergy/AdvReac Type Severity Reaction Status Date / Time No Known Allergies Allergy Verified 10/19/23 11:16 [No Known Allergies*] Assessment & Plan Assessment & Plan (1) Acute psychosis: Status: Acute Code(s): F23 - Brief psychotic disorder (2) Bipolar 1 disorder with moderate horacio: Status: Acute Code(s): F31.12 - Bipolar disorder, current episode manic without psychotic features, moderate Plan 28 yo martin male, [place] citizen speaking, with acute psychosis, bipolar disorder. Pt is reported to have gone to the [employer], made a gun gesture with his hands, asked for childrens names and stated, I todd, I kill. He is religiously preoccupied, telling CARE he is God and threatening to kill his ex , their three children and himself. Plan: Admit, CV, 15 minute checks Collateral contact Three day notice filed, plan to file Section 7. Depakote ER 500 mg HS Haldol 5 mg bid Haldol 5 mg tid prn Prepare for Haldol Decanoate injection if po Haldol is tolerated Lorazepam 2 mg q 4 hours prn Olanzapine 5 mg daily Olanzapine 5 mg tid prn Prazosin 2 mg hs Trazodone 50 mg hs prn, MR x1 10/21- Continue current tx 10/22: continue current management and treatment plan. 10/23: continue current management and treatment plan. 10/24: Increase Depakote ER to 1000 mg HS Increase Haldol to 10 mg bid 10/26: Haldol Dec 50 mg IM 10/27. Pt agrees. 10/27 patient received Haldol deck without issue; remains improved Diet changed to regular 10/28 Continue current tx. 10/30/2023: No changes 10/31/2023: No changes 11/02/23: Continue tx. 11/04/23: Valproate level 11/04 Decrease Haldol to 5 mg bid Haldol Dec IM due 11/1011/05/23 DC scheduled Olanzapine Valproate level 71.6 Reason for continued inpatient stay Substantial Risk for: rapid decompensation Time Spent With Patient Time: Total time managing care of this patient today ____ minutes.
[2023-11-05 20:00] VITALS: BP 121/63; PULSE 92; RESP 18; TEMP 36.8; O2SAT 97
[2023-11-05] MEDS: Prazosin HCL 1 MG CAPSULE 2 MG PO (20:53)
[2023-11-05] MEDS: Divalproex Sodium ER 500 MG TAB.ER.24H 1000 MG PO (20:53)
[2023-11-05] MEDS: traZODone HCL 50 MG TABLET PO (20:53)
[2023-11-06 08:25] VITALS: BP 90/54; PULSE 60; RESP 16; TEMP 36.6; O2SAT 97
[2023-11-06] MEDS: Famotidine 20 MG TABLET PO ×2 (09:24→21:07)
[2023-11-06] MEDS: HaloperidoL 5 MG TABLET PO ×2 (09:24→21:07)
--- NOTE | 2023-11-06 10:04 | HO.PSYCHPN ---
Subjective Subjective Date of Service: 11/06/23 Reason For Visit: bipolar disorder Interim History: Pt spends most of the day in his room and appears more visable and interactive in the evening. Denies depressive sx. Will meet with [facility] on 11/[address] scheduled for 11/18/23. He has been more subdued. More interactive in the evening shift. Valproate Level 71.6 Review of Systems Review of Systems Denies Yes all other systems are reviewed and are negative and Unobtainable due to mental status Mental Status Exam Mental Status Exam Narrative: pleasant. Engaged. casually dressed and presented. Organized. Euthymic. No SI or HI. No agitation. No psychosis. Insight and judgment fair Patient Appearance: Appropriate Patient Orientation: Person, Place and Situation Level of Consciousness: Alert Patient Behavior: Appropriate, Talkative, Cooperative and Good Eye Contact Mood Description: Depressed Affect Description: Flat Patient Cognition Impaired: No Ability to Follow Directions: Good Speech Pattern: Spontaneous Speech Memory Description: Episodic Impaired Diagnostics Vital Signs (24Hr): Vital Signs - 24 hr 11/05/23 20:00 11/06/23 08:25 Temperature 98.3 F 97.8 F Pulse Rate 92 60 Respiratory Rate 18 16 Blood Pressure 121/63 90/54 L Pulse Oximetry 97 97 Oxygen Delivery Method Room Air Room Air BMI result Body Mass Index 28.8 Labs 10/20/23 08:47 10/20/23 08:47 Labs: Laboratory Results - last 48 hr 11/05/23 09:17 Valproic Acid 71.6 Medications Medications Current Medications Acetaminophen (Acetaminophen 325 Mg Tablet) 650 mg PO Q6H PRN PRN Reason: Headache/Pain Mild Scale (1-3) Al Hydroxide/Mg Hydroxide (Magnesium Hydrox/Alum Hydrox 30 Ml Oral.Susp) 30 ml PO Q6H PRN PRN Reason: Heartburn/Nausea Albuterol Sulfate (Albuterol Sulfate 90 Mcg 8 Gm Inhaler) 2 puff INHALE Q4H PRN PRN Reason: Wheezing Divalproex Sodium (Divalproex Sodium Er 500 Mg Tab.Er.24h) 1,000 mg PO BEDTIME [facility] Last Admin: 11/05/23 20:53 Dose: 1,000 mg Famotidine (Famotidine 20 Mg Tablet) 20 mg PO BID [facility]EN Last Admin: 11/06/23 09:24 Dose: 20 mg Haloperidol (Haloperidol 5 Mg Tablet) 5 mg PO TID PRN PRN Reason: psychosis, agitation Last Admin: 10/24/23 15:07 Dose: 5 mg Haloperidol (Haloperidol 5 Mg Tablet) 5 mg PO BID WEN Last Admin: 11/06/23 09:24 Dose: 5 mg Hydroxyzine HCl (Hydroxyzine Hcl 25 Mg Tablet) 25 mg PO Q6H PRN PRN Reason: Anxiety Last Admin: 11/03/23 15:13 Dose: 25 mg Lorazepam (Lorazepam 1 Mg Tablet) 2 mg PO Q4H PRN PRN Reason: severe agitation Last Admin: 10/24/23 20:30 Dose: 2 mg Magnesium Hydroxide (Milk Of Magnesia 30 Ml Oral.Susp) 30 ml PO DAILY PRN PRN Reason: Constipation Nicotine (Nicotine 21 Mg Patch.Td24) 21 mg TRANSDERMA DAILY PRN PRN Reason: Nicotine Cravings Nicotine Polacrilex (Nicotine Polacrilex 2 Mg Gum) 4 mg BUCCAL Q2H PRN PRN Reason: Nicotine Cravings Olanzapine (Olanzapine 5 Mg Tablet) 5 mg PO TID PRN PRN Reason: agitation Last Admin: 11/05/23 20:54 Dose: 5 mg Prazosin HCl (Prazosin Hcl 1 Mg Capsule) 2 mg PO BEDTIME WEN; Protocol Last Admin: 11/05/23 20:53 Dose: 2 mg Trazodone HCl (Trazodone Hcl 50 Mg Tablet) 50 mg PO BEDTIME MRX1 PRN PRN Reason: Insomnia Last Admin: 11/05/23 20:53 Dose: 50 mg Allergies Allergies Allergy/AdvReac Type Severity Reaction Status Date / Time No Known Allergies Allergy Verified 10/19/23 11:16 [No Known Allergies*] Assessment & Plan Assessment & Plan (1) Acute psychosis: Status: Acute Code(s): F23 - Brief psychotic disorder (2) Bipolar 1 disorder with moderate horacio: Status: Acute Code(s): F31.12 - Bipolar disorder, current episode manic without psychotic features, moderate Plan 28 yo martin male, occitan speaking, with acute psychosis, bipolar disorder. Pt is reported to have gone to the [employer], made a gun gesture with his hands, asked for childrens names and stated, I todd, I kill. He is religiously preoccupied, telling CARE he is God and threatening to kill his ex , their three children and himself. Plan: Admit, CV, 15 minute checks Collateral contact Three day notice filed, plan to file Section 7. Depakote ER 500 mg HS Haldol 5 mg bid Haldol 5 mg tid prn Prepare for Haldol Decanoate injection if po Haldol is tolerated Lorazepam 2 mg q 4 hours prn Olanzapine 5 mg daily Olanzapine 5 mg tid prn Prazosin 2 mg hs Trazodone 50 mg hs prn, MR x1 10/21- Continue current tx 10/22: continue current management and treatment plan. 10/23: continue current management and treatment plan. 10/24: Increase Depakote ER to 1000 mg HS Increase Haldol to 10 mg bid 10/26: Haldol Dec 50 mg IM 10/27. Pt agrees. 10/27 patient received Haldol deck without issue; remains improved Diet changed to regular 10/28 Continue current tx. 10/30/2023: No changes 10/31/2023: No changes 11/02/23: Continue tx. 11/04/23: Valproate level 11/04 Decrease Haldol to 5 mg bid Haldol Dec IM due 11/1011/05/23 DC scheduled Olanzapine Valproate level 71.6 11/05: Haldol Dec on 11/10. Otherwise continue current management and treatment plan. Reason for continued inpatient stay Substantial Risk for: harm to others, inability to function and rapid decompensation Time Spent With Patient Time: Total time managing care of this patient today ____ minutes.
[2023-11-06 21:06] VITALS: BP 138/73; PULSE 63; RESP 16; TEMP 36.6; O2SAT 95
[2023-11-06] MEDS: Prazosin HCL 1 MG CAPSULE 2 MG PO (21:07)
[2023-11-06] MEDS: Divalproex Sodium ER 500 MG TAB.ER.24H 1000 MG PO (21:07)
[2023-11-07] MEDS: HaloperidoL 5 MG TABLET PO ×2 (08:57→21:12)
[2023-11-07] MEDS: Famotidine 20 MG TABLET PO ×2 (08:57→21:11)
[2023-11-07 09:01] VITALS: BP 102/71; PULSE 101; RESP 14; TEMP 36.4; O2SAT 97
--- NOTE | 2023-11-07 09:06 | HO.PSYCHPN ---
Subjective Subjective Date of Service: 11/07/23 Reason For Visit: bipolar disorder Interim History: Patient seen on the unit. Interacting with some patients. Mostly, pt spends the day in his room and appears more visible and interactive in the evening. Denies depressive sx. Says his mood is good. Not elated. Calm and composed. Will meet with [facility] on 11/[address] scheduled for 11/18/23. He has been more subdued. More interactive in the evening shift. Valproate Level 71.6 Review of Systems Review of Systems Denies Yes all other systems are reviewed and are negative and Unobtainable due to mental status Mental Status Exam Mental Status Exam Narrative: pleasant. Engaged. casually dressed and presented. Organized. Euthymic. No SI or HI. No agitation. No psychosis. Insight and judgment fair Patient Appearance: Appropriate Patient Orientation: Person, Place and Situation Level of Consciousness: Alert Patient Behavior: Appropriate, Talkative, Cooperative and Good Eye Contact Mood Description: Depressed Affect Description: Flat Patient Cognition Impaired: No Ability to Follow Directions: Good Speech Pattern: Spontaneous Speech Memory Description: Episodic Impaired Diagnostics Vital Signs (24Hr): Vital Signs - 24 hr 11/06/23 21:06 11/07/23 09:01 Temperature 97.9 F 97.5 F Pulse Rate 63 101 H Respiratory Rate 16 14 Blood Pressure 138/73 102/71 Pulse Oximetry 95 97 Oxygen Delivery Method Room Air Room Air BMI result Body Mass Index 28.8 Labs 10/20/23 08:47 10/20/23 08:47 Labs: Laboratory Results - last 48 hr 11/05/23 09:17 Valproic Acid 71.6 Medications Medications Current Medications Acetaminophen (Acetaminophen 325 Mg Tablet) 650 mg PO Q6H PRN PRN Reason: Headache/Pain Mild Scale (1-3) Al Hydroxide/Mg Hydroxide (Magnesium Hydrox/Alum Hydrox 30 Ml Oral.Susp) 30 ml PO Q6H PRN PRN Reason: Heartburn/Nausea Albuterol Sulfate (Albuterol Sulfate 90 Mcg 8 Gm Inhaler) 2 puff INHALE Q4H PRN PRN Reason: Wheezing Divalproex Sodium (Divalproex Sodium Er 500 Mg Tab.Er.24h) 1,000 mg PO BEDTIME [facility] Last Admin: 11/06/23 21:07 Dose: 1,000 mg Famotidine (Famotidine 20 Mg Tablet) 20 mg PO BID [facility] Last Admin: 11/07/23 08:57 Dose: 20 mg Haloperidol (Haloperidol 5 Mg Tablet) 5 mg PO TID PRN PRN Reason: psychosis, agitation Last Admin: 10/24/23 15:07 Dose: 5 mg Haloperidol (Haloperidol 5 Mg Tablet) 5 mg PO BID [facility] Last Admin: 11/07/23 08:57 Dose: 5 mg Hydroxyzine HCl (Hydroxyzine Hcl 25 Mg Tablet) 25 mg PO Q6H PRN PRN Reason: Anxiety Last Admin: 11/03/23 15:13 Dose: 25 mg Lorazepam (Lorazepam 1 Mg Tablet) 2 mg PO Q4H PRN PRN Reason: severe agitation Last Admin: 10/24/23 20:30 Dose: 2 mg Magnesium Hydroxide (Milk Of Magnesia 30 Ml Oral.Susp) 30 ml PO DAILY PRN PRN Reason: Constipation Nicotine (Nicotine 21 Mg Patch.Td24) 21 mg TRANSDERMA DAILY PRN PRN Reason: Nicotine Cravings Nicotine Polacrilex (Nicotine Polacrilex 2 Mg Gum) 4 mg BUCCAL Q2H PRN PRN Reason: Nicotine Cravings Olanzapine (Olanzapine 5 Mg Tablet) 5 mg PO TID PRN PRN Reason: agitation Last Admin: 11/05/23 20:54 Dose: 5 mg Prazosin HCl (Prazosin Hcl 1 Mg Capsule) 2 mg PO BEDTIME [facility]; Protocol Last Admin: 11/06/23 21:07 Dose: 2 mg Trazodone HCl (Trazodone Hcl 50 Mg Tablet) 50 mg PO BEDTIME MRX1 PRN PRN Reason: Insomnia Last Admin: 11/05/23 20:53 Dose: 50 mg Allergies Allergies Allergy/AdvReac Type Severity Reaction Status Date / Time No Known Allergies Allergy Verified 10/19/23 11:16 [No Known Allergies*] Assessment & Plan Assessment & Plan (1) Acute psychosis: Status: Acute Code(s): F23 - Brief psychotic disorder (2) Bipolar 1 disorder with moderate horacio: Status: Acute Code(s): F31.12 - Bipolar disorder, current episode manic without psychotic features, moderate Plan 28 yo turkmen male, tunisian speaking, with acute psychosis, bipolar disorder. Pt is reported to have gone to the [employer], made a gun gesture with his hands, asked for childrens names and stated, I todd, I kill. He is religiously preoccupied, telling CARE he is God and threatening to kill his ex , their three children and himself. Plan: Admit, CV, 15 minute checks Collateral contact Three day notice filed, plan to file Section 7. Depakote ER 500 mg HS Haldol 5 mg bid Haldol 5 mg tid prn Prepare for Haldol Decanoate injection if po Haldol is tolerated Lorazepam 2 mg q 4 hours prn Olanzapine 5 mg daily Olanzapine 5 mg tid prn Prazosin 2 mg hs Trazodone 50 mg hs prn, MR x1 10/21- Continue current tx 10/22: continue current management and treatment plan. 10/23: continue current management and treatment plan. 10/24: Increase Depakote ER to 1000 mg HS Increase Haldol to 10 mg bid 10/26: Haldol Dec 50 mg IM 10/27. Pt agrees. 10/27 patient received Haldol deck without issue; remains improved Diet changed to regular 10/28 Continue current tx. 10/30/2023: No changes 10/31/2023: No changes 11/02/23: Continue tx. 11/04/23: Valproate level 11/04 Decrease Haldol to 5 mg bid Haldol Dec IM due 11/1011/05/23 DC scheduled Olanzapine Valproate level 71.6 11/05: Haldol Dec on 11/10. Otherwise continue current management and treatment plan. 11/06: continue current management and treatment plan. Reason for continued inpatient stay Substantial Risk for: harm to others, inability to function and rapid decompensation Time Spent With Patient Time: Total time managing care of this patient today ____ minutes.
[2023-11-07 20:00] VITALS: BP 128/78; PULSE 87; TEMP 36.6; O2SAT 97
[2023-11-07 21:08] VITALS: BP 128/78
[2023-11-07] MEDS: Prazosin HCL 1 MG CAPSULE 2 MG PO (21:08)
[2023-11-07] MEDS: Divalproex Sodium ER 500 MG TAB.ER.24H 1000 MG PO (21:12)
[2023-11-07] MEDS: traZODone HCL 50 MG TABLET PO (21:12)
[2023-11-08 08:16] VITALS: BP 111/60; PULSE 56; RESP 14; TEMP 36.4; O2SAT 96
[2023-11-08] MEDS: Famotidine 20 MG TABLET PO ×2 (09:00→21:04)
[2023-11-08] MEDS: HaloperidoL 5 MG TABLET PO ×2 (09:01→21:04)
--- NOTE | 2023-11-08 10:39 | HO.PSYCHPN ---
Subjective Subjective Date of Service: 11/08/23 Reason For Visit: bipolar disorder Subjective Notes: Section 7 Healthcare Proxy: No Guardianship: No Medical Problems Affecting Mental Status: No Interim History: Pt met with [facility] today. They will attempt to expedite the application so pt may receive services as soon as possible. They request pt remain in patient for as long as possible so they may make appropriate arrangements and offer resources for him. Discussed discharge planning. Pt planning to have his injection on 11/10. When discharged he will stay with his mother in law and believes he may return to the [place] to his family of origin, however is not sure. He discussed missing his children and wanting to be close to them to participate in their lives. Denies SI,HI. Voices- at times , VH-denies, no CAH. Continues with remorse with statements made [employer] Medication Compliance: Yes Side effects from medications: No Attending Groups: No Review of Systems Acute medical concerns: No Medical Review of Systems: unchanged Review of Systems Review of Systems Yes all other systems are reviewed and are negative Mental Status Exam Mental Status Exam Patient Appearance: Appropriate Patient Orientation: Person, Place and Situation Level of Consciousness: Alert Patient Behavior: Appropriate, Talkative, Cooperative and Good Eye Contact Mood Description: Depressed Affect Description: Flat Patient Cognition Impaired: No Ability to Follow Directions: Good Speech Pattern: Spontaneous Speech Memory Description: Episodic Impaired Hallucinations: Auditory Delusions: Present (decreasing) Perceptual Disturbances: Derealization Thought Process: Rumination Thought Content: positive for Circumstantial Depressive Symptoms: Feelings of Guilt Judgement: Fair Diagnostics Vital Signs (24Hr): Vital Signs - 24 hr 11/07/23 20:00 11/07/23 21:08 11/08/23 08:16 Temperature 97.9 F 97.5 F Pulse Rate 87 56 Respiratory Rate 14 Blood Pressure 128/78 128/78 111/60 Pulse Oximetry 97 96 Oxygen Delivery Method Room Air Room Air BMI result Body Mass Index 28.8 Labs 10/20/23 08:47 10/20/23 08:47 Medications Medications Current Medications Acetaminophen (Acetaminophen 325 Mg Tablet) 650 mg PO Q6H PRN PRN Reason: Headache/Pain Mild Scale (1-3) Al Hydroxide/Mg Hydroxide (Magnesium Hydrox/Alum Hydrox 30 Ml Oral.Susp) 30 ml PO Q6H PRN PRN Reason: Heartburn/Nausea Albuterol Sulfate (Albuterol Sulfate 90 Mcg 8 Gm Inhaler) 2 puff INHALE Q4H PRN PRN Reason: Wheezing Divalproex Sodium (Divalproex Sodium Er 500 Mg Tab.Er.24h) 1,000 mg PO BEDTIME [facility] Last Admin: 11/07/23 21:12 Dose: 1,000 mg Famotidine (Famotidine 20 Mg Tablet) 20 mg PO BID [facility] Last Admin: 11/08/23 09:00 Dose: 20 mg Haloperidol (Haloperidol 5 Mg Tablet) 5 mg PO TID PRN PRN Reason: psychosis, agitation Last Admin: 10/24/23 15:07 Dose: 5 mg Haloperidol (Haloperidol 5 Mg Tablet) 5 mg PO BID [facility] Last Admin: 11/08/23 09:01 Dose: 5 mg Hydroxyzine HCl (Hydroxyzine Hcl 25 Mg Tablet) 25 mg PO Q6H PRN PRN Reason: Anxiety Last Admin: 11/03/23 15:13 Dose: 25 mg Lorazepam (Lorazepam 1 Mg Tablet) 2 mg PO Q4H PRN PRN Reason: severe agitation Last Admin: 10/24/23 20:30 Dose: 2 mg Magnesium Hydroxide (Milk Of Magnesia 30 Ml Oral.Susp) 30 ml PO DAILY PRN PRN Reason: Constipation Nicotine (Nicotine 21 Mg Patch.Td24) 21 mg TRANSDERMA DAILY PRN PRN Reason: Nicotine Cravings Nicotine Polacrilex (Nicotine Polacrilex 2 Mg Gum) 4 mg BUCCAL Q2H PRN PRN Reason: Nicotine Cravings Olanzapine (Olanzapine 5 Mg Tablet) 5 mg PO TID PRN PRN Reason: agitation Last Admin: 11/05/23 20:54 Dose: 5 mg Prazosin HCl (Prazosin Hcl 1 Mg Capsule) 2 mg PO BEDTIME [facility]; Protocol Last Admin: 11/07/23 21:08 Dose: 2 mg Trazodone HCl (Trazodone Hcl 50 Mg Tablet) 50 mg PO BEDTIME MRX1 PRN PRN Reason: Insomnia Last Admin: 11/07/23 21:12 Dose: 50 mg Allergies Allergies Allergy/AdvReac Type Severity Reaction Status Date / Time No Known Allergies Allergy Verified 10/19/23 11:16 [No Known Allergies*] Assessment & Plan Assessment & Plan (1) Acute psychosis: Status: Acute Code(s): F23 - Brief psychotic disorder (2) Bipolar 1 disorder with moderate horacio: Status: Acute Code(s): F31.12 - Bipolar disorder, current episode manic without psychotic features, moderate Plan 28 yo [place] male, malay speaking, with acute psychosis, bipolar disorder. Pt is reported to have gone to the [employer], made a gun gesture with his hands, asked for childrens names and stated, I todd, I kill. He is religiously preoccupied, telling CARE he is God and threatening to kill his ex , their three children and himself. Plan: Admit, CV, 15 minute checks Collateral contact Three day notice filed, plan to file Section 7. Depakote ER 500 mg HS Haldol 5 mg bid Haldol 5 mg tid prn Prepare for Haldol Decanoate injection if po Haldol is tolerated Lorazepam 2 mg q 4 hours prn Olanzapine 5 mg daily Olanzapine 5 mg tid prn Prazosin 2 mg hs Trazodone 50 mg hs prn, MR x1 10/21- Continue current tx 10/22: continue current management and treatment plan. 10/23: continue current management and treatment plan. 10/24: Increase Depakote ER to 1000 mg HS Increase Haldol to 10 mg bid 10/26: Haldol Dec 50 mg IM 10/27. Pt agrees. 10/27 patient received Haldol deck without issue; remains improved Diet changed to regular 10/28 Continue current tx. 10/30/2023: No changes 10/31/2023: No changes 11/02/23: Continue tx. 11/04/23: Valproate level 11/04 Decrease Haldol to 5 mg bid Haldol Dec IM due 11/1011/05/23 DC scheduled Olanzapine Valproate level 71.6 11/05: Haldol Dec on 11/10. Otherwise continue current management and treatment plan. 11/06: continue current management and treatment plan. 11/08/23: Continue tx. Discharge planning. Reason for continued inpatient stay Substantial Risk for: rapid decompensation Time Spent With Patient Time: Total time managing care of this patient today ____ minutes.
[2023-11-08 20:00] VITALS: BP 133/80; PULSE 86; RESP 16; TEMP 36.3; O2SAT 96
[2023-11-08] MEDS: Divalproex Sodium ER 500 MG TAB.ER.24H 1000 MG PO (21:04)
[2023-11-08] MEDS: Prazosin HCL 1 MG CAPSULE 2 MG PO (21:06)
[2023-11-09 08:00] VITALS: BP 139/68; PULSE 71; RESP 19; TEMP 36.6; O2SAT 97
[2023-11-09] MEDS: HaloperidoL 5 MG TABLET PO (08:35)
[2023-11-09] MEDS: Famotidine 20 MG TABLET PO ×2 (08:35→20:15)
--- NOTE | 2023-11-09 15:58 | HO.PSYCHPN ---
Subjective Subjective Date of Service: 11/09/23 Reason For Visit: bipolar disorder Subjective Notes: Section 7 Healthcare Proxy: No Guardianship: No Medical Problems Affecting Mental Status: No Interim History: Preparing for court ROLLY on 11/09. Spending time in room and in bed. More visable and interactive in the evening it appears. Tells team of nightmares last night Medication Compliance: Yes Side effects from medications: No Attending Groups: No Review of Systems Acute medical concerns: No Medical Review of Systems: unchanged Review of Systems Review of Systems Yes all other systems are reviewed and are negative Mental Status Exam Mental Status Exam Patient Appearance: Appropriate Patient Orientation: Person, Place and Situation Level of Consciousness: Alert Patient Behavior: Appropriate, Talkative, Cooperative and Good Eye Contact Mood Description: Flat Affect Description: Flat Patient Cognition Impaired: No Ability to Follow Directions: Good Speech Pattern: Spontaneous Speech Memory Description: Episodic Impaired Hallucinations: Auditory Delusions: Present (decreasing) Perceptual Disturbances: Derealization Thought Process: Rumination Thought Content: positive for Circumstantial Depressive Symptoms: Feelings of Guilt Judgement: Fair Diagnostics Vital Signs (24Hr): Vital Signs - 24 hr 11/08/23 20:00 11/09/23 08:00 Temperature 97.4 F 97.9 F Pulse Rate 86 71 Respiratory Rate 16 19 Blood Pressure 133/80 139/68 Pulse Oximetry 96 97 Oxygen Delivery Method Room Air Room Air BMI result Body Mass Index 28.8 Labs 10/20/23 08:47 10/20/23 08:47 Medications Medications Current Medications Acetaminophen (Acetaminophen 325 Mg Tablet) 650 mg PO Q6H PRN PRN Reason: Headache/Pain Mild Scale (1-3) Al Hydroxide/Mg Hydroxide (Magnesium Hydrox/Alum Hydrox 30 Ml Oral.Susp) 30 ml PO Q6H PRN PRN Reason: Heartburn/Nausea Albuterol Sulfate (Albuterol Sulfate 90 Mcg 8 Gm Inhaler) 2 puff INHALE Q4H PRN PRN Reason: Wheezing Divalproex Sodium (Divalproex Sodium Er 500 Mg Tab.Er.24h) 1,000 mg PO BEDTIME [facility] Last Admin: 11/08/23 21:04 Dose: 1,000 mg Famotidine (Famotidine 20 Mg Tablet) 20 mg PO BID [facility] Last Admin: 11/09/23 08:35 Dose: 20 mg Haloperidol (Haloperidol 5 Mg Tablet) 5 mg PO TID PRN PRN Reason: psychosis, agitation Last Admin: 10/24/23 15:07 Dose: 5 mg Haloperidol (Haloperidol 5 Mg Tablet) 5 mg PO BID [facility] Last Admin: 11/09/23 08:35 Dose: 5 mg Hydroxyzine HCl (Hydroxyzine Hcl 25 Mg Tablet) 25 mg PO Q6H PRN PRN Reason: Anxiety Last Admin: 11/03/23 15:13 Dose: 25 mg Lorazepam (Lorazepam 1 Mg Tablet) 2 mg PO Q4H PRN PRN Reason: severe agitation Last Admin: 10/24/23 20:30 Dose: 2 mg Magnesium Hydroxide (Milk Of Magnesia 30 Ml Oral.Susp) 30 ml PO DAILY PRN PRN Reason: Constipation Nicotine (Nicotine 21 Mg Patch.Td24) 21 mg TRANSDERMA DAILY PRN PRN Reason: Nicotine Cravings Nicotine Polacrilex (Nicotine Polacrilex 2 Mg Gum) 4 mg BUCCAL Q2H PRN PRN Reason: Nicotine Cravings Olanzapine (Olanzapine 5 Mg Tablet) 5 mg PO TID PRN PRN Reason: agitation Last Admin: 11/05/23 20:54 Dose: 5 mg Prazosin HCl (Prazosin Hcl 1 Mg Capsule) 2 mg PO BEDTIME [facility]; Protocol Last Admin: 11/08/23 21:06 Dose: 2 mg Trazodone HCl (Trazodone Hcl 50 Mg Tablet) 50 mg PO BEDTIME MRX1 PRN PRN Reason: Insomnia Last Admin: 11/07/23 21:12 Dose: 50 mg Allergies Allergies Allergy/AdvReac Type Severity Reaction Status Date / Time No Known Allergies Allergy Verified 10/19/23 11:16 [No Known Allergies*] Assessment & Plan Assessment & Plan (1) Acute psychosis: Status: Acute Code(s): F23 - Brief psychotic disorder (2) Bipolar 1 disorder with moderate horacio: Status: Acute Code(s): F31.12 - Bipolar disorder, current episode manic without psychotic features, moderate Plan 28 yo vin[place]ian male, hungarian speaking, with acute psychosis, bipolar disorder. Pt is reported to have gone to the [employer], made a gun gesture with his hands, asked for childrens names and stated, I todd, I kill. He is religiously preoccupied, telling CARE he is God and threatening to kill his ex , their three children and himself. Plan: Admit, CV, 15 minute checks Collateral contact Three day notice filed, plan to file Section 7. Depakote ER 500 mg HS Haldol 5 mg bid Haldol 5 mg tid prn Prepare for Haldol Decanoate injection if po Haldol is tolerated Lorazepam 2 mg q 4 hours prn Olanzapine 5 mg daily Olanzapine 5 mg tid prn Prazosin 2 mg hs Trazodone 50 mg hs prn, MR x1 10/21- Continue current tx 10/22: continue current management and treatment plan. 10/23: continue current management and treatment plan. 10/24: Increase Depakote ER to 1000 mg HS Increase Haldol to 10 mg bid 10/26: Haldol Dec 50 mg IM 10/27. Pt agrees. 10/27 patient received Haldol deck without issue; remains improved Diet changed to regular 10/28 Continue current tx. 10/30/2023: No changes 10/31/2023: No changes 11/02/23: Continue tx. 11/04/23: Valproate level 11/04 Decrease Haldol to 5 mg bid Haldol Dec IM due 11/1011/05/23 DC scheduled Olanzapine Valproate level 71.6 11/05: Haldol Dec on 11/10. Otherwise continue current management and treatment plan. 11/06: continue current management and treatment plan. 11/08: Pt reports nightmares last night. Will increase Prazosin to 3 mg HS. Decrease Haldol to 2.5 mg bid Haldol Dec 50 mg IM 11/11/23 Pt will have ROLLY on 11/09. Reason for continued inpatient stay Substantial Risk for: rapid decompensation Time Spent With Patient Time: Total time managing care of this patient today ____ minutes.
[2023-11-09 19:45] VITALS: BP 149/91; PULSE 82; RESP 18; TEMP 37.1; O2SAT 98
[2023-11-09 20:14] VITALS: BP 149/91
[2023-11-09] MEDS: Divalproex Sodium ER 500 MG TAB.ER.24H 1000 MG PO (20:14)
[2023-11-09] MEDS: Prazosin HCL 1 MG CAPSULE 3 MG PO (20:14)
[2023-11-09] MEDS: HaloperidoL 0.5 MG TABLET 2.5 MG PO (20:15)
[2023-11-10 08:00] VITALS: BP 118/61; PULSE 59; RESP 16; TEMP 36.4; O2SAT 97
[2023-11-10] MEDS: HaloperidoL 0.5 MG TABLET 2.5 MG PO ×2 (08:41→20:53)
[2023-11-10] MEDS: Famotidine 20 MG TABLET PO ×2 (08:41→20:52)
--- NOTE | 2023-11-10 13:18 | P.PNPSI_ITS ---
Subjective Subjective Date of Service: 11/10/23 Reason For Visit: bipolar disorder Subjective Notes: Section 7 Healthcare Proxy: No Guardianship: No Medical Problems Affecting Mental Status: No Interim History: Pt able to meet with his legal team and participate in an ROLLY today. Reports nightmares continue. Will keep Prazosin at 3 mg as we did for 11/08. Agrees that we should continue to increase Valproate to help with mood sx. Overall, reports feeling well. Talking of discharge planning and where he finds the most supports. He tells team in the [place] and tells tw both with extended family in [place] and Medication Compliance: Yes Side effects from medications: No Attending Groups: No Review of Systems Acute medical concerns: No Review of Systems Review of Systems Yes all other systems are reviewed and are negative Mental Status Exam Mental Status Exam Patient Appearance: Appropriate Patient Orientation: Person, Place and Situation Level of Consciousness: Alert Patient Behavior: Appropriate, Talkative, Cooperative and Good Eye Contact Mood Description: Flat Affect Description: Flat Patient Cognition Impaired: No Ability to Follow Directions: Good Speech Pattern: Spontaneous Speech Memory Description: Episodic Impaired Hallucinations: Auditory Delusions: Present (decreasing) Perceptual Disturbances: Derealization Thought Process: Rumination Thought Content: positive for Circumstantial Depressive Symptoms: Feelings of Guilt Judgement: Fair Diagnostics Vital Signs (24Hr): Vital Signs - 24 hr 11/09/23 19:45 11/09/23 20:14 11/10/23 08:00 Temperature 98.8 F 97.5 F Pulse Rate 82 59 Respiratory Rate 18 16 Blood Pressure 149/91 H 149/91 H 118/61 Pulse Oximetry 98 97 Oxygen Delivery Method Room Air Room Air BMI result Body Mass Index 28.8 Labs 10/20/23 08:47 10/20/23 08:47 Medications Medications Current Medications Acetaminophen (Acetaminophen 325 Mg Tablet) 650 mg PO Q6H PRN PRN Reason: Headache/Pain Mild Scale (1-3) Al Hydroxide/Mg Hydroxide (Magnesium Hydrox/Alum Hydrox 30 Ml Oral.Susp) 30 ml PO Q6H PRN PRN Reason: Heartburn/Nausea Albuterol Sulfate (Albuterol Sulfate 90 Mcg 8 Gm Inhaler) 2 puff INHALE Q4H PRN PRN Reason: Wheezing Divalproex Sodium (Divalproex Sodium Er 500 Mg Tab.Er.24h) 1,000 mg PO BEDTIME [facility] Last Admin: 11/09/23 20:14 Dose: 1,000 mg Famotidine (Famotidine 20 Mg Tablet) 20 mg PO BID [facility] Last Admin: 11/10/23 08:41 Dose: 20 mg Haloperidol (Haloperidol 5 Mg Tablet) 5 mg PO TID PRN PRN Reason: psychosis, agitation Last Admin: 10/24/23 15:07 Dose: 5 mg Haloperidol (Haloperidol 0.5 Mg Tablet) 2.5 mg PO BID [facility] Last Admin: 11/10/23 08:41 Dose: 2.5 mg Haloperidol Decanoate (Haloperidol Decanoate 50 Mg/Ml Vial) 50 mg IM ONCE ONE Stop: 11/11/23 09:01 Hydroxyzine HCl (Hydroxyzine Hcl 25 Mg Tablet) 25 mg PO Q6H PRN PRN Reason: Anxiety Last Admin: 11/03/23 15:13 Dose: 25 mg Lorazepam (Lorazepam 1 Mg Tablet) 2 mg PO Q4H PRN PRN Reason: severe agitation Last Admin: 10/24/23 20:30 Dose: 2 mg Magnesium Hydroxide (Milk Of Magnesia 30 Ml Oral.Susp) 30 ml PO DAILY PRN PRN Reason: Constipation Nicotine (Nicotine 21 Mg Patch.Td24) 21 mg TRANSDERMA DAILY PRN PRN Reason: Nicotine Cravings Nicotine Polacrilex (Nicotine Polacrilex 2 Mg Gum) 4 mg BUCCAL Q2H PRN PRN Reason: Nicotine Cravings Olanzapine (Olanzapine 5 Mg Tablet) 5 mg PO TID PRN PRN Reason: agitation Last Admin: 11/05/23 20:54 Dose: 5 mg Prazosin HCl (Prazosin Hcl 1 Mg Capsule) 3 mg PO BEDTIME [facility]; Protocol Last Admin: 11/09/23 20:14 Dose: 3 mg Trazodone HCl (Trazodone Hcl 50 Mg Tablet) 50 mg PO BEDTIME MRX1 PRN PRN Reason: Insomnia Last Admin: 11/07/23 21:12 Dose: 50 mg Allergies Allergies Allergy/AdvReac Type Severity Reaction Status Date / Time No Known Allergies Allergy Verified 10/19/23 11:16 [No Known Allergies*] Assessment & Plan Assessment & Plan (1) Acute psychosis: Status: Acute Code(s): F23 - Brief psychotic disorder (2) Bipolar 1 disorder with moderate horacio: Status: Acute Code(s): F31.12 - Bipolar disorder, current episode manic without psychotic features, moderate Plan 28 yo [place]ian male, turkmen speaking, with acute psychosis, bipolar disorder. Pt is reported to have gone to the [employer], made a gun gesture with his hands, asked for childrens names and stated, I todd, I kill. He is religiously preoccupied, telling CARE he is God and threatening to kill his ex , their three children and himself. Plan: Admit, CV, 15 minute checks Collateral contact Three day notice filed, plan to file Section 7. Depakote ER 500 mg HS Haldol 5 mg bid Haldol 5 mg tid prn Prepare for Haldol Decanoate injection if po Haldol is tolerated Lorazepam 2 mg q 4 hours prn Olanzapine 5 mg daily Olanzapine 5 mg tid prn Prazosin 2 mg hs Trazodone 50 mg hs prn, MR x1 10/21- Continue current tx 10/22: continue current management and treatment plan. 10/23: continue current management and treatment plan. 10/24: Increase Depakote ER to 1000 mg HS Increase Haldol to 10 mg bid 10/26: Haldol Dec 50 mg IM 10/27. Pt agrees. 10/27 patient received Haldol deck without issue; remains improved Diet changed to regular 10/28 Continue current tx. 10/30/2023: No changes 10/31/2023: No changes 11/02/23: Continue tx. 11/04/23: Valproate level 11/04 Decrease Haldol to 5 mg bid Haldol Dec IM due 11/1011/05/23 DC scheduled Olanzapine Valproate level 71.6 11/05: Haldol Dec on 11/10. Otherwise continue current management and treatment plan. 11/06: continue current management and treatment plan. 11/08: Pt reports nightmares last night. Will increase Prazosin to 3 mg HS. Decrease Haldol to 2.5 mg bid Haldol Dec 50 mg IM 11/11/23 Pt will have ROLLY on 11/09. 11/09: Increase Depakote to 500 mg ER a.m. Continue HS dosing Reason for continued inpatient stay Substantial Risk for: rapid decompensation Time Spent With Patient Time: Total time managing care of this patient today ____ minutes.
[2023-11-10 20:00] VITALS: BP 133/75; PULSE 73; RESP 18; TEMP 36.8; O2SAT 98
[2023-11-10] MEDS: Divalproex Sodium ER 500 MG TAB.ER.24H 1000 MG PO (20:52)
[2023-11-10] MEDS: Prazosin HCL 1 MG CAPSULE 3 MG PO (20:52)
[2023-11-10] MEDS: traZODone HCL 50 MG TABLET PO (20:53)
[2023-11-11 08:00] VITALS: BP 97/62; PULSE 60; RESP 16; TEMP 36.9; O2SAT 97
[2023-11-11] MEDS: HaloperidoL 0.5 MG TABLET 2.5 MG PO ×2 (09:12→21:54)
[2023-11-11] MEDS: Divalproex Sodium ER 500 MG TAB.ER.24H PO (09:12)
[2023-11-11] MEDS: Famotidine 20 MG TABLET PO ×2 (09:13→21:56)
[2023-11-11] MEDS: Haloperidol Decanoate 50 MG/ML VIAL IM (10:19)
[2023-11-11 15:11] VITALS: BMI 28.3
--- NOTE | 2023-11-11 15:15 | P.PNPSI_ITS ---
Subjective Subjective Date of Service: 11/11/23 Reason For Visit: bipolar disorder Subjective Notes: Section 7 Healthcare Proxy: No Guardianship: No Medical Problems Affecting Mental Status: No Interim History: German received his second Haldol Dec 50 mg injection today without adverse effect. He was more visable this afternoon as he was assisting a new peer, who speaks Indonesian and was helping him orient to the milieu. He denies current symptoms, reports he feels well, yet is missing his children. Medication Compliance: Yes Side effects from medications: No Attending Groups: No Review of Systems Acute medical concerns: No Medical Review of Systems: unchanged Review of Systems Review of Systems Yes all other systems are reviewed and are negative Mental Status Exam Mental Status Exam Patient Appearance: Appropriate Patient Orientation: Person, Place and Situation Level of Consciousness: Alert Patient Behavior: Appropriate, Talkative, Cooperative and Good Eye Contact Mood Description: Flat Affect Description: Flat Patient Cognition Impaired: No Ability to Follow Directions: Good Speech Pattern: Spontaneous Speech Memory Description: Episodic Impaired Hallucinations: Auditory Delusions: Present (decreasing) Perceptual Disturbances: Derealization Thought Process: Rumination Thought Content: positive for Circumstantial Depressive Symptoms: Feelings of Guilt Judgement: Fair Diagnostics Vital Signs (24Hr): Vital Signs - 24 hr 11/10/23 20:00 11/11/23 08:00 Temperature 98.2 F 98.5 F Pulse Rate 73 60 Respiratory Rate 18 16 Blood Pressure 133/75 97/62 Pulse Oximetry 98 97 Oxygen Delivery Method Room Air Room Air BMI result Body Mass Index 28.3 Labs 10/20/23 08:47 10/20/23 08:47 Medications Medications Current Medications Acetaminophen (Acetaminophen 325 Mg Tablet) 650 mg PO Q6H PRN PRN Reason: Headache/Pain Mild Scale (1-3) Al Hydroxide/Mg Hydroxide (Magnesium Hydrox/Alum Hydrox 30 Ml Oral.Susp) 30 ml PO Q6H PRN PRN Reason: Heartburn/Nausea Albuterol Sulfate (Albuterol Sulfate 90 Mcg 8 Gm Inhaler) 2 puff INHALE Q4H PRN PRN Reason: Wheezing Divalproex Sodium (Divalproex Sodium Er 500 Mg Tab.Er.24h) 1,000 mg PO BEDTIME WEN Last Admin: 11/10/23 20:52 Dose: 1,000 mg Divalproex Sodium (Divalproex Sodium Er 500 Mg Tab.Er.24h) 500 mg PO DAILY WEN Last Admin: 11/11/23 09:12 Dose: 500 mg Famotidine (Famotidine 20 Mg Tablet) 20 mg PO BID WEN Last Admin: 11/11/23 09:13 Dose: 20 mg Haloperidol (Haloperidol 5 Mg Tablet) 5 mg PO TID PRN PRN Reason: psychosis, agitation Last Admin: 10/24/23 15:07 Dose: 5 mg Haloperidol (Haloperidol 0.5 Mg Tablet) 2.5 mg PO BID WEN Last Admin: 11/11/23 09:12 Dose: 2.5 mg Hydroxyzine HCl (Hydroxyzine Hcl 25 Mg Tablet) 25 mg PO Q6H PRN PRN Reason: Anxiety Last Admin: 11/03/23 15:13 Dose: 25 mg Lorazepam (Lorazepam 1 Mg Tablet) 2 mg PO Q4H PRN PRN Reason: severe agitation Last Admin: 10/24/23 20:30 Dose: 2 mg Magnesium Hydroxide (Milk Of Magnesia 30 Ml Oral.Susp) 30 ml PO DAILY PRN PRN Reason: Constipation Nicotine (Nicotine 21 Mg Patch.Td24) 21 mg TRANSDERMA DAILY PRN PRN Reason: Nicotine Cravings Nicotine Polacrilex (Nicotine Polacrilex 2 Mg Gum) 4 mg BUCCAL Q2H PRN PRN Reason: Nicotine Cravings Olanzapine (Olanzapine 5 Mg Tablet) 5 mg PO TID PRN PRN Reason: agitation Last Admin: 11/05/23 20:54 Dose: 5 mg Prazosin HCl (Prazosin Hcl 1 Mg Capsule) 3 mg PO BEDTIME WEN; Protocol Last Admin: 11/10/23 20:52 Dose: 3 mg Trazodone HCl (Trazodone Hcl 50 Mg Tablet) 50 mg PO BEDTIME MRX1 PRN PRN Reason: Insomnia Last Admin: 11/10/23 20:53 Dose: 50 mg Allergies Allergies Allergy/AdvReac Type Severity Reaction Status Date / Time No Known Allergies Allergy Verified 10/19/23 11:16 [No Known Allergies*] Assessment & Plan Assessment & Plan (1) Acute psychosis: Status: Acute Code(s): F23 - Brief psychotic disorder (2) Bipolar 1 disorder with moderate horacio: Status: Acute Code(s): F31.12 - Bipolar disorder, current episode manic without psychotic features, moderate Plan 28 yo citizen of [place] male, sudanese speaking, with acute psychosis, bipolar disorder. Pt is reported to have gone to the [employer], made a gun gesture with his hands, asked for childrens names and stated, I todd, I kill. He is religiously preoccupied, telling CARE he is God and threatening to kill his ex , their three children and himself. Plan: Admit, CV, 15 minute checks Collateral contact Three day notice filed, plan to file Section 7. Depakote ER 500 mg HS Haldol 5 mg bid Haldol 5 mg tid prn Prepare for Haldol Decanoate injection if po Haldol is tolerated Lorazepam 2 mg q 4 hours prn Olanzapine 5 mg daily Olanzapine 5 mg tid prn Prazosin 2 mg hs Trazodone 50 mg hs prn, MR x1 10/21- Continue current tx 10/22: continue current management and treatment plan. 10/23: continue current management and treatment plan. 10/24: Increase Depakote ER to 1000 mg HS Increase Haldol to 10 mg bid 10/26: Haldol Dec 50 mg IM 10/27. Pt agrees. 10/27 patient received Haldol deck without issue; remains improved Diet changed to regular 10/28 Continue current tx. 10/30/2023: No changes 10/31/2023: No changes 11/02/23: Continue tx. 11/04/23: Valproate level 11/04 Decrease Haldol to 5 mg bid Haldol Dec IM due 11/1011/05/23 DC scheduled Olanzapine Valproate level 71.6 11/05: Haldol Dec on 11/10. Otherwise continue current management and treatment plan. 11/06: continue current management and treatment plan. 11/08: Pt reports nightmares last night. Will increase Prazosin to 3 mg HS. Decrease Haldol to 2.5 mg bid Haldol Dec 50 mg IM 11/11/23 Pt will have ROLLY on 11/09. 11/09: Increase Depakote to 500 mg ER a.m. Continue HS dosing 11/10: Continue treatment Reason for continued inpatient stay Substantial Risk for: rapid decompensation Time Spent With Patient Time: Total time managing care of this patient today ____ minutes.
[2023-11-11 20:00] VITALS: BP 124/76; PULSE 64; RESP 18; TEMP 36.6; O2SAT 97
[2023-11-11 21:53] VITALS: BP 124/76
[2023-11-11] MEDS: Prazosin HCL 1 MG CAPSULE 3 MG PO (21:53)
[2023-11-11] MEDS: Divalproex Sodium ER 500 MG TAB.ER.24H 1000 MG PO (21:54)
[2023-11-11] MEDS: HaloperidoL 5 MG TABLET PO (21:58)
[2023-11-12 08:00] VITALS: BP 97/53; PULSE 71; RESP 18; TEMP 37; O2SAT 96
[2023-11-12] MEDS: HaloperidoL 0.5 MG TABLET 2.5 MG PO ×2 (09:45→21:33)
[2023-11-12] MEDS: Famotidine 20 MG TABLET PO ×2 (09:45→21:37)
[2023-11-12] MEDS: Divalproex Sodium ER 500 MG TAB.ER.24H PO (09:45)
--- NOTE | 2023-11-12 10:13 | P.PNPSI_ITS ---
Subjective Subjective Date of Service: 11/12/23 Reason For Visit: bipolar disorder Subjective Notes: Section 7 Healthcare Proxy: No Guardianship: No Medical Problems Affecting Mental Status: No Interim History: Spending time in room. In the milieu later in the day, continues to offer assist to a peer who is new to the unit. Attempting to talk in Faroese and is impressive in his attempts. Reports feeling well, denies SI/HI/AH,VH. Some post injection fatigue, reports he slept for 9 hours last night. Medication Compliance: Yes Side effects from medications: No Attending Groups: No Review of Systems Acute medical concerns: No Medical Review of Systems: unchanged Review of Systems Review of Systems Yes all other systems are reviewed and are negative Mental Status Exam Mental Status Exam Patient Appearance: Appropriate Patient Orientation: Person, Place and Situation Level of Consciousness: Alert Patient Behavior: Appropriate, Talkative, Cooperative and Good Eye Contact Mood Description: Flat Affect Description: Flat Patient Cognition Impaired: No Ability to Follow Directions: Good Speech Pattern: Spontaneous Speech Memory Description: Episodic Impaired Hallucinations: Auditory Perceptual Disturbances: Derealization Thought Process: Rumination Thought Content: positive for Circumstantial Depressive Symptoms: Feelings of Guilt Judgement: Fair Diagnostics Vital Signs (24Hr): Vital Signs - 24 hr 11/11/23 20:00 11/11/23 21:53 11/12/23 08:00 Temperature 98 F 98.6 F Pulse Rate 64 71 Respiratory Rate 18 18 Blood Pressure 124/76 124/76 97/53 L Pulse Oximetry 97 96 Oxygen Delivery Method Room Air Room Air BMI result Body Mass Index 28.3 Labs 10/20/23 08:47 10/20/23 08:47 Medications Medications Current Medications Acetaminophen (Acetaminophen 325 Mg Tablet) 650 mg PO Q6H PRN PRN Reason: Headache/Pain Mild Scale (1-3) Al Hydroxide/Mg Hydroxide (Magnesium Hydrox/Alum Hydrox 30 Ml Oral.Susp) 30 ml PO Q6H PRN PRN Reason: Heartburn/Nausea Albuterol Sulfate (Albuterol Sulfate 90 Mcg 8 Gm Inhaler) 2 puff INHALE Q4H PRN PRN Reason: Wheezing Divalproex Sodium (Divalproex Sodium Er 500 Mg Tab.Er.24h) 1,000 mg PO BEDTIME WEN Last Admin: 11/11/23 21:54 Dose: 1,000 mg Divalproex Sodium (Divalproex Sodium Er 500 Mg Tab.Er.24h) 500 mg PO DAILY WEN Last Admin: 11/12/23 09:45 Dose: 500 mg Famotidine (Famotidine 20 Mg Tablet) 20 mg PO BID WEN Last Admin: 11/12/23 09:45 Dose: 20 mg Haloperidol (Haloperidol 5 Mg Tablet) 5 mg PO TID PRN PRN Reason: psychosis, agitation Last Admin: 11/11/23 21:58 Dose: 5 mg Haloperidol (Haloperidol 0.5 Mg Tablet) 2.5 mg PO BID WEN Last Admin: 11/12/23 09:45 Dose: 2.5 mg Hydroxyzine HCl (Hydroxyzine Hcl 25 Mg Tablet) 25 mg PO Q6H PRN PRN Reason: Anxiety Last Admin: 11/03/23 15:13 Dose: 25 mg Lorazepam (Lorazepam 1 Mg Tablet) 2 mg PO Q4H PRN PRN Reason: severe agitation Last Admin: 10/24/23 20:30 Dose: 2 mg Magnesium Hydroxide (Milk Of Magnesia 30 Ml Oral.Susp) 30 ml PO DAILY PRN PRN Reason: Constipation Nicotine (Nicotine 21 Mg Patch.Td24) 21 mg TRANSDERMA DAILY PRN PRN Reason: Nicotine Cravings Nicotine Polacrilex (Nicotine Polacrilex 2 Mg Gum) 4 mg BUCCAL Q2H PRN PRN Reason: Nicotine Cravings Olanzapine (Olanzapine 5 Mg Tablet) 5 mg PO TID PRN PRN Reason: agitation Last Admin: 11/05/23 20:54 Dose: 5 mg Prazosin HCl (Prazosin Hcl 1 Mg Capsule) 3 mg PO BEDTIME [facility]; Protocol Last Admin: 11/11/23 21:53 Dose: 3 mg Trazodone HCl (Trazodone Hcl 50 Mg Tablet) 50 mg PO BEDTIME MRX1 PRN PRN Reason: Insomnia Last Admin: 11/10/23 20:53 Dose: 50 mg Allergies Allergies Allergy/AdvReac Type Severity Reaction Status Date / Time No Known Allergies Allergy Verified 10/19/23 11:16 [No Known Allergies*] Assessment & Plan Assessment & Plan (1) Acute psychosis: Status: Acute Code(s): F23 - Brief psychotic disorder (2) Bipolar 1 disorder with moderate horacio: Status: Acute Code(s): F31.12 - Bipolar disorder, current episode manic without psychotic features, moderate Plan 28 yo martin male, urdu speaking, with acute psychosis, bipolar disorder. Pt is reported to have gone to the [employer], made a gun gesture with his hands, asked for childrens names and stated, I todd, I kill. He is religiously preoccupied, telling CARE he is God and threatening to kill his ex , their three children and himself. Plan: Admit, CV, 15 minute checks Collateral contact Three day notice filed, plan to file Section 7. Depakote ER 500 mg HS Haldol 5 mg bid Haldol 5 mg tid prn Prepare for Haldol Decanoate injection if po Haldol is tolerated Lorazepam 2 mg q 4 hours prn Olanzapine 5 mg daily Olanzapine 5 mg tid prn Prazosin 2 mg hs Trazodone 50 mg hs prn, MR x1 10/21- Continue current tx 10/22: continue current management and treatment plan. 10/23: continue current management and treatment plan. 10/24: Increase Depakote ER to 1000 mg HS Increase Haldol to 10 mg bid 10/26: Haldol Dec 50 mg IM 10/27. Pt agrees. 10/27 patient received Haldol deck without issue; remains improved Diet changed to regular 10/28 Continue current tx. 10/30/2023: No changes 10/31/2023: No changes 11/02/23: Continue tx. 11/04/23: Valproate level 11/04 Decrease Haldol to 5 mg bid Haldol Dec IM due 11/1011/05/23 DC scheduled Olanzapine Valproate level 71.6 11/05: Haldol Dec on 11/10. Otherwise continue current management and treatment plan. 11/06: continue current management and treatment plan. 11/08: Pt reports nightmares last night. Will increase Prazosin to 3 mg HS. Decrease Haldol to 2.5 mg bid Haldol Dec 50 mg IM 11/11/23 Pt will have ROLLY on 11/09. 11/09: Increase Depakote to 500 mg ER a.m. Continue HS dosing 11/11: Continue tx Reason for continued inpatient stay Substantial Risk for: rapid decompensation Time Spent With Patient Time: Total time managing care of this patient today ____ minutes.
[2023-11-12 20:00] VITALS: BP 124/81; PULSE 72; TEMP 37; O2SAT 98
[2023-11-12 21:30] VITALS: BP 121/79; PULSE 75; TEMP 36.7
[2023-11-12] MEDS: Divalproex Sodium ER 500 MG TAB.ER.24H 1000 MG PO (21:34)
[2023-11-12] MEDS: traZODone HCL 50 MG TABLET PO (21:34)
[2023-11-12 21:36] VITALS: BP 121/79
[2023-11-12] MEDS: Prazosin HCL 1 MG CAPSULE 3 MG PO (21:36)
[2023-11-13 08:00] VITALS: BP 111/61; PULSE 55; RESP 16; TEMP 36.4; O2SAT 96
--- NOTE | 2023-11-13 08:54 | HO.PSYCHPN ---
Subjective Subjective Date of Service: 11/13/23 Reason For Visit: bipolar disorder Subjective Notes: Section 7 Healthcare Proxy: No Guardianship: No Medical Problems Affecting Mental Status: No Interim History: Reports feeling well. Supportive to a fellow peer in distress. Visable, with peers, quiet. Denies sx of distress Denies SI/HI/AH/VH Medication Compliance: Yes Side effects from medications: No Attending Groups: Intermittent Review of Systems Acute medical concerns: No Medical Review of Systems: unchanged Review of Systems Review of Systems Yes all other systems are reviewed and are negative (denies) Mental Status Exam Mental Status Exam Patient Appearance: Appropriate Patient Orientation: Person, Place and Situation Level of Consciousness: Alert Patient Behavior: Appropriate, Talkative, Cooperative and Good Eye Contact Mood Description: Flat Affect Description: Flat Patient Cognition Impaired: No Ability to Follow Directions: Good Speech Pattern: Spontaneous Speech Memory Description: Episodic Impaired Hallucinations: None Delusions: Not Present Perceptual Disturbances: Derealization Thought Process: Rumination Thought Content: positive for Circumstantial Depressive Symptoms: Feelings of Guilt Judgement: Fair Diagnostics Vital Signs (24Hr): Vital Signs - 24 hr 11/12/23 20:00 11/12/23 21:30 11/12/23 21:36 Temperature 98.6 F 98.1 F Pulse Rate 72 75 Blood Pressure 124/81 121/79 121/79 Pulse Oximetry 98 Oxygen Delivery Method Room Air BMI result Body Mass Index 28.3 Labs 10/20/23 08:47 10/20/23 08:47 Medications Medications Current Medications Acetaminophen (Acetaminophen 325 Mg Tablet) 650 mg PO Q6H PRN PRN Reason: Headache/Pain Mild Scale (1-3) Al Hydroxide/Mg Hydroxide (Magnesium Hydrox/Alum Hydrox 30 Ml Oral.Susp) 30 ml PO Q6H PRN PRN Reason: Heartburn/Nausea Albuterol Sulfate (Albuterol Sulfate 90 Mcg 8 Gm Inhaler) 2 puff INHALE Q4H PRN PRN Reason: Wheezing Divalproex Sodium (Divalproex Sodium Er 500 Mg Tab.Er.24h) 1,000 mg PO BEDTIME [facility] Last Admin: 11/12/23 21:34 Dose: 1,000 mg Divalproex Sodium (Divalproex Sodium Er 500 Mg Tab.Er.24h) 500 mg PO DAILY [facility] Last Admin: 11/12/23 09:45 Dose: 500 mg Famotidine (Famotidine 20 Mg Tablet) 20 mg PO BID WEN Last Admin: 11/12/23 21:37 Dose: 20 mg Haloperidol (Haloperidol 5 Mg Tablet) 5 mg PO TID PRN PRN Reason: psychosis, agitation Last Admin: 11/11/23 21:58 Dose: 5 mg Haloperidol (Haloperidol 0.5 Mg Tablet) 2.5 mg PO BID WEN Last Admin: 11/12/23 21:33 Dose: 2.5 mg Hydroxyzine HCl (Hydroxyzine Hcl 25 Mg Tablet) 25 mg PO Q6H PRN PRN Reason: Anxiety Last Admin: 11/03/23 15:13 Dose: 25 mg Lorazepam (Lorazepam 1 Mg Tablet) 2 mg PO Q4H PRN PRN Reason: severe agitation Last Admin: 10/24/23 20:30 Dose: 2 mg Magnesium Hydroxide (Milk Of Magnesia 30 Ml Oral.Susp) 30 ml PO DAILY PRN PRN Reason: Constipation Nicotine (Nicotine 21 Mg Patch.Td24) 21 mg TRANSDERMA DAILY PRN PRN Reason: Nicotine Cravings Nicotine Polacrilex (Nicotine Polacrilex 2 Mg Gum) 4 mg BUCCAL Q2H PRN PRN Reason: Nicotine Cravings Olanzapine (Olanzapine 5 Mg Tablet) 5 mg PO TID PRN PRN Reason: agitation Last Admin: 11/05/23 20:54 Dose: 5 mg Prazosin HCl (Prazosin Hcl 1 Mg Capsule) 3 mg PO BEDTIME WEN; Protocol Last Admin: 11/12/23 21:36 Dose: 3 mg Trazodone HCl (Trazodone Hcl 50 Mg Tablet) 50 mg PO BEDTIME MRX1 PRN PRN Reason: Insomnia Last Admin: 11/12/23 21:34 Dose: 50 mg Allergies Allergies Allergy/AdvReac Type Severity Reaction Status Date / Time No Known Allergies Allergy Verified 10/19/23 11:16 [No Known Allergies*] Assessment & Plan Assessment & Plan (1) Acute psychosis: Status: Acute Code(s): F23 - Brief psychotic disorder (2) Bipolar 1 disorder with moderate horacio: Status: Acute Code(s): F31.12 - Bipolar disorder, current episode manic without psychotic features, moderate Plan 28 yo martin male, turkish speaking, with acute psychosis, bipolar disorder. Pt is reported to have gone to the [employer], made a gun gesture with his hands, asked for childrens names and stated, I todd, I kill. He is religiously preoccupied, telling CARE he is God and threatening to kill his ex , their three children and himself. Plan: Admit, CV, 15 minute checks Collateral contact Three day notice filed, plan to file Section 7. Depakote ER 500 mg HS Haldol 5 mg bid Haldol 5 mg tid prn Prepare for Haldol Decanoate injection if po Haldol is tolerated Lorazepam 2 mg q 4 hours prn Olanzapine 5 mg daily Olanzapine 5 mg tid prn Prazosin 2 mg hs Trazodone 50 mg hs prn, MR x1 10/21- Continue current tx 10/22: continue current management and treatment plan. 10/23: continue current management and treatment plan. 10/24: Increase Depakote ER to 1000 mg HS Increase Haldol to 10 mg bid 10/26: Haldol Dec 50 mg IM 10/27. Pt agrees. 10/27 patient received Haldol deck without issue; remains improved Diet changed to regular 10/28 Continue current tx. 10/30/2023: No changes 10/31/2023: No changes 11/02/23: Continue tx. 11/04/23: Valproate level 11/04 Decrease Haldol to 5 mg bid Haldol Dec IM due 11/1011/05/23 DC scheduled Olanzapine Valproate level 71.6 11/05: Haldol Dec on 11/10. Otherwise continue current management and treatment plan. 11/06: continue current management and treatment plan. 11/08: Pt reports nightmares last night. Will increase Prazosin to 3 mg HS. Decrease Haldol to 2.5 mg bid Haldol Dec 50 mg IM 11/11/23 Pt will have RLOLY on 11/09. 11/09: Increase Depakote to 500 mg ER a.m. Continue HS dosing 11/11: Continue tx 11/12: Continue tx. DC Planning. Reason for continued inpatient stay Substantial Risk for: rapid decompensation Time Spent With Patient Time: Total time managing care of this patient today ____ minutes.
[2023-11-13] MEDS: HaloperidoL 0.5 MG TABLET 2.5 MG PO ×2 (10:20→20:42)
[2023-11-13] MEDS: Famotidine 20 MG TABLET PO ×2 (10:20→20:46)
[2023-11-13] MEDS: Divalproex Sodium ER 500 MG TAB.ER.24H PO (10:21)
[2023-11-13 20:00] VITALS: BP 113/70; PULSE 76; TEMP 36.6
[2023-11-13 20:44] VITALS: BP 113/70
[2023-11-13] MEDS: Prazosin HCL 1 MG CAPSULE 3 MG PO (20:44)
[2023-11-13] MEDS: Divalproex Sodium ER 500 MG TAB.ER.24H 1000 MG PO (20:46)
[2023-11-13] MEDS: traZODone HCL 50 MG TABLET PO (20:46)
[2023-11-14 08:00] VITALS: BP 105/57; PULSE 64; RESP 18; TEMP 36.9; O2SAT 97
[2023-11-14] MEDS: Divalproex Sodium ER 500 MG TAB.ER.24H PO (08:33)
[2023-11-14] MEDS: HaloperidoL 0.5 MG TABLET 2.5 MG PO ×2 (08:33→20:43)
[2023-11-14] MEDS: Famotidine 20 MG TABLET PO ×2 (08:33→20:44)
--- NOTE | 2023-11-14 12:38 | HO.PSYCHPN ---
Subjective Subjective Date of Service: 11/14/23 Reason For Visit: bipolar disorder Subjective Notes: Section 7 Healthcare Proxy: No Guardianship: No Medical Problems Affecting Mental Status: No Interim History: Intermittently in milieu Again supportive of a peer who speaks Bahamian and who has experienced distress. Denies current concerns, issues Agrees to discharge planning for this week, planning to stay with mother in law and will probably return to family of origin in the [facility] [place]. Medication Compliance: Yes Side effects from medications: No Attending Groups: No Review of Systems Acute medical concerns: No Medical Review of Systems: unchanged Review of Systems Review of Systems Yes all other systems are reviewed and are negative (denies) Mental Status Exam Mental Status Exam Patient Appearance: Appropriate Patient Orientation: Person, Place and Situation Level of Consciousness: Alert Patient Behavior: Appropriate, Talkative, Cooperative and Good Eye Contact Mood Description: Flat Affect Description: Flat Patient Cognition Impaired: No Ability to Follow Directions: Good Speech Pattern: Spontaneous Speech Memory Description: Episodic Impaired Hallucinations: None Delusions: Not Present Perceptual Disturbances: Derealization Thought Process: Rumination Thought Content: positive for Circumstantial Depressive Symptoms: Feelings of Guilt Judgement: Fair Diagnostics Vital Signs (24Hr): Vital Signs - 24 hr 11/13/23 20:00 11/13/23 20:44 11/14/23 08:00 Temperature 97.9 F 98.4 F Pulse Rate 76 64 Respiratory Rate 18 Blood Pressure 113/70 113/70 105/57 L Pulse Oximetry 97 Oxygen Delivery Method Room Air BMI result Body Mass Index 28.3 Labs 10/20/23 08:47 10/20/23 08:47 Medications Medications Current Medications Acetaminophen (Acetaminophen 325 Mg Tablet) 650 mg PO Q6H PRN PRN Reason: Headache/Pain Mild Scale (1-3) Al Hydroxide/Mg Hydroxide (Magnesium Hydrox/Alum Hydrox 30 Ml Oral.Susp) 30 ml PO Q6H PRN PRN Reason: Heartburn/Nausea Albuterol Sulfate (Albuterol Sulfate 90 Mcg 8 Gm Inhaler) 2 puff INHALE Q4H PRN PRN Reason: Wheezing Divalproex Sodium (Divalproex Sodium Er 500 Mg Tab.Er.24h) 1,000 mg PO BEDTIME WEN Last Admin: 11/13/23 20:46 Dose: 1,000 mg Divalproex Sodium (Divalproex Sodium Er 500 Mg Tab.Er.24h) 500 mg PO DAILY WEN Last Admin: 11/14/23 08:33 Dose: 500 mg Famotidine (Famotidine 20 Mg Tablet) 20 mg PO BID WEN Last Admin: 11/14/23 08:33 Dose: 20 mg Haloperidol (Haloperidol 5 Mg Tablet) 5 mg PO TID PRN PRN Reason: psychosis, agitation Last Admin: 11/11/23 21:58 Dose: 5 mg Haloperidol (Haloperidol 0.5 Mg Tablet) 2.5 mg PO BID WEN Last Admin: 11/14/23 08:33 Dose: 2.5 mg Hydroxyzine HCl (Hydroxyzine Hcl 25 Mg Tablet) 25 mg PO Q6H PRN PRN Reason: Anxiety Last Admin: 11/03/23 15:13 Dose: 25 mg Lorazepam (Lorazepam 1 Mg Tablet) 2 mg PO Q4H PRN PRN Reason: severe agitation Last Admin: 10/24/23 20:30 Dose: 2 mg Magnesium Hydroxide (Milk Of Magnesia 30 Ml Oral.Susp) 30 ml PO DAILY PRN PRN Reason: Constipation Nicotine (Nicotine 21 Mg Patch.Td24) 21 mg TRANSDERMA DAILY PRN PRN Reason: Nicotine Cravings Nicotine Polacrilex (Nicotine Polacrilex 2 Mg Gum) 4 mg BUCCAL Q2H PRN PRN Reason: Nicotine Cravings Olanzapine (Olanzapine 5 Mg Tablet) 5 mg PO TID PRN PRN Reason: agitation Last Admin: 11/05/23 20:54 Dose: 5 mg Prazosin HCl (Prazosin Hcl 1 Mg Capsule) 3 mg PO BEDTIME WEN; Protocol Last Admin: 11/13/23 20:44 Dose: 3 mg Trazodone HCl (Trazodone Hcl 50 Mg Tablet) 50 mg PO BEDTIME MRX1 PRN PRN Reason: Insomnia Last Admin: 11/13/23 20:46 Dose: 50 mg Allergies Allergies Allergy/AdvReac Type Severity Reaction Status Date / Time No Known Allergies Allergy Verified 10/19/23 11:16 [No Known Allergies*] Assessment & Plan Assessment & Plan (1) Acute psychosis: Status: Acute Code(s): F23 - Brief psychotic disorder (2) Bipolar 1 disorder with moderate horacio: Status: Acute Code(s): F31.12 - Bipolar disorder, current episode manic without psychotic features, moderate Plan 28 yo finnish male, yakut speaking, with acute psychosis, bipolar disorder. Pt is reported to have gone to the [employer], made a gun gesture with his hands, asked for childrens names and stated, I otdd, I kill. He is religiously preoccupied, telling CARE he is God and threatening to kill his ex , their three children and himself. Plan: Admit, CV, 15 minute checks Collateral contact Three day notice filed, plan to file Section 7. Depakote ER 500 mg HS Haldol 5 mg bid Haldol 5 mg tid prn Prepare for Haldol Decanoate injection if po Haldol is tolerated Lorazepam 2 mg q 4 hours prn Olanzapine 5 mg daily Olanzapine 5 mg tid prn Prazosin 2 mg hs Trazodone 50 mg hs prn, MR x1 10/21- Continue current tx 10/22: continue current management and treatment plan. 10/23: continue current management and treatment plan. 10/24: Increase Depakote ER to 1000 mg HS Increase Haldol to 10 mg bid 10/26: Haldol Dec 50 mg IM 10/27. Pt agrees. 10/27 patient received Haldol deck without issue; remains improved Diet changed to regular 10/28 Continue current tx. 10/30/2023: No changes 10/31/2023: No changes 11/02/23: Continue tx. 11/04/23: Valproate level 11/04 Decrease Haldol to 5 mg bid Haldol Dec IM due 11/1011/05/23 DC scheduled Olanzapine Valproate level 71.6 11/05: Haldol Dec on 11/10. Otherwise continue current management and treatment plan. 11/06: continue current management and treatment plan. 11/08: Pt reports nightmares last night. Will increase Prazosin to 3 mg HS. Decrease Haldol to 2.5 mg bid Haldol Dec 50 mg IM 11/11/23 Pt will have ROLLY on 11/09. 11/09: Increase Depakote to 500 mg ER a.m. Continue HS dosing 11/11: Continue tx 11/13: Continue tx Reason for continued inpatient stay Substantial Risk for: rapid decompensation Time Spent With Patient Time: Total time managing care of this patient today ____ minutes.
[2023-11-14 19:57] VITALS: BP 127/64; PULSE 62; TEMP 36.3; O2SAT 98
[2023-11-14] MEDS: Divalproex Sodium ER 500 MG TAB.ER.24H 1000 MG PO (20:43)
[2023-11-14] MEDS: Prazosin HCL 1 MG CAPSULE 3 MG PO (20:44)
[2023-11-15 08:00] VITALS: BP 118/59; PULSE 54; RESP 16; TEMP 36.5; O2SAT 98
[2023-11-15] MEDS: Famotidine 20 MG TABLET PO ×2 (09:46→20:22)
[2023-11-15] MEDS: Divalproex Sodium ER 500 MG TAB.ER.24H PO (09:46)
[2023-11-15] MEDS: HaloperidoL 0.5 MG TABLET 2.5 MG PO ×2 (09:47→20:21)
--- NOTE | 2023-11-15 17:02 | HO.PSYCHPN ---
Subjective Subjective Date of Service: 11/15/23 Reason For Visit: bipolar disorder Subjective Notes: Section 7 Healthcare Proxy: No Guardianship: No Medical Problems Affecting Mental Status: No Interim History: Discharge planning with pt. Call to ex- with Izabela Preston OTR/L who interpreted; Miguelina Peterson [phone] who reports that she finds pt has improved and is at his baseline. She agrees with his plan to stay with her mother and possibly return to family of origin in the [facility] [place] as she states he will receive family support there. Mother in law Malorie [phone] will check in with and ask her opinion and if pt is welcome to stay with her. Medication Compliance: Yes Side effects from medications: No Attending Groups: No Review of Systems Acute medical concerns: No Medical Review of Systems: unchanged Review of Systems Review of Systems Yes all other systems are reviewed and are negative (denies) Mental Status Exam Mental Status Exam Patient Appearance: Appropriate Patient Orientation: Person, Place and Situation Level of Consciousness: Alert Patient Behavior: Appropriate, Talkative, Cooperative and Good Eye Contact Mood Description: Flat Affect Description: Flat Patient Cognition Impaired: No Ability to Follow Directions: Good Speech Pattern: Spontaneous Speech Memory Description: Episodic Impaired Hallucinations: None Delusions: Not Present Perceptual Disturbances: Derealization Thought Process: Rumination Thought Content: positive for Circumstantial Depressive Symptoms: Feelings of Guilt Judgement: Fair Diagnostics Vital Signs (24Hr): Vital Signs - 24 hr 11/14/23 19:57 11/15/23 08:00 Temperature 97.4 F 97.7 F Pulse Rate 62 54 Respiratory Rate 16 Blood Pressure 127/64 118/59 L Pulse Oximetry 98 98 Oxygen Delivery Method Room Air BMI result Body Mass Index 28.3 Labs 10/20/23 08:47 10/20/23 08:47 Medications Medications Current Medications Acetaminophen (Acetaminophen 325 Mg Tablet) 650 mg PO Q6H PRN PRN Reason: Headache/Pain Mild Scale (1-3) Al Hydroxide/Mg Hydroxide (Magnesium Hydrox/Alum Hydrox 30 Ml Oral.Susp) 30 ml PO Q6H PRN PRN Reason: Heartburn/Nausea Albuterol Sulfate (Albuterol Sulfate 90 Mcg 8 Gm Inhaler) 2 puff INHALE Q4H PRN PRN Reason: Wheezing Divalproex Sodium (Divalproex Sodium Er 500 Mg Tab.Er.24h) 1,000 mg PO BEDTIME WEN Last Admin: 11/14/23 20:43 Dose: 1,000 mg Divalproex Sodium (Divalproex Sodium Er 500 Mg Tab.Er.24h) 500 mg PO DAILY [facility]EN Last Admin: 11/15/23 09:46 Dose: 500 mg Famotidine (Famotidine 20 Mg Tablet) 20 mg PO BID [facility]EN Last Admin: 11/15/23 09:46 Dose: 20 mg Haloperidol (Haloperidol 5 Mg Tablet) 5 mg PO TID PRN PRN Reason: psychosis, agitation Last Admin: 11/11/23 21:58 Dose: 5 mg Haloperidol (Haloperidol 0.5 Mg Tablet) 2.5 mg PO BID WEN Last Admin: 11/15/23 09:47 Dose: 2.5 mg Hydroxyzine HCl (Hydroxyzine Hcl 25 Mg Tablet) 25 mg PO Q6H PRN PRN Reason: Anxiety Last Admin: 11/03/23 15:13 Dose: 25 mg Lorazepam (Lorazepam 1 Mg Tablet) 2 mg PO Q4H PRN PRN Reason: severe agitation Last Admin: 10/24/23 20:30 Dose: 2 mg Magnesium Hydroxide (Milk Of Magnesia 30 Ml Oral.Susp) 30 ml PO DAILY PRN PRN Reason: Constipation Nicotine (Nicotine 21 Mg Patch.Td24) 21 mg TRANSDERMA DAILY PRN PRN Reason: Nicotine Cravings Nicotine Polacrilex (Nicotine Polacrilex 2 Mg Gum) 4 mg BUCCAL Q2H PRN PRN Reason: Nicotine Cravings Olanzapine (Olanzapine 5 Mg Tablet) 5 mg PO TID PRN PRN Reason: agitation Last Admin: 11/05/23 20:54 Dose: 5 mg Prazosin HCl (Prazosin Hcl 1 Mg Capsule) 3 mg PO BEDTIME [facility]; Protocol Last Admin: 11/14/23 20:44 Dose: 3 mg Trazodone HCl (Trazodone Hcl 50 Mg Tablet) 50 mg PO BEDTIME MRX1 PRN PRN Reason: Insomnia Last Admin: 11/13/23 20:46 Dose: 50 mg Allergies Allergies Allergy/AdvReac Type Severity Reaction Status Date / Time No Known Allergies Allergy Verified 10/19/23 11:16 [No Known Allergies*] Assessment & Plan Assessment & Plan (1) Acute psychosis: Status: Acute Code(s): F23 - Brief psychotic disorder (2) Bipolar 1 disorder with moderate horacio: Status: Acute Code(s): F31.12 - Bipolar disorder, current episode manic without psychotic features, moderate Plan 28 yo martin male, japanese speaking, with acute psychosis, bipolar disorder. Pt is reported to have gone to the [employer], made a gun gesture with his hands, asked for childrens names and stated, I todd, I kill. He is religiously preoccupied, telling CARE he is God and threatening to kill his ex , their three children and himself. Plan: Admit, CV, 15 minute checks Collateral contact Three day notice filed, plan to file Section 7. Depakote ER 500 mg HS Haldol 5 mg bid Haldol 5 mg tid prn Prepare for Haldol Decanoate injection if po Haldol is tolerated Lorazepam 2 mg q 4 hours prn Olanzapine 5 mg daily Olanzapine 5 mg tid prn Prazosin 2 mg hs Trazodone 50 mg hs prn, MR x1 10/21- Continue current tx 10/22: continue current management and treatment plan. 10/23: continue current management and treatment plan. 10/24: Increase Depakote ER to 1000 mg HS Increase Haldol to 10 mg bid 10/26: Haldol Dec 50 mg IM 10/27. Pt agrees. 10/27 patient received Haldol deck without issue; remains improved Diet changed to regular 10/28 Continue current tx. 10/30/2023: No changes 10/31/2023: No changes 11/02/23: Continue tx. 11/04/23: Valproate level 11/04 Decrease Haldol to 5 mg bid Haldol Dec IM due 11/1011/05/23 DC scheduled Olanzapine Valproate level 71.6 11/05: Haldol Dec on 11/10. Otherwise continue current management and treatment plan. 11/06: continue current management and treatment plan. 11/08: Pt reports nightmares last night. Will increase Prazosin to 3 mg HS. Decrease Haldol to 2.5 mg bid Haldol Dec 50 mg IM 11/11/23 Pt will have ROLLY on 11/09. 11/09: Increase Depakote to 500 mg ER a.m. Continue HS dosing 11/11: Continue tx 11/14: Discharge planning Reason for continued inpatient stay Substantial Risk for: rapid decompensation Time Spent With Patient Time: Total time managing care of this patient today ____ minutes.
[2023-11-15 20:00] VITALS: BP 124/75; PULSE 71; TEMP 36.6; O2SAT 99
[2023-11-15] MEDS: traZODone HCL 50 MG TABLET PO (20:20)
[2023-11-15 20:23] VITALS: BP 124/75
[2023-11-15] MEDS: Prazosin HCL 1 MG CAPSULE 3 MG PO (20:23)
[2023-11-15] MEDS: Divalproex Sodium ER 500 MG TAB.ER.24H 1000 MG PO (20:23)
[2023-11-16 08:00] VITALS: BP 107/58; PULSE 55; RESP 18; TEMP 36.4; O2SAT 97
[2023-11-16] MEDS: Famotidine 20 MG TABLET PO ×2 (08:29→20:24)
[2023-11-16] MEDS: HaloperidoL 0.5 MG TABLET 2.5 MG PO ×2 (08:29→20:23)
[2023-11-16] MEDS: Divalproex Sodium ER 500 MG TAB.ER.24H PO (08:31)
--- NOTE | 2023-11-16 11:43 | HO.PSYCHPN ---
Subjective Subjective Date of Service: 11/16/23 Reason For Visit: bipolar disorder Subjective Notes: Section 7 Healthcare Proxy: No Guardianship: No Medical Problems Affecting Mental Status: No Interim History: Pt denies SI/HI/AH/VH. They are gone Feeling prepared to discharge. Message left with pt's mother in law as he reports he will stay with her. agrees that discharge plan is solid for him-to stay with mother in law and prepare to return to [facility] to family of origin's home. Medication Compliance: Yes Side effects from medications: No Attending Groups: No Review of Systems Acute medical concerns: No Medical Review of Systems: unchanged Review of Systems Review of Systems Yes all other systems are reviewed and are negative Mental Status Exam Mental Status Exam Patient Appearance: Appropriate Patient Orientation: Person, Place and Situation Level of Consciousness: Alert Patient Behavior: Appropriate, Talkative, Cooperative and Good Eye Contact Mood Description: Flat Affect Description: Flat Patient Cognition Impaired: No Ability to Follow Directions: Good Speech Pattern: Spontaneous Speech Memory Description: Episodic Impaired Hallucinations: None Delusions: Not Present Perceptual Disturbances: Derealization Thought Process: Rumination Thought Content: positive for Circumstantial Depressive Symptoms: Feelings of Guilt Judgement: Fair Diagnostics Vital Signs (24Hr): Vital Signs - 24 hr 11/15/23 20:00 11/15/23 20:23 11/16/23 08:00 Temperature 97.8 F 97.6 F Pulse Rate 71 55 Respiratory Rate 18 Blood Pressure 124/75 124/75 107/58 L Pulse Oximetry 99 97 Oxygen Delivery Method Room Air Room Air BMI result Body Mass Index 28.3 Labs 10/20/23 08:47 10/20/23 08:47 Medications Medications Current Medications Acetaminophen (Acetaminophen 325 Mg Tablet) 650 mg PO Q6H PRN PRN Reason: Headache/Pain Mild Scale (1-3) Al Hydroxide/Mg Hydroxide (Magnesium Hydrox/Alum Hydrox 30 Ml Oral.Susp) 30 ml PO Q6H PRN PRN Reason: Heartburn/Nausea Albuterol Sulfate (Albuterol Sulfate 90 Mcg 8 Gm Inhaler) 2 puff INHALE Q4H PRN PRN Reason: Wheezing Divalproex Sodium (Divalproex Sodium Er 500 Mg Tab.Er.24h) 1,000 mg PO BEDTIME WEN Last Admin: 11/15/23 20:23 Dose: 1,000 mg Divalproex Sodium (Divalproex Sodium Er 500 Mg Tab.Er.24h) 500 mg PO DAILY [facility] Last Admin: 11/16/23 08:31 Dose: 500 mg Famotidine (Famotidine 20 Mg Tablet) 20 mg PO BID [facility] Last Admin: 11/16/23 08:29 Dose: 20 mg Haloperidol (Haloperidol 5 Mg Tablet) 5 mg PO TID PRN PRN Reason: psychosis, agitation Last Admin: 11/11/23 21:58 Dose: 5 mg Haloperidol (Haloperidol 0.5 Mg Tablet) 2.5 mg PO BID [facility] Last Admin: 11/16/23 08:29 Dose: 2.5 mg Hydroxyzine HCl (Hydroxyzine Hcl 25 Mg Tablet) 25 mg PO Q6H PRN PRN Reason: Anxiety Last Admin: 11/03/23 15:13 Dose: 25 mg Lorazepam (Lorazepam 1 Mg Tablet) 2 mg PO Q4H PRN PRN Reason: severe agitation Last Admin: 10/24/23 20:30 Dose: 2 mg Magnesium Hydroxide (Milk Of Magnesia 30 Ml Oral.Susp) 30 ml PO DAILY PRN PRN Reason: Constipation Nicotine (Nicotine 21 Mg Patch.Td24) 21 mg TRANSDERMA DAILY PRN PRN Reason: Nicotine Cravings Nicotine Polacrilex (Nicotine Polacrilex 2 Mg Gum) 4 mg BUCCAL Q2H PRN PRN Reason: Nicotine Cravings Olanzapine (Olanzapine 5 Mg Tablet) 5 mg PO TID PRN PRN Reason: agitation Last Admin: 11/05/23 20:54 Dose: 5 mg Prazosin HCl (Prazosin Hcl 1 Mg Capsule) 3 mg PO BEDTIME [facility]; Protocol Last Admin: 11/15/23 20:23 Dose: 3 mg Trazodone HCl (Trazodone Hcl 50 Mg Tablet) 50 mg PO BEDTIME MRX1 PRN PRN Reason: Insomnia Last Admin: 11/15/23 20:20 Dose: 50 mg Allergies Allergies Allergy/AdvReac Type Severity Reaction Status Date / Time No Known Allergies Allergy Verified 10/19/23 11:16 [No Known Allergies*] Assessment & Plan Assessment & Plan (1) Acute psychosis: Status: Acute Code(s): F23 - Brief psychotic disorder (2) Bipolar 1 disorder with moderate horacio: Status: Acute Code(s): F31.12 - Bipolar disorder, current episode manic without psychotic features, moderate Plan 28 yo martin male, mongolian speaking, with acute psychosis, bipolar disorder. Pt is reported to have gone to the [employer], made a gun gesture with his hands, asked for childrens names and stated, I todd, I kill. He is religiously preoccupied, telling CARE he is God and threatening to kill his ex , their three children and himself. Plan: Admit, CV, 15 minute checks Collateral contact Three day notice filed, plan to file Section 7. Depakote ER 500 mg HS Haldol 5 mg bid Haldol 5 mg tid prn Prepare for Haldol Decanoate injection if po Haldol is tolerated Lorazepam 2 mg q 4 hours prn Olanzapine 5 mg daily Olanzapine 5 mg tid prn Prazosin 2 mg hs Trazodone 50 mg hs prn, MR x1 10/21- Continue current tx 10/22: continue current management and treatment plan. 10/23: continue current management and treatment plan. 10/24: Increase Depakote ER to 1000 mg HS Increase Haldol to 10 mg bid 10/26: Haldol Dec 50 mg IM 10/27. Pt agrees. 10/27 patient received Haldol deck without issue; remains improved Diet changed to regular 10/28 Continue current tx. 10/30/2023: No changes 10/31/2023: No changes 11/02/23: Continue tx. 11/04/23: Valproate level 11/04 Decrease Haldol to 5 mg bid Haldol Dec IM due 11/1011/05/23 DC scheduled Olanzapine Valproate level 71.6 11/05: Haldol Dec on 11/10. Otherwise continue current management and treatment plan. 11/06: continue current management and treatment plan. 11/08: Pt reports nightmares last night. Will increase Prazosin to 3 mg HS. Decrease Haldol to 2.5 mg bid Haldol Dec 50 mg IM 11/11/23 Pt will have ROLLY on 11/09. 11/09: Increase Depakote to 500 mg ER a.m. Continue HS dosing 11/11: Continue tx 11/14: Discharge planning 11/15: Discharge 11/17. Reason for continued inpatient stay Substantial Risk for: stable for discharge Time Spent With Patient Time: Total time managing care of this patient today ____ minutes.
[2023-11-16 20:00] VITALS: BP 132/81; PULSE 62; RESP 15; TEMP 36.6; O2SAT 98
[2023-11-16 20:22] VITALS: BP 132/81
[2023-11-16] MEDS: Prazosin HCL 1 MG CAPSULE 3 MG PO (20:22)
[2023-11-16] MEDS: Divalproex Sodium ER 500 MG TAB.ER.24H 1000 MG PO (20:23)
[2023-11-16] MEDS: traZODone HCL 50 MG TABLET PO (20:24)
[2023-11-17 08:00] VITALS: BP 118/75; PULSE 61; RESP 18; TEMP 36.5; O2SAT 97
[2023-11-17] MEDS: Famotidine 20 MG TABLET PO ×2 (10:00→19:55)
[2023-11-17] MEDS: Divalproex Sodium ER 500 MG TAB.ER.24H PO (10:00)
[2023-11-17] MEDS: HaloperidoL 0.5 MG TABLET 2.5 MG PO (10:00)
--- NOTE | 2023-11-17 10:26 | HO.PSYCHPN ---
Subjective Subjective Date of Service: 11/17/23 Reason For Visit: bipolar disorder Subjective Notes: Section 7 Healthcare Proxy: No Guardianship: No Medical Problems Affecting Mental Status: No Interim History: Discharge plan discussed with pt's mother in law, Malorie [phone] and Izabela Preston OTR/L. Malorie is in agreement with the plan and pt is welcomed to live with her during this time of transition for him. 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 Pt is very pleased with the plan and looking forward to seeing family. Medication Compliance: Yes Side effects from medications: No Attending Groups: No Review of Systems Acute medical concerns: No Medical Review of Systems: unchanged Review of Systems Review of Systems Yes all other systems are reviewed and are negative Mental Status Exam Mental Status Exam Patient Appearance: Appropriate Patient Orientation: Person, Place and Situation Level of Consciousness: Alert Patient Behavior: Appropriate, Talkative, Cooperative and Good Eye Contact Mood Description: Flat Affect Description: Flat Patient Cognition Impaired: No Ability to Follow Directions: Good Speech Pattern: Spontaneous Speech Memory Description: Episodic Impaired Hallucinations: None Delusions: Not Present Perceptual Disturbances: Derealization Thought Process: Rumination Thought Content: positive for Circumstantial Depressive Symptoms: Feelings of Guilt Judgement: Fair Diagnostics Vital Signs (24Hr): Vital Signs - 24 hr 11/16/23 20:00 11/16/23 20:22 11/17/23 08:00 Temperature 97.8 F 97.7 F Pulse Rate 62 61 Respiratory Rate 15 18 Blood Pressure 132/81 132/81 118/75 Pulse Oximetry 98 97 Oxygen Delivery Method Room Air BMI result Body Mass Index 28.3 Labs 10/20/23 08:47 10/20/23 08:47 Medications Medications Current Medications Acetaminophen (Acetaminophen 325 Mg Tablet) 650 mg PO Q6H PRN PRN Reason: Headache/Pain Mild Scale (1-3) Al Hydroxide/Mg Hydroxide (Magnesium Hydrox/Alum Hydrox 30 Ml Oral.Susp) 30 ml PO Q6H PRN PRN Reason: Heartburn/Nausea Albuterol Sulfate (Albuterol Sulfate 90 Mcg 8 Gm Inhaler) 2 puff INHALE Q4H PRN PRN Reason: Wheezing Divalproex Sodium (Divalproex Sodium Er 500 Mg Tab.Er.24h) 1,000 mg PO BEDTIME [facility]EN Last Admin: 11/16/23 20:23 Dose: 1,000 mg Divalproex Sodium (Divalproex Sodium Er 500 Mg Tab.Er.24h) 500 mg PO DAILY WEN Last Admin: 11/17/23 10:00 Dose: 500 mg Famotidine (Famotidine 20 Mg Tablet) 20 mg PO BID WEN Last Admin: 11/17/23 10:00 Dose: 20 mg Haloperidol (Haloperidol 5 Mg Tablet) 5 mg PO TID PRN PRN Reason: psychosis, agitation Last Admin: 11/11/23 21:58 Dose: 5 mg Haloperidol (Haloperidol 0.5 Mg Tablet) 2.5 mg PO BID WEN Last Admin: 11/17/23 10:00 Dose: 2.5 mg Hydroxyzine HCl (Hydroxyzine Hcl 25 Mg Tablet) 25 mg PO Q6H PRN PRN Reason: Anxiety Last Admin: 11/03/23 15:13 Dose: 25 mg Lorazepam (Lorazepam 1 Mg Tablet) 2 mg PO Q4H PRN PRN Reason: severe agitation Last Admin: 10/24/23 20:30 Dose: 2 mg Magnesium Hydroxide (Milk Of Magnesia 30 Ml Oral.Susp) 30 ml PO DAILY PRN PRN Reason: Constipation Nicotine (Nicotine 21 Mg Patch.Td24) 21 mg TRANSDERMA DAILY PRN PRN Reason: Nicotine Cravings Nicotine Polacrilex (Nicotine Polacrilex 2 Mg Gum) 4 mg BUCCAL Q2H PRN PRN Reason: Nicotine Cravings Olanzapine (Olanzapine 5 Mg Tablet) 5 mg PO TID PRN PRN Reason: agitation Last Admin: 11/05/23 20:54 Dose: 5 mg Prazosin HCl (Prazosin Hcl 1 Mg Capsule) 3 mg PO BEDTIME [facility]; Protocol Last Admin: 11/16/23 20:22 Dose: 3 mg Trazodone HCl (Trazodone Hcl 50 Mg Tablet) 50 mg PO BEDTIME MRX1 PRN PRN Reason: Insomnia Last Admin: 11/16/23 20:24 Dose: 50 mg Allergies Allergies Allergy/AdvReac Type Severity Reaction Status Date / Time No Known Allergies Allergy Verified 10/19/23 11:16 [No Known Allergies*] Assessment & Plan Assessment & Plan (1) Acute psychosis: Status: Acute Code(s): F23 - Brief psychotic disorder (2) Bipolar 1 disorder with moderate horacio: Status: Acute Code(s): F31.12 - Bipolar disorder, current episode manic without psychotic features, moderate Plan 28 yo kazakh male, malian speaking, with acute psychosis, bipolar disorder. Pt is reported to have gone to the [employer], made a gun gesture with his hands, asked for childrens names and stated, I todd, I kill. He is religiously preoccupied, telling CARE he is God and threatening to kill his ex , their three children and himself. Plan: Admit, CV, 15 minute checks Collateral contact Three day notice filed, plan to file Section 7. Depakote ER 500 mg HS Haldol 5 mg bid Haldol 5 mg tid prn Prepare for Haldol Decanoate injection if po Haldol is tolerated Lorazepam 2 mg q 4 hours prn Olanzapine 5 mg daily Olanzapine 5 mg tid prn Prazosin 2 mg hs Trazodone 50 mg hs prn, MR x1 10/21- Continue current tx 10/22: continue current management and treatment plan. 10/23: continue current management and treatment plan. 10/24: Increase Depakote ER to 1000 mg HS Increase Haldol to 10 mg bid 10/26: Haldol Dec 50 mg IM 10/27. Pt agrees. 10/27 patient received Haldol deck without issue; remains improved Diet changed to regular 10/28 Continue current tx. 10/30/2023: No changes 10/31/2023: No changes 11/02/23: Continue tx. 11/04/23: Valproate level 11/04 Decrease Haldol to 5 mg bid Haldol Dec IM due 11/1011/05/23 DC scheduled Olanzapine Valproate level 71.6 11/05: Haldol Dec on 11/10. Otherwise continue current management and treatment plan. 11/06: continue current management and treatment plan. 11/08: Pt reports nightmares last night. Will increase Prazosin to 3 mg HS. Decrease Haldol to 2.5 mg bid Haldol Dec 50 mg IM 11/11/23 Pt will have ROLLY on 11/09. 11/09: Increase Depakote to 500 mg ER a.m. Continue HS dosing 11/11: Continue tx 11/14: Discharge planning 11/16: Discharge 11/17 Valproate, CBCD, CHEMP in a.m. Reason for continued inpatient stay Substantial Risk for: stable for discharge Time Spent With Patient Time: Total time managing care of this patient today ____ minutes.
[2023-11-17 19:54] VITALS: BP 120/70
[2023-11-17] MEDS: Prazosin HCL 1 MG CAPSULE 3 MG PO (19:54)
[2023-11-17] MEDS: Divalproex Sodium ER 500 MG TAB.ER.24H 1000 MG PO (19:54)
[2023-11-17] MEDS: traZODone HCL 50 MG TABLET PO (19:55)
[2023-11-17] MEDS: HaloperidoL 5 MG TABLET PO (19:55)
[2023-11-17 20:00] VITALS: BP 138/84; PULSE 68; RESP 16; TEMP 36.8; O2SAT 98
[2023-11-18 08:00] VITALS: BP 116/56; PULSE 66; RESP 18; TEMP 36.7; O2SAT 97
[2023-11-18 09:13] LABS: MANUAL DIFF FLAG NO
[2023-11-18 09:17] LABS: Basophils Percent Auto 0.6 % (0-2); Eosinophils Percent Auto 1.3 % (0-4); Hematocrit 46.2 % (42.0-52.0); Hemoglobin 15.5 g/dl (14.0-18.0); Imm Gran Abs Auto 0.01 X10*3/uL (0.00-0.03); Imm Gran Pct Auto 0.3 % (0.0-0.4); Lymphocytes Absolute Auto 1.2 X10*3/uL (1.2-4.9); Mean Corpuscular HGB Conc 33.5 g/dl (31.0-36.0); Mean Corpuscular Hemoglobin 29.1 pg (27.0-33.0); Mean Corpuscular Volume 86.8 fL (80.0-98.0); Mean Platelet Volume 9.3 fL (9.4-12.4); Monocytes Absolute Auto 0.3 X10*3/uL (0.1-1.2); Monocytes Percent Auto 10.7 % (2-11); Neutrophils Absolute Auto 1.5 x10*3/uL (2.0-8.3); Neutrophils Percent Auto 48.1 % (45-73); Platelet Count 219 X10*3/uL (160-400); Red Blood Count 5.32 X10*6/uL (4.60-5.80); Red Cell Distribution Width 12.3 % (11.0-16.0); White Blood Count 3.1 X10*3/uL (4.8-10.8)
[2023-11-18] MEDS: Divalproex Sodium ER 500 MG TAB.ER.24H PO (09:20)
[2023-11-18] MEDS: Famotidine 20 MG TABLET PO (09:20)
[2023-11-18 09:29] LABS: Valproate 70.1 mcg/mL (50.0-100.0)
[2023-11-18 09:32] LABS: Alanine Aminotransferase 9 U/L (0-40); Albumin Level 4.2 g/dL (3.5-5.0); Alkaline Phosphatase 57 U/L (39-117); Anion Gap 14 (12-20); Aspartate Amino Transferase 12 U/L (5-37); Bilirubin Total 0.8 mg/dL (0.0-1.0); Blood Urea Nitrogen 13 mg/dL (9-16); Calcium 9.1 mg/dL (8.4-10.2); Carbon Dioxide 24 mmol/L (22-29); Chloride 106 mmol/L (96-108); Creatinine Clr Calc Pharmacy 128.6; Estimated Glomerular Filt Rate > 60; Glucose Random 81 mg/dL (60-115); Potassium 4.3 mmol/L (3.3-5.1); Sodium 140 mmol/L (135-145); Total Protein 7.3 g/dL (6.5-8.0)
--- NOTE | 2023-11-18 10:53 | PM.PSYDC ---
DS: Providers Provider Date of Service: 11/18/23 Date of admission: 10/20/23 14:24 Date of discharge: 11/18/23 Primary care physician: Unknown Physician Admitting clinician: Namita Thomson Attending physician on admission: Javi Wodo Attending physician on discharge: Javi Wood Discharging clinician: Namita Thomson DS: Diagnosis Discharge Diagnosis (1) Acute psychosis: Status: Acute (2) Bipolar 1 disorder with moderate horacio: Status: Acute DS: Medications Discharge Medications Home Medications: Home Medications ?Medication ?Instructions ?Recorded ?Confirmed albuterol sulfate 90 mcg/actuation 2 puff PO Q4-6H PRN Wheezing 02/04/21 10/19/23 aerosol inhaler (ProAir HFA) Previous Rx's ?Medication ?Instructions ?Recorded albuterol sulfate 90 mcg/actuation 2 puff inhalation Q4H PRN Wheezing 11/17/23 aerosol inhaler (Ventolin HFA) #1 inhaler divalproex 500 mg tablet,extended 1,000 mg (2 x 500 mg) PO BEDTIME 11/17/23 release 24 hr #60 tabs divalproex 500 mg tablet,extended 500 mg PO DAILY #30 tabs 11/17/23 release 24 hr famotidine 20 mg tablet 20 mg PO BID #60 tabs 11/17/23 haloperidol 5 mg tablet 5 mg PO BID PRN agitation #30 tabs 11/17/23 haloperidol decanoate 100 mg/mL 100 mg IM Q4W #1 mL 11/17/23 intramuscular solution (Haldol Decanoate) prazosin 1 mg capsule 3 mg PO BEDTIME #90 caps 11/17/23 Mental Status Exam Mental Status Exam Patient Appearance: Appropriate Patient Orientation: Person, Place and Situation Level of Consciousness: Alert Patient Behavior: Appropriate, Talkative, Cooperative and Good Eye Contact Mood Description: Flat Affect Description: Flat Patient Cognition Impaired: No Ability to Follow Directions: Good Speech Pattern: Spontaneous Speech Memory Description: Episodic Impaired Hallucinations: None Delusions: Not Present Thought Process: Goal Oriented Thought Content: positive for Circumstantial Depressive Symptoms: Feelings of Guilt Judgement: Good Data Data Completed and Pending Completed studies during hospitalization [Text1]: 11/18/23 08:48 WBC 3.1 L RBC 5.32 Hgb 15.5 Hct 46.2 MCV 86.8 MCH 29.1 MCHC 33.5 RDW 12.3 Plt Count 219 D MPV 9.3 L Immature Gran % (Auto) 0.3 Neut % (Auto) 48.1 Lymph % (Auto) 39.0 Story % (Auto) 10.7 Eos % (Auto) 1.3 Baso % (Auto) 0.6 Lymph # (Auto) 1.2 Story # (Auto) 0.3 Eos # (Auto) 0.0 Baso # (Auto) 0.0 Abs Immat Gran (auto) 0.01 Absolute Neuts (auto) 1.5 L Absolute Nucleated RBC 0.000 Nucleated RBC % (auto) 0.0 Sodium 140 Potassium 4.3 Chloride 106 Carbon Dioxide 24 Anion Gap 14 BUN 13 Creatinine 0.86 Estim Creat Clear Calc 128.6 Estimated GFR > 60 Random Glucose 81 Calcium 9.1 Total Bilirubin 0.8 AST 12 ALT 9 Alkaline Phosphatase 57 Total Protein 7.3 Albumin 4.2 Valproic Acid 70.1 DS: Summary Hospital Course Hospital Course: Admission to adult psychiatry for exacerbation of bipolar disorder with psychosis and schizoaffective disorder. Pt stopped meds prior to admission. It is reported he went to a local school and made a gun gesture and told officials he planned to kill people at the school along with his ex partner, his children and himself. He identified himself as God, planning to remove the drug problem and do the work of the yarsanism. Of note, family reported pt's yarsanism supports him in not taking medications or treating illness. Section Seven was filed. Pt, when medications were discussed asked for a DUNNE option, becoming more aware as his stay progressed that his actions prior to admission were severe and not in any way what he wanted or intended to act upon. He expressed much remorse and court was not needed as he was compliant with all treatment and in agreement with it. He will follow up with [facility]. [facility] has accepted him as a new client. For discharge, he will return to his ex mother in laws home with her agreement and his ex 's agreement. The group home plan is for pt to return to the family home in the [facility] [place] as he and family believe he will have more sound support and less influence from his local yarsanism which will help with his treatment compliance. [facility] will follow as well. Status at Discharge Functional status at discharge: independent ambulation Overall status at discharge: patient is progressing back to baseline Time Spent with Patient Time attestation: Total time managing care of this patient today ____ minutes. Time spent: Less than 30 minutes Discharge Plan Discharge Anticipated Discharge Date/Time: 11/18/23 12:00 Patient Disposition: Home, Self-Care Discharge Diagnosis: Bipolar Disorder with Psychosis Schizoaffective Disorder Referrals: Apryl Champagne: [facility] [Other] - 11/19/23 12:00 pm (Hospital Discharge Appointment Therapy appointment in person at [facility] in [place], [place].) Ismael Mcgill: [facility] [Other] - 12/09/23 4:40 pm (Hospital Discharge appointment with psychiatric provider Appointment is by tele-health (Telephone)) Department of Mental Health: Frantz Gilbert ([employer]) [Other] - 1 Week (Referral for [facility] services Commercial [employer] Instructor will be in contact with you after discharge to discuss services provided by [facility]. You may also reach out to home health care case manager if you have not heard from him in one week. ) Physician,Unknown J [Primary Care Provider] - 1 Week Discharge Medications: New prazosin 1 mg Capsule 3 mg PO BEDTIME Qty: 90 0RF Protocol: Hold for SBP< HOLD for SBP < : 90 divalproex 500 mg Tablet Extended Release 24 Hr 1,000 mg PO BEDTIME Qty: 60 0RF divalproex 500 mg Tablet Extended Release 24 Hr 500 mg PO DAILY Qty: 30 0RF albuterol sulfate [Ventolin HFA] 90 mcg/actuation Hfa Aerosol Inhaler 2 puff inhalation Q4H PRN (Reason: Wheezing) Qty: 1 0RF haloperidol 5 mg tablet 5 mg PO BID PRN (Reason: agitation) Qty: 30 0RF haloperidol decanoate [Haldol Decanoate] 100 mg/mL solution 100 mg IM Q4W Qty: 1 0RF Rx Instructions: Injection is due on December 12, 2023 Continued albuterol sulfate [ProAir HFA] 90 mcg/actuation HFA aerosol inhaler 2 puff PO Q4-6H PRN (Reason: Wheezing) famotidine 20 mg Tablet 20 mg PO BID Qty: 60 0RF Discontinued acetaminophen 500 mg tablet 1,000 mg PO QID PRN (Reason: pain) Qty: 20 0RF ibuprofen 600 mg tablet 600 mg PO Q8H PRN (Reason: pain) Qty: 30 0RF guaifenesin 200 mg tablet 200 mg PO TID PRN (Reason: cough) Qty: 10 0RF olanzapine 5 mg tablet 5 mg PO DAILY prazosin 2 mg capsule 2 mg PO BEDTIME Discharge Orders: Discharge Order (Routine); Ordered 11/18/23 Ordered By: Namita Thomson Diet: Advance to usual diet Activity on Discharge: As tolerated Stand Alone Forms: Patient Portal Discharge page, Community Support Print Language: Bengali Care Plan Goals: Mood and Behavioral Stabilization Health Concerns: Mood and Behavioral Stabilization Plan of Treatment: Attend scheduled appointments Take medications as directed Haldol Dec injection is due on November Assessment: Scheduled discharge No SI/HI/AH/VH Discharge Date/Time: 11/18/23 11:00
== END 2023-11-18 11:00 | disposition home or self-care (01) | DRG 753 ==
LOC: HO.ED 12:44 → HO.PM5 10-20 14:31
PROVIDERS: Admitting Provider Clinical Nurse Specialist Psychiatric/Mental Health, Adult; Emergency Provider Emergency Medicine; Visit Provider Clinical Nurse Specialist Psychiatric/Mental Health, Adult
DX: F31.2 Bipolar disorder, current episode manic severe with psychotic features (principal); Z79.899 Other long term (current) drug therapy
CPT/HCPCS: 36415; 80053; 80061; 80164; 80307; 82607; 82746; 83036; 83735; 84439; 84443; 85025; 93005; 99285; J1630; J1631; J2060; J2359; S9485

== ENCOUNTER → 2023-10-20 11:34 | Outpatient (BNV) | payer MEDICAID, SELFPAY | PROVIDERS: Admitting Provider Clinical Nurse Specialist Psychiatric/Mental Health, Adult; Emergency Provider Emergency Medicine; Visit Provider Internal Medicine Cardiovascular Disease | DX: R00.1 Bradycardia, unspecified (principal) | CPT/HCPCS: 93010 ==

== ENCOUNTER → 2023-10-20 14:24 | Outpatient (BNV) | payer OTHER, SELFPAY | PROVIDERS: Admitting Provider Clinical Nurse Specialist Psychiatric/Mental Health, Adult; Emergency Provider Emergency Medicine; Visit Provider Clinical Nurse Specialist Psychiatric/Mental Health, Adult | DX: F31.12 Bipolar disorder, current episode manic without psychotic features, moderate (principal); F23 Brief psychotic disorder | CPT/HCPCS: 99231; 99232; 99233 ==